=== PATIENT | male | born 1955 | race Two or more races ===

== ENCOUNTER 2019-08-21 15:10 | Inpatient (IN) | payer MEDICAID ==
[~2019-08-21] VITALS: Ht 167.6 cm; Wt 96.6 kg
--- NOTE | 2019-08-21 15:12 | Emergency Room Report ---
History of Present Illness General Chief Complaint: Chest Pain Present Illness HPI Patient is a 66-year-old male presents after increased chest pain for the past 3 days. Prior history of congestive heart failure and pacemaker placement. No prior history of coronary artery disease. He normally takes carvedilol as well as Lasix twice a day. Reports having increased pain at night. States that he had been having some increased difficulty with breathing. He had been given nitroglycerin as well as aspirin by paramedics minimal improvement. Stepped from a bus. He is normally ambulatory with a walker.Patient had onset of symptoms yesterday. Patient had reportedly been compliant with his medications which include Lasix as well as medications for high cholesterol and hypertension. Allergies: Coded Allergies: No Known Allergies (Unverified , 08/21/19) Patient History Past Medical History: see triage record Past Surgical History: pacemaker Reviewed Nursing Documentation: PMH: Agreed; PSxH: Agreed Review of Systems All Other Systems: negative except mentioned in HPI Physical Exam Vital Signs Date Time Temp Pulse Resp B/P (MAP) Pulse Ox O2 Delivery O2 Flow Rate FiO2 08/21/19 15:07 98.2 110 16 168/96 (120) 96 Room Air Sp02 EP Interpretation: reviewed, normal General Appearance: alert, GCS 15, obese Head: atraumatic ENT: normal ENT inspection, hearing grossly normal, normal voice Neck: normal inspection, full range of motion, supple, no bony tend Respiratory: normal inspection, no respiratory distress, no retraction Cardiovascular #1: regular rate, rhythm, no edema Gastrointestinal: normal inspection, normal bowel sounds, non tender, soft, no guarding, no hernia Genitourinary: no CVA tenderness Musculoskeletal: normal inspection, back normal, normal range of motion Neurologic: alert, motor strength/tone normal, utility aide III-XII nml as tested, oriented x3, responsive, speech normal, normal inspection Psychiatric: normal inspection, judgement/insight normal, mood/affect normal Medical Decision Making Diagnostic Impression: Primary Impression: Chest pain Additional Impressions: Abnormal LFTs Metabolic acidosis Elevated troponin ER Course Patient presented for chest pain. Differential diagnosis included but was not limited to acute coronary syndrome, pulmonary embolism, pneumonia, aortic dissection, shingles, pneumothorax, aortic dissection, esophageal rupture, pericarditis. Because of complexity of patient's case laboratory tests and imaging studies were ordered. EKG showed Sinus tachycardia with a rate of [address] or T wave changes. CXR showed cardiomegaly without infiltrate. Patient was given lasix and aspirin. Dr. Williamson was contacted for admission due to covering physician for Dr. Verde. Labs Test 08/21/19 15:45 08/21/19 18:35 White Blood Count 10.1 K/UL (4.8-10.8) Red Blood Count 4.71 M/UL (4.70-6.10) Hemoglobin 14.5 G/DL (14.2-18.0) Hematocrit 43.7 % (42.0-52.0) Mean Corpuscular Volume 93 FL (80-99) Mean Corpuscular Hemoglobin 30.7 PG (27.0-31.0) Mean Corpuscular Hemoglobin Concent 33.1 G/DL (32.0-36.0) Red Cell Distribution Width 14.7 % (11.6-14.8) Platelet Count 239 K/UL (150-450) Mean Platelet Volume 6.2 FL (6.5-10.1) Neutrophils (%) (Auto) 81.4 % (45.0-75.0) Lymphocytes (%) (Auto) 14.1 % (20.0-45.0) Monocytes (%) (Auto) 3.7 % (1.0-10.0) Eosinophils (%) (Auto) 0.0 % (0.0-3.0) Basophils (%) (Auto) 0.8 % (0.0-2.0) Sodium Level 139 MMOL/L (136-145) Potassium Level 3.4 MMOL/L (3.5-5.1) Chloride Level 97 MMOL/L (98-107) Carbon Dioxide Level 13 MMOL/L (21-32) Anion Gap 29 mmol/L (5-15) Blood Urea Nitrogen 16 mg/dL (7-18) Creatinine 0.9 MG/DL (0.55-1.30) Estimat Glomerular Filtration Rate > 60 mL/min (>60) Glucose Level 154 MG/DL (74-106) Calcium Level 8.2 MG/DL (8.5-10.1) Total Bilirubin 1.6 MG/DL (0.2-1.0) Direct Bilirubin 0.4 MG/DL (0.0-0.3) Aspartate Amino Transf (AST/SGOT) 485 U/L (15-37) Alanine Aminotransferase (ALT/SGPT) 369 U/L (12-78) Alkaline Phosphatase 86 U/L (46-116) Pro-B-Type Natriuretic Peptide 904 pg/mL (0-125) Total Protein 7.5 G/DL (6.4-8.2) Albumin 3.3 G/DL (3.4-5.0) Globulin 4.2 g/dL Albumin/Globulin Ratio 0.8 (1.0-2.7) Lipase 328 U/L (73-393) Troponin I 0.117 ng/mL (0.000-0.056) EKG Diagnostic Results Rate: normal Rhythm: NSR ST Segments: no acute changes Last Vital Signs Date Time Temp Pulse Resp B/P (MAP) Pulse Ox O2 Delivery O2 Flow Rate FiO2 08/21/19 15:07 98.2 110 16 168/96 (120) 96 Room Air Status: improved Disposition: ADMITTED INPATIENT Condition: Stable Scripts Unable to Obtain Active Prescriptions or Reported Meds Moris Rayo MD Aug 21, 2019 15:12
[2019-08-21] MEDS ORDERED: Metoprolol Tartrate 5mg/5ml Inj IVP ONE ×2 (15:30→18:45)
[2019-08-21] MEDS ORDERED: Morphine Sulfate 2mg/ml Inj(IV/IM USE ONLY) IVP ONE (15:30)
--- NOTE | 2019-08-21 15:30 | NUR ---
ED Nurse Note:pt. was BIBA from the bus stop with c/o chest pain since yesterday, pt. is A/Ox4, ambulatory with walker, pt. has left chest pacemaker
--- NOTE | 2019-08-21 15:49 | NUR ---
ED Nurse Note:blood sent to labs and IV meds given
--- NOTE | 2019-08-21 16:05 | Diagnostic Imaging Report ---
Indication: Dyspnea Comparison: None A single view chest radiograph was obtained. Findings: No definite infiltrate or pulmonary vascular congestion identified. Single lead pacemaker demonstrated in the left anterior chest wall. The heart is enlarged. The aorta is mildly enlarged consistent with atherosclerotic vascular disease. The bones are osteopenic. There are thoracic vertebral enthesophytes at multiple levels. Impression: No acute disease
[2019-08-21 16:10] VITALS: BP 168/96
[2019-08-21 16:58] LABS: BASOPHILS % (AUTO) 0.8 % (0.0-2.0); HEMATOCRIT 43.7 % (42.0-52.0); HEMOGLOBIN 14.5 G/DL (14.2-18.0); LYMPHOCYTES % (AUTO) 14.1 % (20.0-45.0); MEAN CORPUSCULAR VOLUME 93 FL (80-99); MONOCYTES % (AUTO) 3.7 % (1.0-10.0); NEUTROPHILS % (AUTO) 81.4 % (45.0-75.0); PLATELET COUNT 239 K/UL (150-450); RED BLOOD COUNT 4.71 M/UL (4.70-6.10); RED CELL DISTRIBUTION WIDTH 14.7 % (11.6-14.8); WHITE BLOOD COUNT 10.1 K/UL (4.8-10.8)
[2019-08-21 17:08] LABS: ANION GAP 29 mmol/L (5-15); BLOOD UREA NITROGEN 16 mg/dL (7-18); CALCIUM 8.2 MG/DL (8.5-10.1); CARBON DIOXIDE 13 MMOL/L (21-32); CHLORIDE 97 MMOL/L (98-107); CREATININE 0.9 MG/DL (0.55-1.30); POTASSIUM 3.4 MMOL/L (3.5-5.1); SODIUM 139 MMOL/L (136-145)
[2019-08-21 17:19] LABS: ALANINE AMINOTRANSFERASE 369 U/L (12-78); ALBUMIN 3.3 G/DL (3.4-5.0); ALBUMIN/GLOBULIN RATIO 0.8 (1.0-2.7); ALKALINE PHOSPHATASE 86 U/L (46-116); ASPARTATE AMINO TRANSFERASE 485 U/L (15-37); BILIRUBIN,TOTAL 1.6 MG/DL (0.2-1.0)
[2019-08-21 17:20] LABS: BILIRUBIN,DIRECT 0.4 MG/DL (0.0-0.3)
[2019-08-21 18:14] VITALS: BP 143/91
[2019-08-21] MEDS: Nitroglycerin Subl 0.4mg tab SL PRN ×2 (18:14→18:19)
[2019-08-21] MEDS ORDERED: Morphine Sulfate 4mg/ml Inj (IV USE ONLY) IVP ONE (18:45)
--- NOTE | 2019-08-21 18:52 | NUR ---
ED Nurse Note:repeat troponin sent to labs
[2019-08-21 18:54] VITALS: BP 152/92
[2019-08-21] MEDS ORDERED: Metoprolol Tartrate 5mg/5ml Inj ONE (19:18)
--- NOTE | 2019-08-21 19:19 | NUR ---
ED Nurse Note:second dose out x3 order of metoprolol IV was given
[2019-08-21 19:30] VITALS: BP 148/89
--- NOTE | 2019-08-21 19:30 | NUR ---
ED Nurse Note: received patient from michaela madera. patient in bed with no acute distress. us at bedside. vss.
--- NOTE | 2019-08-21 20:00 | NUR ---
ED Nurse Note: mrsa vre cre swab collected; sent down to lab. belongings list completed.
--- NOTE | 2019-08-21 20:01 | Diagnostic Imaging Report ---
Indication: Abdominal pain Technique: Grayscale and duplex Doppler imaging of the abdomen performed. Comparison: None Findings: Exam is limited by body habitus and bowel gas. The liver is echogenic consistent with fatty infiltration. Doppler interrogation of the main portal vein shows patency with hepatopedal, monophasic flow. There is no biliary ductal dilatation identified. Gallbladder is unremarkable. No obvious stones identified in the gallbladder. Pancreas aorta and IVC are not seen. There is no hydronephrosis. There may be a small stone in the right kidney nonobstructive. IMPRESSION: Fatty liver Suspected nonobstructive stone right kidney. Limited evaluation due to bowel gas
[2019-08-21] MEDS ORDERED: DiphenhydrAMINE 25mg Tab ORAL PRN (20:02)
[2019-08-21] MEDS ORDERED: Nitroglycerin Subl 0.4mg tab SL PRN (20:02)
[2019-08-21 20:40] VITALS: BP 149/93
[2019-08-21] MEDS: D5 1/2NS 1,000 ML IV SCH (21:00)
--- NOTE | 2019-08-21 21:10 | NUR ---
TRANSFER TO FLOOR: Patient transferred to [facility] 208-2 as ordered, per osman lamar. Report given to hsai madera. patient stable for transfer. patient transferred to floor via gurney with grover and rn. belongings and admission packet sent with patient.
[2019-08-21 21:15] VITALS: BP 158/102
--- NOTE | 2019-08-21 21:15 | NUR ---
NURSE NOTES: Received report from Luis Greer RN. Patient was transferred from ED to Telemetry via gurney accompanied by 2 staff members, without any incident. Patient transferred to hospital bed via ambulation with assistance. No signs of acute distress noted. A/Ox4. Primarily German speaking. Checked IV site and flushed. No signs of erythema, bleeding or infiltration noted. Placed tele box on, SR on the monitor, 90bpm. Body assessment done without any skin issues. Belongings list checked done with transferring RN. Walker at bedside. Bed at lowest position, brakes on, siderailsx2. Will continue to monitor. Dr. Lr placed in admitting orders. Noted and carried out.
[2019-08-21] MEDS: Heparin 5000 units/ml inj SUBQ SCH (21:52)
[2019-08-21] MEDS: Docusate 100mg cap ORAL SCH (21:52)
[2019-08-21] MEDS: Hydromorphone 0.5mg/0.5ml inj IVP PRN (21:54)
[2019-08-21] MEDS: LORazepam Inj 2mg/ml 1ml IV PRN (23:37)
[2019-08-22] VITALS: BP 139/84
--- NOTE | 2019-08-22 01:05 | NUR ---
NURSE NOTES: Per field technical specialist, patient has 5 beats of V tach on the monitor, 93 bpm. Immediately went to patient's room, patient is asleep, arousable to name. No signs of acute distress. Patient complained of chest pain, nonradiating, with a pain scale of 7/10. Offered oxygen. Comfort care provided. PRN pain medication given. Will continue to monitor.
[2019-08-22] MEDS: HYDROmorphone 1mg/ml Carpuject IVP PRN (01:26)
[2019-08-22 04:00] VITALS: BP 134/79
--- NOTE | 2019-08-22 04:33 | NUR ---
NURSE NOTES: Resting throughout the night. No significant change of condition noted. Will continue to monitor.
[2019-08-22] MEDS: LORazepam Inj 2mg/ml 1ml IV PRN (06:10)
--- NOTE | 2019-08-22 07:33 | NUR ---
HAND-OFF: Report given to JORGE Zamudio. Plan of care endorsed.
[2019-08-22 08:00] VITALS: BP 160/113
--- NOTE | 2019-08-22 08:06 | NUR ---
NURSE NOTES: recvd report from JORGE Duarte. Pt appears anxious. per Night RN, [facility] will continue dr for alternative anxiety meds/ Addendum: 08/22/19 at 0811 by MICHAEL RUIZ RN Pt is AOx4, pt is on room air. pt is NPO and has left hand 20g running D51/2NS @ 75/hr. Bed in lowest position, call light within reach, will continue with plan of care
[2019-08-22 08:27] LABS: BASOPHILS % (AUTO) 1.7 % (0.0-2.0); EOSINOPHILS % (AUTO) 0.7 % (0.0-3.0); HEMATOCRIT 43.6 % (42.0-52.0); HEMOGLOBIN 15.1 G/DL (14.2-18.0); LYMPHOCYTES % (AUTO) 41.7 % (20.0-45.0); MEAN CORPUSCULAR VOLUME 90 FL (80-99); MONOCYTES % (AUTO) 12.2 % (1.0-10.0); NEUTROPHILS % (AUTO) 43.8 % (45.0-75.0); PLATELET COUNT 223 K/UL (150-450); RED BLOOD COUNT 4.85 M/UL (4.70-6.10); RED CELL DISTRIBUTION WIDTH 12.7 % (11.6-14.8); WHITE BLOOD COUNT 6.4 K/UL (4.8-10.8)
[2019-08-22 08:58] LABS: ALANINE AMINOTRANSFERASE 294 U/L (12-78); ALBUMIN 3.5 G/DL (3.4-5.0); ALBUMIN/GLOBULIN RATIO 0.8 (1.0-2.7); ALKALINE PHOSPHATASE 79 U/L (46-116); ANION GAP 19 mmol/L (5-15); ASPARTATE AMINO TRANSFERASE 313 U/L (15-37); BILIRUBIN,TOTAL 1.7 MG/DL (0.2-1.0); BLOOD UREA NITROGEN 10 mg/dL (7-18); CALCIUM 8.5 MG/DL (8.5-10.1); CARBON DIOXIDE 22 MMOL/L (21-32); CHLORIDE 97 MMOL/L (98-107); CREATININE 0.7 MG/DL (0.55-1.30); POTASSIUM 3.5 MMOL/L (3.5-5.1); SODIUM 138 MMOL/L (136-145)
[2019-08-22 08:59] LABS: BILIRUBIN,DIRECT 0.3 MG/DL (0.0-0.3)
[2019-08-22] MEDS ORDERED: LORazepam Inj 2mg/ml 1ml IV PRN (09:00)
[2019-08-22] MEDS ORDERED: Tubing IV Secondary IV ONE (09:01)
[2019-08-22] MEDS ORDERED: D5 1/2NS 1000ml IV ONE (09:01)
[2019-08-22] MEDS: Docusate 100mg cap ORAL SCH ×2 (09:14→21:04)
[2019-08-22] MEDS: Pantoprazole Inj IV SCH (09:14)
[2019-08-22] MEDS: Carvedilol 6.25mg Tab ORAL SCH (09:15)
[2019-08-22] MEDS: Furosemide 40mg tab ORAL SCH (09:15)
[2019-08-22] MEDS: Losartan 25mg tab ORAL SCH (09:15)
[2019-08-22] MEDS: Heparin 5000 units/ml inj SUBQ SCH (09:16)
[2019-08-22] MEDS: D5 1/2NS 1,000 ML IV SCH ×2 (09:25→23:58)
[2019-08-22] MEDS ORDERED: Omnipaque-300 100ml vial INJ PRN (10:30)
--- NOTE | 2019-08-22 11:05 | GI Initial Consult Note ---
History of Present Illness General Date patient seen: Aug 22, 2019 Time patient seen: 10:59 Reason for Hospitalization: Chest Pain Referring physician: JORGE L Reason for Consultation: ABNORMAL LFTs Present Illness HPI Patient is a 66-year-old male presents after increased chest pain for the past 3 days. Prior history of congestive heart failure and pacemaker placement. No prior history of coronary artery disease. He normally takes carvedilol as well as Lasix twice a day. Reports having increased pain at night. States that he had been having some increased difficulty with breathing. He had been given nitroglycerin as well as aspirin by paramedics minimal improvement. Stepped from a bus. He is normally ambulatory with a walker.Patient had onset of symptoms yesterday. Patient had reportedly been compliant with his medications which include Lasix as well as medications for high cholesterol and hypertension. GI consulted for reported abnormal LFTs. Patient seen, awake alert oriented x4 no apparent distress. The patient had complaint of chest pain which has improved. The patient has no active signs or symptoms of any nausea vomiting. Denied any constipation or diarrhea. The patient did state he had a history of endoscopy, but unsure of exact date. The patient had an abdominal ultrasound performed however the aorta, IVC and pancreas was not visualized secondary to overlying bowel gas and the patient's body habitus. Steatosis of the liver was present. No abdominal fluid collections noted. Labs reviewed note that the patient's total bilirubin 1.7 AST 313, ALT 294, troponin 0.117. Home Meds Unable to Obtain Active Prescriptions or Reported Meds Med list reviewed/reconciled: Yes Allergies: Coded Allergies: No Known Allergies (Unverified , 08/21/19) Patient History PMH Narrative Past Medical History: see triage record Past Surgical History: pacemaker Reviewed Nursing Documentation: PMH: Agreed; PSxH: Agreed Review of Systems All Other Systems: negative except mentioned in HPI Physical Exam Vital Signs Date Time Temp Pulse Resp B/P (MAP) Pulse Ox O2 Delivery O2 Flow Rate FiO2 08/21/19 15:07 98.2 110 16 168/96 (120) 96 Room Air Sp02 EP Interpretation: reviewed, normal Labs Laboratory Tests Test 08/21/19 15:45 08/21/19 18:35 08/22/19 07:40 White Blood Count 10.1 K/UL (4.8-10.8) 6.4 K/UL (4.8-10.8) Red Blood Count 4.71 M/UL (4.70-6.10) 4.85 M/UL (4.70-6.10) Hemoglobin 14.5 G/DL (14.2-18.0) 15.1 G/DL (14.2-18.0) Hematocrit 43.7 % (42.0-52.0) 43.6 % (42.0-52.0) Mean Corpuscular Volume 93 FL (80-99) 90 FL (80-99) Mean Corpuscular Hemoglobin 30.7 PG (27.0-31.0) 31.2 PG (27.0-31.0) H Mean Corpuscular Hemoglobin Concent 33.1 G/DL (32.0-36.0) 34.7 G/DL (32.0-36.0) Red Cell Distribution Width 14.7 % (11.6-14.8) 12.7 % (11.6-14.8) Platelet Count 239 K/UL (150-450) 223 K/UL (150-450) Mean Platelet Volume 6.2 FL (6.5-10.1) L 5.7 FL (6.5-10.1) L Neutrophils (%) (Auto) 81.4 % (45.0-75.0) H 43.8 % (45.0-75.0) L Lymphocytes (%) (Auto) 14.1 % (20.0-45.0) L 41.7 % (20.0-45.0) Monocytes (%) (Auto) 3.7 % (1.0-10.0) 12.2 % (1.0-10.0) H Eosinophils (%) (Auto) 0.0 % (0.0-3.0) 0.7 % (0.0-3.0) Basophils (%) (Auto) 0.8 % (0.0-2.0) 1.7 % (0.0-2.0) Sodium Level 139 MMOL/L (136-145) 138 MMOL/L (136-145) Potassium Level 3.4 MMOL/L (3.5-5.1) L 3.5 MMOL/L (3.5-5.1) Chloride Level 97 MMOL/L (98-107) L 97 MMOL/L (98-107) L Carbon Dioxide Level 13 MMOL/L (21-32) L 22 MMOL/L (21-32) Anion Gap 29 mmol/L (5-15) H 19 mmol/L (5-15) H Blood Urea Nitrogen 16 mg/dL (7-18) 10 mg/dL (7-18) Creatinine 0.9 MG/DL (0.55-1.30) 0.7 MG/DL (0.55-1.30) Estimat Glomerular Filtration Rate > 60 mL/min (>60) > 60 mL/min (>60) Glucose Level 154 MG/DL (74-106) H 141 MG/DL (74-106) H Calcium Level 8.2 MG/DL (8.5-10.1) L 8.5 MG/DL (8.5-10.1) Total Bilirubin 1.6 MG/DL (0.2-1.0) H 1.7 MG/DL (0.2-1.0) H Direct Bilirubin 0.4 MG/DL (0.0-0.3) H 0.3 MG/DL (0.0-0.3) Aspartate Amino Transf (AST/SGOT) 485 U/L (15-37) H 313 U/L (15-37) H Alanine Aminotransferase (ALT/SGPT) 369 U/L (12-78) H 294 U/L (12-78) H Alkaline Phosphatase 86 U/L (46-116) 79 U/L (46-116) Troponin I 0.109 ng/mL (0.000-0.056) 0.117 ng/mL (0.000-0.056) Pro-B-Type Natriuretic Peptide 904 pg/mL (0-125) H Total Protein 7.5 G/DL (6.4-8.2) 7.9 G/DL (6.4-8.2) Albumin 3.3 G/DL (3.4-5.0) L 3.5 G/DL (3.4-5.0) Globulin 4.2 g/dL 4.4 g/dL Albumin/Globulin Ratio 0.8 (1.0-2.7) L 0.8 (1.0-2.7) L Lipase 328 U/L (73-393) General Appearance: well appearing, no apparent distress, alert Head: normocephalic EENT: PERRL/EOMI, normal ENT inspection Neck: supple Respiratory: normal breath sounds, no respiratory distress Cardiovascular: normal rate Gastrointestinal: normal inspection, non tender, soft, normal bowel sounds, non -distended Rectal: deferred Genitourinary: deferred Musculoskeletal: normal inspection, back normal Neurologic: alert, oriented x3, responsive, normal inspection Psychiatric: normal inspection, judgement/insight normal, memory normal Skin: normal inspection, normal color, no rash, warm/dry, palpation normal, well hydrated Lymphatic: normal inspection, no adenopathy Current Medications Current Medications Medications (Trade) Dose Ordered Sig/Fay Route PRN Reason Start Time Stop Time Status Last Admin Dose Admin Acetaminophen (Tylenol) 650 mg Q4H PRN ORAL Mild Pain (Pain Scale 1-3) 08/21/19 20:02 09/20/19 20:01 Barium Sulfate (Readi-Cat 2) 450 ml NOW PRN ORAL Radiology Procedure 08/22/19 10:30 08/24/19 10:28 Carvedilol (Coreg) 6.25 mg DAILY ORAL 08/22/19 09:00 09/21/19 08:59 08/22/19 09:15 Dextrose (Dextrose 50%) 25 ml Q30M PRN IV Hypoglycemia 08/21/19 20:02 09/20/19 20:01 Dextrose (Dextrose 50%) 50 ml Q30M PRN IV Hypoglycemia 08/21/19 20:02 09/20/19 20:01 Dextrose/Sodium Chloride 1,000 ml @ 75 mls/hr [id number] IV 08/21/19 21:00 09/20/19 20:59 08/22/19 09:25 Diphenhydramine HCl (Benadryl) 25 mg Q6H PRN ORAL Itching/Pruritis 08/21/19 20:02 09/20/19 20:01 Docusate Sodium (Colace) 100 mg EVERY 12 HOURS ORAL 08/21/19 21:00 09/20/19 20:59 08/22/19 09:14 Furosemide (Lasix) 40 mg DAILY ORAL 08/22/19 09:00 09/21/19 08:59 08/22/19 09:15 Heparin Sodium (Porcine) (Heparin 5000 units/ml) 5,000 units EVERY 12 HOURS SUBQ 08/21/19 21:00 09/20/19 20:59 08/22/19 09:16 Hydromorphone HCl (Dilaudid) 0.5 mg Q4H PRN IVP Moderate Pain (Pain Scale 4-6) 08/21/19 20:07 08/28/19 20:06 08/21/19 21:54 Hydromorphone HCl (Dilaudid) 1 mg Q4H PRN IVP Severe Pain (Pain Scale 7-10) 08/21/19 20:07 08/28/19 20:06 08/22/19 01:26 Iohexol (OMNIPAQUE-300 100ml) 100 ml NOW PRN INJ Radiology Procedure 08/22/19 10:30 08/24/19 10:28 Lorazepam (Ativan 2mg/ml 1ml) 1 mg Q4H PRN IV For Anxiety 08/22/19 09:00 08/29/19 08:59 08/22/19 09:17 Losartan Potassium (Cozaar) 25 mg DAILY ORAL 08/22/19 09:00 09/21/19 08:59 08/22/19 09:15 Nitroglycerin (Ntg) 0.4 mg Q5M X 3 DOSES PRN SL Prn Chest Pain 08/21/19 20:02 09/20/19 20:01 08/22/19 09:17 Ondansetron HCl (Zofran) 4 mg Q6H PRN IVP Nausea & Vomiting 08/21/19 20:02 09/20/19 20:01 08/21/19 21:52 Pantoprazole (Protonix) 40 mg DAILY IV 08/22/19 09:00 09/21/19 08:59 08/22/19 09:14 GI: Plan Problems: (1) Abnormal LFTs (2) Chest pain (3) Elevated troponin (4) Metabolic acidosis Plan Abdominal ultrasound review >> unable to visualize given patient's body habitus and overlying gas Will obtain abdominal pelvis CT to evaluate hepatocellular versus cholestatic disease Transaminitis could also be elevated due to hepatic congestion given the patient has prior history of CHF Will obtain hepatitis panel to rule out any viral infection No plans for any GI procedures at this time given elevated troponin levels Follow-up cardiology recommendations We will consider GI procedures if needed Repeat liver function test for tomorrow Advance diet as tolerated PPI We will follow on a daily basis with any additional recommendations Discussed with Dr. Viera. Thank you for this patient referral, we will follow. The patient was seen and examined at bedside and all new and available data was reviewed in the patients chart. I agree with the above findings, impression and plan. (Patient seen earlier today. Signature stamp does not reflect patient encounter time.). - MD Andreia MiguelReunion Rehabilitation Hospital PhoenixOlivia RETAIL BUSINESS MANAGER Aug 22, 2019 11:05
--- NOTE | 2019-08-22 11:43 | Consultation ---
History of Present Illness General Date patient seen: Aug 22, 2019 Time patient seen: 11:30 Chief Complaint: Chest Pain Referring physician: JORGE L Reason for Consultation: ABNORMAL LFTs Present Illness HPI Patient is a 66-year-old male presents after increased chest pain for the past 3 days. Patient has prior hx of CHF and PPM. Cardiology consulted for elevated /rising troponin. CP improved with aspirin and nitro. Initial troponin 0.117. Patient also had episode of NSVT. Allergies: Coded Allergies: No Known Allergies (Unverified , 08/21/19) Medication History Unable to Obtain Active Prescriptions or Reported Meds Patient History Healthcare decision maker N Resuscitation status Full Code Advanced Directive on File Review of Systems Constitutional: Reports: no symptoms Eye: Reports: no symptoms ENT: Reports: no symptoms Respiratory: Reports: no symptoms Cardiovascular: Reports: chest pain Gastrointestinal: Reports: no symptoms Genitourinary: Reports: no symptoms Musculoskeletal: Reports: no symptoms Skin: Reports: no symptoms Psychiatric: Reports: no symptoms Neurological: Reports: no symptoms Endocrine: Reports: no symptoms Hematologic/Lymphatic: Reports: no symptoms Physical Exam General Appearance: no apparent distress, alert Lines, tubes and drains: peripheral HEENT: normocephalic, atraumatic Neck: non-tender, normal alignment, supple, normal inspection Respiratory/Chest: chest wall non-tender, lungs clear, normal breath sounds, no respiratory distress, no accessory muscle use Cardiovascular/Chest: normal peripheral pulses, normal rate, regular rhythm Abdomen: normal bowel sounds, non tender Extremities: normal range of motion, non-tender, normal inspection Skin Exam: normal pigmentation, warm/dry, cyanotic Neurologic: databases software consultant II-XII grossly normal, no motor/sensory deficits Last 24 Hour Vital Signs Date Time Temp Pulse Resp B/P (MAP) Pulse Ox O2 Delivery O2 Flow Rate FiO2 08/22/19 09:17 160/113 08/22/19 09:15 160/113 08/22/19 09:15 97 160/113 08/22/19 08:00 91 08/22/19 08:00 98.0 97 20 160/113 (129) 96 08/22/19 04:00 97.9 94 18 134/79 (97) 97 08/22/19 04:00 96 08/22/19 01:56 98.0 08/22/19 00:00 86 08/22/19 00:00 98.0 87 18 139/84 (102) 98 08/21/19 22:24 98.2 08/21/19 21:30 Room Air 08/21/19 21:19 90 08/21/19 21:15 97.7 98 20 158/102 (120) 94 08/21/19 21:10 98.2 88 16 149/93 98 Room Air 08/21/19 20:40 98.2 88 16 149/93 98 Room Air 08/21/19 19:30 98.2 89 16 148/89 98 Room Air 08/21/19 19:26 98.2 08/21/19 19:00 96 152/92 08/21/19 18:54 98.2 96 16 152/92 98 Room Air 08/21/19 18:19 143/91 08/21/19 18:14 143/91 08/21/19 18:14 98.2 87 16 143/91 98 Room Air 08/21/19 16:17 98.2 08/21/19 16:10 105 16 Room Air 08/21/19 16:10 98.2 105 16 168/96 96 Room Air 08/21/19 15:33 110 168/96 08/21/19 15:07 98.2 110 16 168/96 (120) 96 Room Air Intake and Output 08/21/19 08/22/19 19:00 07:00 Intake Total 1110 ml Balance 1110 ml Intake Oral 360 ml IV Total 750 ml # Voids 1 3 Laboratory Tests Test 08/21/19 15:45 08/21/19 18:35 08/22/19 07:40 White Blood Count 10.1 K/UL (4.8-10.8) 6.4 K/UL (4.8-10.8) Red Blood Count 4.71 M/UL (4.70-6.10) 4.85 M/UL (4.70-6.10) Hemoglobin 14.5 G/DL (14.2-18.0) 15.1 G/DL (14.2-18.0) Hematocrit 43.7 % (42.0-52.0) 43.6 % (42.0-52.0) Mean Corpuscular Volume 93 FL (80-99) 90 FL (80-99) Mean Corpuscular Hemoglobin 30.7 PG (27.0-31.0) 31.2 PG (27.0-31.0) H Mean Corpuscular Hemoglobin Concent 33.1 G/DL (32.0-36.0) 34.7 G/DL (32.0-36.0) Red Cell Distribution Width 14.7 % (11.6-14.8) 12.7 % (11.6-14.8) Platelet Count 239 K/UL (150-450) 223 K/UL (150-450) Mean Platelet Volume 6.2 FL (6.5-10.1) L 5.7 FL (6.5-10.1) L Neutrophils (%) (Auto) 81.4 % (45.0-75.0) H 43.8 % (45.0-75.0) L Lymphocytes (%) (Auto) 14.1 % (20.0-45.0) L 41.7 % (20.0-45.0) Monocytes (%) (Auto) 3.7 % (1.0-10.0) 12.2 % (1.0-10.0) H Eosinophils (%) (Auto) 0.0 % (0.0-3.0) 0.7 % (0.0-3.0) Basophils (%) (Auto) 0.8 % (0.0-2.0) 1.7 % (0.0-2.0) Sodium Level 139 MMOL/L (136-145) 138 MMOL/L (136-145) Potassium Level 3.4 MMOL/L (3.5-5.1) L 3.5 MMOL/L (3.5-5.1) Chloride Level 97 MMOL/L (98-107) L 97 MMOL/L (98-107) L Carbon Dioxide Level 13 MMOL/L (21-32) L 22 MMOL/L (21-32) Anion Gap 29 mmol/L (5-15) H 19 mmol/L (5-15) H Blood Urea Nitrogen 16 mg/dL (7-18) 10 mg/dL (7-18) Creatinine 0.9 MG/DL (0.55-1.30) 0.7 MG/DL (0.55-1.30) Estimat Glomerular Filtration Rate > 60 mL/min (>60) > 60 mL/min (>60) Glucose Level 154 MG/DL (74-106) H 141 MG/DL (74-106) H Calcium Level 8.2 MG/DL (8.5-10.1) L 8.5 MG/DL (8.5-10.1) Total Bilirubin 1.6 MG/DL (0.2-1.0) H 1.7 MG/DL (0.2-1.0) H Direct Bilirubin 0.4 MG/DL (0.0-0.3) H 0.3 MG/DL (0.0-0.3) Aspartate Amino Transf (AST/SGOT) 485 U/L (15-37) H 313 U/L (15-37) H Alanine Aminotransferase (ALT/SGPT) 369 U/L (12-78) H 294 U/L (12-78) H Alkaline Phosphatase 86 U/L (46-116) 79 U/L (46-116) Troponin I 0.109 ng/mL (0.000-0.056) 0.117 ng/mL (0.000-0.056) Pro-B-Type Natriuretic Peptide 904 pg/mL (0-125) H Total Protein 7.5 G/DL (6.4-8.2) 7.9 G/DL (6.4-8.2) Albumin 3.3 G/DL (3.4-5.0) L 3.5 G/DL (3.4-5.0) Globulin 4.2 g/dL 4.4 g/dL Albumin/Globulin Ratio 0.8 (1.0-2.7) L 0.8 (1.0-2.7) L Lipase 328 U/L (73-393) Height (Feet): 5 Height (Inches): 6.00 Weight (Pounds): 222 Medications Current Medications Medications (Trade) Dose Ordered Sig/Fay Route PRN Reason Start Time Stop Time Status Last Admin Dose Admin Acetaminophen (Tylenol) 650 mg Q4H PRN ORAL Mild Pain (Pain Scale 1-3) 08/21/19 20:02 09/20/19 20:01 Barium Sulfate (Readi-Cat 2) 450 ml NOW PRN ORAL Radiology Procedure 08/22/19 10:30 08/24/19 10:28 Carvedilol (Coreg) 6.25 mg DAILY ORAL 08/22/19 09:00 09/21/19 08:59 08/22/19 09:15 Dextrose (Dextrose 50%) 25 ml Q30M PRN IV Hypoglycemia 08/21/19 20:02 09/20/19 20:01 Dextrose (Dextrose 50%) 50 ml Q30M PRN IV Hypoglycemia 08/21/19 20:02 09/20/19 20:01 Dextrose/Sodium Chloride 1,000 ml @ 75 mls/hr [id number] IV 08/21/19 21:00 09/20/19 20:59 08/22/19 09:25 Diphenhydramine HCl (Benadryl) 25 mg Q6H PRN ORAL Itching/Pruritis 08/21/19 20:02 09/20/19 20:01 Docusate Sodium (Colace) 100 mg EVERY 12 HOURS ORAL 08/21/19 21:00 09/20/19 20:59 08/22/19 09:14 Furosemide (Lasix) 40 mg DAILY ORAL 08/22/19 09:00 09/21/19 08:59 08/22/19 09:15 Heparin Sodium (Porcine) (Heparin 5000 units/ml) 5,000 units EVERY 12 HOURS SUBQ 08/21/19 21:00 09/20/19 20:59 08/22/19 09:16 Hydromorphone HCl (Dilaudid) 0.5 mg Q4H PRN IVP Moderate Pain (Pain Scale 4-6) 08/21/19 20:07 08/28/19 20:06 08/21/19 21:54 Hydromorphone HCl (Dilaudid) 1 mg Q4H PRN IVP Severe Pain (Pain Scale 7-10) 08/21/19 20:07 08/28/19 20:06 08/22/19 01:26 Iohexol (OMNIPAQUE-300 100ml) 100 ml NOW PRN INJ Radiology Procedure 08/22/19 10:30 08/24/19 10:28 Lorazepam (Ativan 2mg/ml 1ml) 1 mg Q4H PRN IV For Anxiety 08/22/19 09:00 08/29/19 08:59 08/22/19 09:17 Losartan Potassium (Cozaar) 25 mg DAILY ORAL 08/22/19 09:00 09/21/19 08:59 08/22/19 09:15 Nitroglycerin (Ntg) 0.4 mg Q5M X 3 DOSES PRN SL Prn Chest Pain 08/21/19 20:02 09/20/19 20:01 08/22/19 09:17 Ondansetron HCl (Zofran) 4 mg Q6H PRN IVP Nausea & Vomiting 08/21/19 20:02 09/20/19 20:01 08/21/19 21:52 Pantoprazole (Protonix) 40 mg DAILY IV 08/22/19 09:00 09/21/19 08:59 08/22/19 09:14 Assessment/Plan Status: stable Assessment/Plan: Assessment: Chest pain CHF acute on chronic NSVT Elevated troponin/ACS Elevated LFT Plan: Aspirin/plavix Heparin gtt 48 hours Continue coreg/losartan Statin Nitro prn Stress test prior to d/c Ideally patient needs cardiac cath, if transfer to [facility] can be facilitated. Erickson Marin MD Aug 22, 2019 11:43
[2019-08-22 12:00] VITALS: BP 146/98
[2019-08-22] MEDS ORDERED: Heparin 25,000u/D5W 500ml 500 ML IV SCH ×2 (12:30→23:15)
[2019-08-22] MEDS ORDERED: Heparin 5000 units/ml inj IV SCH ×2 (12:30→23:15)
--- NOTE | 2019-08-22 13:03 | History and Physical ---
History of Present Illness General Date patient seen: Aug 22, 2019 Time patient seen: 09:25 Reason for Hospitalization: Chest Pain Present Illness HPI Mr. Le is a 66 year old male with hx of systolic CHF, s/p PPM, presenting with chest pain, abdominal pain, nausea that started last night. He reports taking all his medications including lasix and coreg, last drink was ~1 week ago. He was in normal state of health until yesterday late afternoon when he had sudden onset of symptoms. Allergies: Coded Allergies: No Known Allergies (Unverified , 08/21/19) Medication History Unable to Obtain Active Prescriptions or Reported Meds Patient History Healthcare decision maker N Resuscitation status Full Code Advanced Directive on File Review of Systems Constitutional: Denies: no symptoms, see HPI, chills, sweats, fever, malaise, weakness, other Eye: Denies: no symptoms, see HPI, eye pain, blurred vision, tearing, double vision, nose pain, nose congestion, acuity changes, discharge, other ENT: Denies: no symptoms, see HPI, ear pain, ear discharge, nose pain, nose congestion, throat pain, throat swelling, mouth pain, hearing loss, nasal discharge, other Respiratory: Denies: no symptoms, see HPI, cough, orthopnea, shortness of breath, stridor, wheezing, SHAH, sputum, other Cardiovascular: Reports: chest pain Gastrointestinal: Reports: abdominal pain Genitourinary: Denies: no symptoms, see HPI, discharge, dysuria, frequency, hematuria, pain, retention, incontinence, urgency, vag bleed/dc, other Musculoskeletal: Denies: no symptoms, see HPI, back pain, gout, joint pain, joint swelling, muscle pain, muscle stiffness, other Skin: Denies: no symptoms, see HPI, rash, change in color, change in hair/nails , dryness, lesions, other Psychiatric: Denies: no symptoms, see HPI, prior hx, anxiety, depressed feelings, emotional problems, SI, HI, hallucinations, other Neurological: Denies: no symptoms, see HPI, headache, numbness, paresthesia, seizure, tingling, tremors, focal weakness, syncope, dizziness, other Endocrine: Denies: no symptoms, see HPI, excessive sweating, flushing, intolerance to temperature, increased thirst, increased urine, unexplained weight loss, other Hematologic/Lymphatic: Denies: no symptoms, see HPI, anemia, blood clots, easy bleeding, easy bruising, swollen glands, diathesis, other Physical Exam General Appearance: alert, mild distress HEENT: normocephalic, atraumatic Neck: supple Respiratory/Chest: lungs clear, normal breath sounds Cardiovascular/Chest: normal rate, regular rhythm Abdomen: non tender, soft Extremities: no edema Neurologic: alert, oriented x 3 Last 24 Hour Vital Signs Date Time Temp Pulse Resp B/P (MAP) Pulse Ox O2 Delivery O2 Flow Rate FiO2 08/22/19 12:00 97.7 83 20 146/98 (114) 95 08/22/19 09:17 160/113 08/22/19 09:15 160/113 08/22/19 09:15 97 160/113 08/22/19 09:00 Room Air 08/22/19 08:00 91 08/22/19 08:00 98.0 97 20 160/113 (129) 96 08/22/19 04:00 97.9 94 18 134/79 (97) 97 08/22/19 04:00 96 08/22/19 01:56 98.0 08/22/19 00:00 86 08/22/19 00:00 98.0 87 18 139/84 (102) 98 08/21/19 22:24 98.2 08/21/19 21:30 Room Air 08/21/19 21:19 90 08/21/19 21:15 97.7 98 20 158/102 (120) 94 08/21/19 21:10 98.2 88 16 149/93 98 Room Air 08/21/19 20:40 98.2 88 16 149/93 98 Room Air 08/21/19 19:30 98.2 89 16 148/89 98 Room Air 08/21/19 19:26 98.2 08/21/19 19:00 96 152/92 08/21/19 18:54 98.2 96 16 152/92 98 Room Air 08/21/19 18:19 143/91 08/21/19 18:14 143/91 08/21/19 18:14 98.2 87 16 143/91 98 Room Air 08/21/19 16:17 98.2 08/21/19 16:10 105 16 Room Air 08/21/19 16:10 98.2 105 16 168/96 96 Room Air 08/21/19 15:33 110 168/96 08/21/19 15:07 98.2 110 16 168/96 (120) 96 Room Air Intake and Output 08/21/19 08/22/19 19:00 07:00 Intake Total 1110 ml Balance 1110 ml Intake Oral 360 ml IV Total 750 ml # Voids 1 3 Laboratory Tests Test 08/21/19 15:45 08/21/19 18:35 08/22/19 07:40 08/22/19 12:05 White Blood Count 10.1 K/UL (4.8-10.8) 6.4 K/UL (4.8-10.8) Red Blood Count 4.71 M/UL (4.70-6.10) 4.85 M/UL (4.70-6.10) Hemoglobin 14.5 G/DL (14.2-18.0) 15.1 G/DL (14.2-18.0) Hematocrit 43.7 % (42.0-52.0) 43.6 % (42.0-52.0) Mean Corpuscular Volume 93 FL (80-99) 90 FL (80-99) Mean Corpuscular Hemoglobin 30.7 PG (27.0-31.0) 31.2 PG (27.0-31.0) H Mean Corpuscular Hemoglobin Concent 33.1 G/DL (32.0-36.0) 34.7 G/DL (32.0-36.0) Red Cell Distribution Width 14.7 % (11.6-14.8) 12.7 % (11.6-14.8) Platelet Count 239 K/UL (150-450) 223 K/UL (150-450) Mean Platelet Volume 6.2 FL (6.5-10.1) L 5.7 FL (6.5-10.1) L Neutrophils (%) (Auto) 81.4 % (45.0-75.0) H 43.8 % (45.0-75.0) L Lymphocytes (%) (Auto) 14.1 % (20.0-45.0) L 41.7 % (20.0-45.0) Monocytes (%) (Auto) 3.7 % (1.0-10.0) 12.2 % (1.0-10.0) H Eosinophils (%) (Auto) 0.0 % (0.0-3.0) 0.7 % (0.0-3.0) Basophils (%) (Auto) 0.8 % (0.0-2.0) 1.7 % (0.0-2.0) Sodium Level 139 MMOL/L (136-145) 138 MMOL/L (136-145) Potassium Level 3.4 MMOL/L (3.5-5.1) L 3.5 MMOL/L (3.5-5.1) Chloride Level 97 MMOL/L (98-107) L 97 MMOL/L (98-107) L Carbon Dioxide Level 13 MMOL/L (21-32) L 22 MMOL/L (21-32) Anion Gap 29 mmol/L (5-15) H 19 mmol/L (5-15) H Blood Urea Nitrogen 16 mg/dL (7-18) 10 mg/dL (7-18) Creatinine 0.9 MG/DL (0.55-1.30) 0.7 MG/DL (0.55-1.30) Estimat Glomerular Filtration Rate > 60 mL/min (>60) > 60 mL/min (>60) Glucose Level 154 MG/DL (74-106) H 141 MG/DL (74-106) H Calcium Level 8.2 MG/DL (8.5-10.1) L 8.5 MG/DL (8.5-10.1) Total Bilirubin 1.6 MG/DL (0.2-1.0) H 1.7 MG/DL (0.2-1.0) H Direct Bilirubin 0.4 MG/DL (0.0-0.3) H 0.3 MG/DL (0.0-0.3) Aspartate Amino Transf (AST/SGOT) 485 U/L (15-37) H 313 U/L (15-37) H Alanine Aminotransferase (ALT/SGPT) 369 U/L (12-78) H 294 U/L (12-78) H Alkaline Phosphatase 86 U/L (46-116) 79 U/L (46-116) Troponin I 0.109 ng/mL (0.000-0.056) 0.117 ng/mL (0.000-0.056) Pro-B-Type Natriuretic Peptide 904 pg/mL (0-125) H Total Protein 7.5 G/DL (6.4-8.2) 7.9 G/DL (6.4-8.2) Albumin 3.3 G/DL (3.4-5.0) L 3.5 G/DL (3.4-5.0) Globulin 4.2 g/dL 4.4 g/dL Albumin/Globulin Ratio 0.8 (1.0-2.7) L 0.8 (1.0-2.7) L Lipase 328 U/L (73-393) Prothrombin Time 10.2 SEC (9.30-11.50) Prothromb Time International Ratio 1.0 (0.9-1.1) Activated Partial Thromboplast Time 25 SEC (23-33) Height (Feet): 5 Height (Inches): 6.00 Weight (Pounds): 222 Medications Current Medications Medications (Trade) Dose Ordered Sig/Fay Route PRN Reason Start Time Stop Time Status Last Admin Dose Admin Acetaminophen (Tylenol) 650 mg Q4H PRN ORAL Mild Pain (Pain Scale 1-3) 08/21/19 20:02 09/20/19 20:01 Barium Sulfate (Readi-Cat 2) 450 ml NOW PRN ORAL Radiology Procedure 08/22/19 10:30 08/24/19 10:28 Carvedilol (Coreg) 6.25 mg DAILY ORAL 08/22/19 09:00 09/21/19 08:59 08/22/19 09:15 Dextrose (Dextrose 50%) 25 ml Q30M PRN IV Hypoglycemia 08/21/19 20:02 09/20/19 20:01 Dextrose (Dextrose 50%) 50 ml Q30M PRN IV Hypoglycemia 08/21/19 20:02 09/20/19 20:01 Dextrose/Sodium Chloride 1,000 ml @ 75 mls/hr [id number] IV 08/21/19 21:00 09/20/19 20:59 08/22/19 09:25 Diphenhydramine HCl (Benadryl) 25 mg Q6H PRN ORAL Itching/Pruritis 08/21/19 20:02 09/20/19 20:01 Docusate Sodium (Colace) 100 mg EVERY 12 HOURS ORAL 08/21/19 21:00 09/20/19 20:59 08/22/19 09:14 Furosemide (Lasix) 40 mg DAILY ORAL 08/22/19 09:00 09/21/19 08:59 08/22/19 09:15 Heparin Sodium (Porcine) (Heparin 5000 units/ml) 6,000 units ONCE IV 08/22/19 12:30 08/22/19 13:30 Heparin Sodium/ Dextrose 500 ml @ 20.14 mls/ hr ADJUST PER PROTOCOL IV 08/22/19 12:30 09/21/19 12:29 Hydromorphone HCl (Dilaudid) 0.5 mg Q4H PRN IVP Moderate Pain (Pain Scale 4-6) 08/21/19 20:07 08/28/19 20:06 08/21/19 21:54 Hydromorphone HCl (Dilaudid) 1 mg Q4H PRN IVP Severe Pain (Pain Scale 7-10) 08/21/19 20:07 08/28/19 20:06 08/22/19 01:26 Iohexol (OMNIPAQUE-300 100ml) 100 ml NOW PRN INJ Radiology Procedure 08/22/19 10:30 08/24/19 10:28 Lorazepam (Ativan 2mg/ml 1ml) 1 mg Q4H PRN IV For Anxiety 08/22/19 09:00 08/29/19 08:59 08/22/19 09:17 Losartan Potassium (Cozaar) 25 mg DAILY ORAL 08/22/19 09:00 09/21/19 08:59 08/22/19 09:15 Nitroglycerin (Ntg) 0.4 mg Q5M X 3 DOSES PRN SL Prn Chest Pain 08/21/19 20:02 09/20/19 20:01 08/22/19 09:17 Ondansetron HCl (Zofran) 4 mg Q6H PRN IVP Nausea & Vomiting 08/21/19 20:02 09/20/19 20:01 08/21/19 21:52 Pantoprazole (Protonix) 40 mg DAILY IV 08/22/19 09:00 09/21/19 08:59 08/22/19 09:14 Assessment/Plan Problem List: (1) Metabolic acidosis ICD Codes: E87.2 - Acidosis SNOMED: 76525096, 173917348, 374112400 (2) Elevated troponin ICD Codes: R79.89 - Other specified abnormal findings of blood chemistry SNOMED: 302268216, 324336360, 526278028 (3) Chest pain ICD Codes: R07.9 - Chest pain, unspecified SNOMED: 35803126 (4) Abnormal LFTs ICD Codes: R94.5 - Abnormal results of liver function studies SNOMED: 592683779 Status: stable Diagnosis [place] I: Mr. Le is a 64 year old male with hx of systolic CHF, HTN, presenting with acute onset chest pain, found to have transaminitis. #Chest pain #ACS #HTN #Chronic systolic CHF -Admit to inpatient -Cardiology consult -heparin gtt (08/21 -) -Continue home lasix 40 daily. -Continue home coreg 6.25 BID -Continue losartan 25 daily -Obtain TTE #Transaminitis #Abdominal pain -GI consult placed. appreciate recs. -obtain CT A/P for further visualization. -trend LFT's Extra 37 minutes spent on chart review of pertiennt info (meds, labs, imaging, sql server consultant notes, etc.) Time of note doesn't reflect time of encounter. Ana Paula Williamson M.D. Aug 22, 2019 13:03
--- NOTE | 2019-08-22 13:20 | NUR ---
*-* INSURANCE *-* ALL CLINICALS HAVE BEEN [facility]ED TO; [facility] P:[phone] F: [phone] (FAX CLINICALS HERE AND TO [phone])
--- NOTE | 2019-08-22 14:31 | NUR ---
CASE MANAGEMENT:REVIEW 64 YR OLD MALE BIBA FROM BUS STOP PMH: PACEMAKER CC; CHEST PAIN SI: ACS 98.2 110 16 168/96 96% ON RA TBILI+1.6 DBILI+0.4 AST/ALT+485/369 TROPONIN(+) 0.109 AND 0.117 IS: ASA PO GIVEN LOADER UNLOADER NITRO X2 GIVEN LOADER UNLOADER IV MORPHINE IV METOPROLOL X3 IV LASIX CHEST XRAY : TO TELEMETRY PLAN: CT ABD/PELVIS 2DECHO ABD US
[2019-08-22 16:00] VITALS: BP 134/81
--- NOTE | 2019-08-22 16:30 | Diagnostic Imaging Report ---
INDICATION: Abdominal pain TECHNIQUE: Continuous helical transaxial imaging of the abdomen and pelvis was obtained from the lung bases to the pubic symphysis during intravenous contrast administration. Coronal 2-D reformats were also obtained. Study obtained in a Siemens sensation [address] Automatic Exposure Control was utilized. Total Dose length Product (DLP): 1142.[address] Dose Index Volume (CTDIvol): 20.20 mGy COMPARISON: None FINDINGS: Lungs: The heart is prominent in size. There is a pacemaker present. Small hiatal hernia noted. The lung bases are clear.. Liver: Diffuse low-attenuation of the liver demonstrated consistent with fatty infiltration Gallbladder/biliary system: No gallstones are identified. There is no evidence of intrahepatic or extrahepatic biliary ductal dilatation. Spleen: Unremarkable Pancreas: Unremarkable Kidneys/Bladder: There are punctate nonobstructive stones within the right kidney. There is no hydronephrosis. There is a tiny cyst about 4 mm in size in the anterior part of the right kidney. There is no hydronephrosis.. Adrenal glands: Unremarkable Aorta/IVC: Unremarkable Bowel: Bowel gas pattern is nonobstructive. Appendix is seen and appears normal. Few diverticula noted in the sigmoid colon. Peritoneum: There is no free fluid. Bones: There is narrowing of intervertebral discs and accompanying endplate osteophyte formation. Hypertrophied facet joints also demonstrated. IMPRESSION: Small nonobstructive stones within the right kidney. Fatty liver Diverticulosis of the colon Other incidental findings as above The CT scanner at [facility] is accredited by the [employer] and the scans are performed using dose optimization techniques as appropriate to a performed exam including Automatic Exposure control.
--- NOTE | 2019-08-22 19:00 | NUR ---
NURSE NOTES: Received report from Ainsley/JORGE Florentino. Patient is awake, lying in semi hill's; resting comfortably. A/Ox4. Primarily Thai speaking. Denies pain at this time. No signs of acute distress noted. Checked IV site and flushed with ongoing heparin drip as prescribed. No erythema, bleeding or infiltration noted. Bed at lowest position, brakes on, siderailsx3. Call light within reach. Will continue to monitor.
--- NOTE | 2019-08-22 19:15 | NUR ---
HAND-OFF: Report given to JORGE Duarte. Patient is not in distress, laying on bed comfortable. Plan of care discussed.
[2019-08-22 20:00] VITALS: BP 133/77
[2019-08-22] MEDS: Hydromorphone 0.5mg/0.5ml inj IVP PRN (21:05)
--- NOTE | 2019-08-22 22:30 | NUR ---
NURSE NOTES: Patient stated, "I lived in a hotel [address] [place]" Patient could not recall the name of the hotel. Searched [facility] in the internet and [facility] [address] [facility] and [facility] who confirmed that patient currently resides there. Will endorsed to AM RN to notify youth care worker in AM. Addendum: 08/23/19 at 0518 by Felicia Menjivar RN Ordered Social service consult for homeless as per protocol.
[2019-08-23] VITALS: BP 153/90
--- NOTE | 2019-08-23 02:31 | NUR ---
NURSE NOTES: Resting throughout the night. No significant change of condition noted. Will continue to monitor.
[2019-08-23 04:00] VITALS: BP 135/75
[2019-08-23 05:51] LABS: BASOPHILS % (AUTO) 1.3 % (0.0-2.0); EOSINOPHILS % (AUTO) 3.4 % (0.0-3.0); LYMPHOCYTES % (AUTO) 30.5 % (20.0-45.0); MEAN CORPUSCULAR VOLUME 90 FL (80-99); MONOCYTES % (AUTO) 7.7 % (1.0-10.0); NEUTROPHILS % (AUTO) 57.1 % (45.0-75.0); PLATELET COUNT 157 K/UL (150-450); RED BLOOD COUNT 4.54 M/UL (4.70-6.10); RED CELL DISTRIBUTION WIDTH 12.5 % (11.6-14.8); WHITE BLOOD COUNT 7.3 K/UL (4.8-10.8)
[2019-08-23 06:04] LABS: ALANINE AMINOTRANSFERASE 190 U/L (12-78); ALBUMIN 3.1 G/DL (3.4-5.0); ALBUMIN/GLOBULIN RATIO 0.8 (1.0-2.7); ALKALINE PHOSPHATASE 69 U/L (46-116); ANION GAP 10 mmol/L (5-15); ASPARTATE AMINO TRANSFERASE 185 U/L (15-37); BILIRUBIN,TOTAL 1.5 MG/DL (0.2-1.0); BLOOD UREA NITROGEN 11 mg/dL (7-18); CALCIUM 8.4 MG/DL (8.5-10.1); CARBON DIOXIDE 29 MMOL/L (21-32); CHLORIDE 97 MMOL/L (98-107); CREATININE 0.7 MG/DL (0.55-1.30); POTASSIUM 3.1 MMOL/L (3.5-5.1); SODIUM 136 MMOL/L (136-145)
[2019-08-23 06:07] LABS: BILIRUBIN,DIRECT 0.3 MG/DL (0.0-0.3)
--- NOTE | 2019-08-23 06:24 | NUR ---
NURSE NOTES: Paged [facility] and spoke with Emani reported PTT result of 89, was told to order PTT 3/5 tomorrow 0400 and maintain current rate.
--- NOTE | 2019-08-23 07:15 | NUR ---
HAND-OFF: Report given to JORGE Torres. Plan of care endorsed.
--- NOTE | 2019-08-23 07:28 | NUR ---
NURSE NOTES: Received report from JORGE Duarte. Patient in bed resting, no active s/s cardiac, respiratory distress noticed at this time. Patient AOx4, on room air, IV on left FA 22G, left hand 22G, asymptomatic, patent, intact. IVF running as prescribed rate. Heparin drip on left FA rate of 28.195 ml/h, 14 unit/kg/hr. No s/s bleeding at this time. Bed in lowest position, side rails upx2, call light within reach. Will continue to monitor.
[2019-08-23 08:00] VITALS: BP 150/87
--- NOTE | 2019-08-23 08:26 | Cardiology Progress Note ---
Assessment/Plan Status: stable Assessment/Plan Assessment/Plan Status: stable Assessment/Plan: Assessment: Chest pain CHF acute on chronic NSVT Elevated troponin/ACS Elevated LFT Plan: Aspirin/plavix Heparin gtt 48 hours Continue coreg/losartan Statin Nitro prn Stress test prior after 48 hours heparin Ideally patient needs cardiac cath, if transfer to [facility] can be facilitated. Subjective Cardiovascular: Reports: no symptoms Respiratory: Reports: no symptoms Gastrointestinal/Abdominal: Reports: no symptoms Genitourinary: Reports: no symptoms Subjective No acute events, troponin downtrending, plan for stress test, currently no chest pain Objective Last 24 Hour Vital Signs Date Time Temp Pulse Resp B/P (MAP) Pulse Ox O2 Delivery O2 Flow Rate FiO2 08/23/19 08:00 98.1 101 18 150/87 (108) 94 08/23/19 04:00 98.2 90 18 135/75 (95) 98 08/23/19 04:00 90 08/23/19 00:00 101 08/23/19 00:00 97.7 101 20 153/90 (111) 95 08/22/19 21:35 97.9 08/22/19 21:00 Room Air 08/22/19 20:00 98 08/22/19 20:00 97.7 97 19 133/77 (95) 95 08/22/19 16:00 97.9 99 20 134/81 (98) 96 08/22/19 16:00 95 08/22/19 12:00 97.7 83 20 146/98 (114) 95 08/22/19 12:00 83 08/22/19 09:17 160/113 08/22/19 09:15 160/113 08/22/19 09:15 97 160/113 08/22/19 09:00 Room Air General Appearance: no apparent distress, alert EENT: PERRL/EOMI, normal ENT inspection, TMs normal, pharynx normal Neck: non-tender, normal alignment, supple, normal inspection, no JVD Rhythm: NSR Cardiovascular: normal peripheral pulses, normal rate, regular rhythm Respiratory/Chest: chest wall non-tender, lungs clear, normal breath sounds, no respiratory distress, no accessory muscle use Abdomen: normal bowel sounds, non tender, soft, no organomegaly, no mass Extremities: normal range of motion, non-tender, normal inspection, no calf tenderness, no swelling Neurologic: fire captain II-XII grossly normal, no motor/sensory deficits Intake and Output 08/22/19 08/23/19 19:00 07:00 Intake Total 247 ml 266 ml Balance 247 ml 266 ml Intake Oral 237 ml IV Total 10 ml 166 ml Other 100 ml # Voids 3 3 Laboratory Tests Test 08/22/19 12:05 08/22/19 22:15 08/23/19 05:38 Prothrombin Time 10.2 SEC (9.30-11.50) 10.6 SEC (9.30-11.50) Prothromb Time International Ratio 1.0 (0.9-1.1) 1.0 (0.9-1.1) Activated Partial Thromboplast Time 25 SEC (23-33) 48 SEC (23-33) H 89 SEC (23-33) H Troponin I 0.076 ng/mL (0.000-0.056) White Blood Count 7.3 K/UL (4.8-10.8) Red Blood Count 4.54 M/UL (4.70-6.10) L Hemoglobin 14.0 G/DL (14.2-18.0) L Hematocrit 41.0 % (42.0-52.0) L Mean Corpuscular Volume 90 FL (80-99) Mean Corpuscular Hemoglobin 30.7 PG (27.0-31.0) Mean Corpuscular Hemoglobin Concent 34.1 G/DL (32.0-36.0) Red Cell Distribution Width 12.5 % (11.6-14.8) Platelet Count 157 K/UL (150-450) Mean Platelet Volume 6.2 FL (6.5-10.1) L Neutrophils (%) (Auto) 57.1 % (45.0-75.0) Lymphocytes (%) (Auto) 30.5 % (20.0-45.0) Monocytes (%) (Auto) 7.7 % (1.0-10.0) Eosinophils (%) (Auto) 3.4 % (0.0-3.0) H Basophils (%) (Auto) 1.3 % (0.0-2.0) Sodium Level 136 MMOL/L (136-145) Potassium Level 3.1 MMOL/L (3.5-5.1) L Chloride Level 97 MMOL/L (98-107) L Carbon Dioxide Level 29 MMOL/L (21-32) Anion Gap 10 mmol/L (5-15) Blood Urea Nitrogen 11 mg/dL (7-18) Creatinine 0.7 MG/DL (0.55-1.30) Estimat Glomerular Filtration Rate > 60 mL/min (>60) Glucose Level 158 MG/DL (74-106) H Calcium Level 8.4 MG/DL (8.5-10.1) L Total Bilirubin 1.5 MG/DL (0.2-1.0) H Direct Bilirubin 0.3 MG/DL (0.0-0.3) Aspartate Amino Transf (AST/SGOT) 185 U/L (15-37) H Alanine Aminotransferase (ALT/SGPT) 190 U/L (12-78) H Alkaline Phosphatase 69 U/L (46-116) Total Protein 7.1 G/DL (6.4-8.2) Albumin 3.1 G/DL (3.4-5.0) L Globulin 4.0 g/dL Albumin/Globulin Ratio 0.8 (1.0-2.7) L Hepatitis A IgM Antibody Pending Hepatitis B Surface Antigen Pending Hepatitis B Core IgM Antibody Pending Hepatitis C Antibody Pending Erickson Marin MD Aug 23, 2019 08:26
[2019-08-23] MEDS ORDERED: Lexiscan 0.4mg/5ml syringe IV PRN (08:30)
[2019-08-23] MEDS: Furosemide 40mg tab ORAL SCH (08:57)
[2019-08-23] MEDS: Losartan 25mg tab ORAL SCH (08:57)
[2019-08-23] MEDS: Pantoprazole Inj IV SCH (08:58)
[2019-08-23] MEDS: Docusate 100mg cap ORAL SCH ×2 (08:58→20:51)
[2019-08-23] MEDS: Carvedilol 6.25mg Tab ORAL SCH (08:58)
[2019-08-23] MEDS: Heparin 25,000u/D5W 500ml 500 ML IV SCH (09:25)
--- NOTE | 2019-08-23 10:35 | GI Progress Note ---
Assessment/Plan Problems: (1) Elevated troponin ICD Codes: R79.89 - Other specified abnormal findings of blood chemistry SNOMED: 209260569, 441306130, 932356391 (2) Chest pain ICD Codes: R07.9 - Chest pain, unspecified SNOMED: 93804453 (3) Abnormal LFTs ICD Codes: R94.5 - Abnormal results of liver function studies SNOMED: 855901908 Status: stable, unchanged Status Narrative Discussed with Dr. Viera. Assessment/Plan Abdominal ultrasound review >> unable to visualize given patient's body habitus and overlying gas APCT reviewed >> fatty liver, nonobstructive kidney stones Transaminitis could also be elevated due to hepatic congestion given the patient has prior history of CHF Follow up hepatitis panel to rule out any chronic viral infection No plans for any GI procedures at this time given elevated troponin levels Follow-up cardiology recommendations We will consider GI procedures if needed, otherwise outpatient Repeat liver function test for tomorrow Advance diet as tolerated PPI We will follow on a daily basis with any additional recommendations The patient was seen and examined at bedside and all new and available data was reviewed in the patients chart. I agree with the above findings, impression and plan. (Patient seen earlier today. Signature stamp does not reflect patient encounter time.). - Cecilio Viera MD Subjective Gastrointestinal/Abdominal: Reports: no symptoms Objective Last 24 Hour Vital Signs Date Time Temp Pulse Resp B/P (MAP) Pulse Ox O2 Delivery O2 Flow Rate FiO2 08/23/19 08:58 101 150/87 08/23/19 08:57 150/87 08/23/19 08:00 98.1 101 18 150/87 (108) 94 08/23/19 04:00 98.2 90 18 135/75 (95) 98 08/23/19 04:00 90 08/23/19 00:00 101 08/23/19 00:00 97.7 101 20 153/90 (111) 95 08/22/19 21:35 97.9 08/22/19 21:00 Room Air 08/22/19 20:00 98 08/22/19 20:00 97.7 97 19 133/77 (95) 95 08/22/19 16:00 97.9 99 20 134/81 (98) 96 08/22/19 16:00 95 08/22/19 12:00 97.7 83 20 146/98 (114) 95 08/22/19 12:00 83 Intake and Output 08/22/19 08/23/19 19:00 07:00 Intake Total 247 ml 266 ml Balance 247 ml 266 ml Intake Oral 237 ml IV Total 10 ml 166 ml Other 100 ml # Voids 3 3 Laboratory Tests Test 08/22/19 12:05 08/22/19 22:15 08/23/19 05:38 Prothrombin Time 10.2 SEC (9.30-11.50) 10.6 SEC (9.30-11.50) Prothromb Time International Ratio 1.0 (0.9-1.1) 1.0 (0.9-1.1) Activated Partial Thromboplast Time 25 SEC (23-33) 48 SEC (23-33) H 89 SEC (23-33) H Troponin I 0.076 ng/mL (0.000-0.056) White Blood Count 7.3 K/UL (4.8-10.8) Red Blood Count 4.54 M/UL (4.70-6.10) L Hemoglobin 14.0 G/DL (14.2-18.0) L Hematocrit 41.0 % (42.0-52.0) L Mean Corpuscular Volume 90 FL (80-99) Mean Corpuscular Hemoglobin 30.7 PG (27.0-31.0) Mean Corpuscular Hemoglobin Concent 34.1 G/DL (32.0-36.0) Red Cell Distribution Width 12.5 % (11.6-14.8) Platelet Count 157 K/UL (150-450) Mean Platelet Volume 6.2 FL (6.5-10.1) L Neutrophils (%) (Auto) 57.1 % (45.0-75.0) Lymphocytes (%) (Auto) 30.5 % (20.0-45.0) Monocytes (%) (Auto) 7.7 % (1.0-10.0) Eosinophils (%) (Auto) 3.4 % (0.0-3.0) H Basophils (%) (Auto) 1.3 % (0.0-2.0) Sodium Level 136 MMOL/L (136-145) Potassium Level 3.1 MMOL/L (3.5-5.1) L Chloride Level 97 MMOL/L (98-107) L Carbon Dioxide Level 29 MMOL/L (21-32) Anion Gap 10 mmol/L (5-15) Blood Urea Nitrogen 11 mg/dL (7-18) Creatinine 0.7 MG/DL (0.55-1.30) Estimat Glomerular Filtration Rate > 60 mL/min (>60) Glucose Level 158 MG/DL (74-106) H Calcium Level 8.4 MG/DL (8.5-10.1) L Total Bilirubin 1.5 MG/DL (0.2-1.0) H Direct Bilirubin 0.3 MG/DL (0.0-0.3) Aspartate Amino Transf (AST/SGOT) 185 U/L (15-37) H Alanine Aminotransferase (ALT/SGPT) 190 U/L (12-78) H Alkaline Phosphatase 69 U/L (46-116) Total Protein 7.1 G/DL (6.4-8.2) Albumin 3.1 G/DL (3.4-5.0) L Globulin 4.0 g/dL Albumin/Globulin Ratio 0.8 (1.0-2.7) L Hepatitis A IgM Antibody Pending Hepatitis B Surface Antigen Pending Hepatitis B Core IgM Antibody Pending Hepatitis C Antibody Pending Height (Feet): 5 Height (Inches): 6.00 Weight (Pounds): 235 General Appearance: WD/WN, no apparent distress, alert Cardiovascular: normal rate Respiratory/Chest: normal breath sounds, no respiratory distress Abdominal Exam: normal bowel sounds, non tender, soft Extremities: normal range of motion, non-tender Smitha Boswell PIPE JEEPER Aug 23, 2019 10:35
[2019-08-23] MEDS: HYDROmorphone 1mg/ml Carpuject IVP PRN ×2 (10:52→18:32)
[2019-08-23 12:00] VITALS: BP 141/88
--- NOTE | 2019-08-23 12:57 | NUR ---
CARDIOLOGY I just got a consultation with Dr. Hays regarding to doing this stress test tomorrow. He requests " need new troponins and it has to be down"
--- NOTE | 2019-08-23 15:20 | NUR ---
CASE MANAGEMENT:REVIEW 08/23/19 SI: AC/CHR CHF. NSVT ACS/ELEVATED TROPONIN 98.1 101 18 150/87 94% ON RA K-3.1 CA-8.4 TBILI+1.5 AST/ALT+185/190 TROPONIN(+) 0.076 IS: HEPARIN GTT K-DUR PO QD IV PROTONIX QD COREG PO QD COZAAR PO QD LASIX PO QD IV DILAUDID Q4HRS PRN : TELEMETRY STATUS PLAN: STRESS TEST ORDERED ~ WILL BE DONE TOMORROW NEEDS TO TRANSFER FOR CARDIAC CATH ~ [facility]? LEFT VMM FOR [facility] AT [facility] REGARDING TRANSFER
--- NOTE | 2019-08-23 15:41 | NUR ---
CORRECTED INSURANCE INFO JARED LOPEZSSICA P:[phone] F: [phone] (FAX CLINICALS ALSO TO [phone])
[2019-08-23 16:00] VITALS: BP 130/76
--- NOTE | 2019-08-23 16:31 | General Progress Note ---
Assessment/Plan Problem List: (1) Metabolic acidosis ICD Codes: E87.2 - Acidosis SNOMED: 05203418, 192609406, 937405375 (2) Elevated troponin ICD Codes: R79.89 - Other specified abnormal findings of blood chemistry SNOMED: 808183465, 694287290, 714490829 (3) Chest pain ICD Codes: R07.9 - Chest pain, unspecified SNOMED: 60176200 (4) Abnormal LFTs ICD Codes: R94.5 - Abnormal results of liver function studies SNOMED: 258529982 Status: stable, unchanged Assessment/Plan: Mr. Le is a 64 year old male with hx of systolic CHF, HTN, presenting with acute onset chest pain, found to have transaminitis. #Chest pain #ACS #HTN #Chronic systolic CHF, EF 30% -Cardiology consult -heparin gtt (08/21 -) -Plan for stress test. -Continue home lasix 40 daily. -Continue home coreg 6.25 BID -Continue losartan 25 daily -TTE with EF 30%. severe LV dysfunction. #Transaminitis #Abdominal pain -GI consult placed. appreciate recs. -CT A/P unremarkable. Time spent on encounter: 36 mins, >50% on counseling and coordination of care. Time of note doesn't reflect time of encounter. Subjective Date patient seen: Aug 23, 2019 Time patient seen: 13:30 ROS Limited/Unobtainable: No Constitutional: Denies: no symptoms, chills, diaphoresis, fever, malaise, weakness, other HEENT: Denies: no symptoms, eye pain, blurred vision, tearing, double vision, ear pain, ear discharge, nose pain, nose congestion, throat pain, throat swelling, mouth pain, mouth swelling, other Cardiovascular: Reports: no symptoms, chest pain, edema, irregular heart rate, lightheadedness, palpitations, syncope, other Respiratory: Denies: no symptoms, cough, orthopnea, shortness of breath, SOB with excertion, SOB at rest, sputum, stridor, wheezing, other Gastrointestinal/Abdominal: Denies: no symptoms, abdomen distended, abdominal pain, black stools, tarry stools, blood in stool, constipated, diarrhea, difficulty swallowing, nausea, poor appetite, poor fluid intake, rectal bleeding , vomiting, other Genitourinary: Denies: no symptoms, burning, discharge, frequency, flank pain, hematuria, incontinence, pain, urgency, other Neurologic/Psychiatric: Denies: no symptoms, anxiety, depressed, emotional problems, headache, numbness, paresthesia, pre-existing deficit, seizure, tingling, tremors, weakness, other Endocrine: Denies: no symptoms, excessive sweating, flushing, intolerance to cold, intolerance to heat, increased hunger, increased thirst, increased urine, unexplained weight gain, unexplained weight loss, other Hematologic/Lymphatic: Denies: no symptoms, anemia, easy bleeding, easy bruising, other Allergies: Coded Allergies: No Known Allergies (Unverified , 08/21/19) Subjective resting in bed, wincing. still complaining of chests pain Objective Last 24 Hour Vital Signs Date Time Temp Pulse Resp B/P (MAP) Pulse Ox O2 Delivery O2 Flow Rate FiO2 08/23/19 12:00 87 08/23/19 12:00 98.1 90 18 141/88 (105) 94 08/23/19 09:00 Room Air 08/23/19 08:58 101 150/87 08/23/19 08:57 150/87 08/23/19 08:00 98.1 101 18 150/87 (108) 94 08/23/19 08:00 91 08/23/19 04:00 98.2 90 18 135/75 (95) 98 08/23/19 04:00 90 08/23/19 00:00 101 08/23/19 00:00 97.7 101 20 153/90 (111) 95 08/22/19 21:35 97.9 08/22/19 21:00 Room Air 08/22/19 20:00 98 08/22/19 20:00 97.7 97 19 133/77 (95) 95 Intake and Output 08/22/19 08/23/19 18:59 06:59 Intake Total 312 ml 248 ml Balance 312 ml 248 ml Intake Oral 237 ml IV Total 75 ml 148 ml Other 100 ml # Voids 3 3 Laboratory Tests 08/22/19 22:15: Activated Partial Thromboplast Time 48H, Troponin I 0.076H 08/23/19 05:38: Activated Partial Thromboplast Time 89H, White Blood Count 7.3, Red Blood Count 4.54L, Hemoglobin 14.0L, Hematocrit 41.0L, Mean Corpuscular Volume 90, Mean Corpuscular Hemoglobin 30.7, Mean Corpuscular Hemoglobin Concent 34.1, Red Cell Distribution Width 12.5, Platelet Count 157, Mean Platelet Volume 6.2L, Neutrophils (%) (Auto) 57.1, Lymphocytes (%) (Auto) 30.5, Monocytes (%) (Auto) 7.7, Eosinophils (%) (Auto) 3.4H, Basophils (%) (Auto) 1.3, Prothrombin Time 10.6, Prothromb Time International Ratio 1.0, Sodium Level 136, Potassium Level 3.1L, Chloride Level 97L, Carbon Dioxide Level 29, Anion Gap 10, Blood Urea Nitrogen 11, Creatinine 0.7, Estimat Glomerular Filtration Rate > 60, Glucose Level 158H, Calcium Level 8.4L, Total Bilirubin 1.5H, Direct Bilirubin 0.3, Aspartate Amino Transf (AST/SGOT) 185H, Alanine Aminotransferase (ALT/SGPT) 190H , Alkaline Phosphatase 69, Total Protein 7.1, Albumin 3.1L, Globulin 4.0, Albumin/Globulin Ratio 0.8L, Hepatitis A IgM Antibody [Pending], Hepatitis B Surface Antigen [Pending], Hepatitis B Core IgM Antibody [Pending], Hepatitis C Antibody [Pending] Height (Feet): 5 Height (Inches): 6.00 Weight (Pounds): 235 General Appearance: no apparent distress, alert Neck: supple Cardiovascular: normal rate, regular rhythm Respiratory/Chest: lungs clear, normal breath sounds Abdomen: non tender, soft Neurologic: alert, oriented x 3 Ana Paula Williamson M.D. Aug 23, 2019 16:31
--- NOTE | 2019-08-23 16:56 | NUR ---
NAPPER FIXER NOTE SW attempted to meet w/ pt to assess homelessness. However, pt was sleeping. SW will attempt later. Signed: 08/23/19 at 1656 by RASHEL LEAL <Co-Signature Required>
--- NOTE | 2019-08-23 19:16 | NUR ---
NURSE NOTES: Received patient report from JORGE Torres. Patient in bed, finished eating his dinner. Patient resting comfortably, no signs of distress or pain. IV sites checked, no signs of erythema, infiltration or bleeding. Connected to Heparin Drip. Bed in the lowest position, bed alarm on, side rails up x 2, brakes on. Will continue plan of care.
--- NOTE | 2019-08-23 19:19 | NUR ---
HAND-OFF: Report given to JORGE Becker. Endorsed plan of care.
[2019-08-23 20:00] VITALS: BP 125/78
[2019-08-24] VITALS (14 sets, daily range): BP systolic 87–134; BP diastolic 48–83
[2019-08-24 04:03] LABS: BASOPHILS % (AUTO) 0.7 % (0.0-2.0); HEMATOCRIT 39.1 % (42.0-52.0); HEMOGLOBIN 13.4 G/DL (14.2-18.0); LYMPHOCYTES % (AUTO) 18.8 % (20.0-45.0); MEAN CORPUSCULAR VOLUME 91 FL (80-99); MONOCYTES % (AUTO) 4.5 % (1.0-10.0); PLATELET COUNT 161 K/UL (150-450); RED CELL DISTRIBUTION WIDTH 12.5 % (11.6-14.8); WHITE BLOOD COUNT 12.9 K/UL (4.8-10.8)
[2019-08-24] MEDS: Heparin 25,000u/D5W 500ml 500 ML IV SCH (04:19)
[2019-08-24 04:25] LABS: ALANINE AMINOTRANSFERASE 157 U/L (12-78); ALBUMIN/GLOBULIN RATIO 0.8 (1.0-2.7); ALKALINE PHOSPHATASE 63 U/L (46-116); ANION GAP 9 mmol/L (5-15); ASPARTATE AMINO TRANSFERASE 127 U/L (15-37); BILIRUBIN,TOTAL 1.3 MG/DL (0.2-1.0); BLOOD UREA NITROGEN 23 mg/dL (7-18); CALCIUM 8.6 MG/DL (8.5-10.1); CARBON DIOXIDE 31 MMOL/L (21-32); CHLORIDE 98 MMOL/L (98-107); CREATININE 0.7 MG/DL (0.55-1.30); POTASSIUM 3.3 MMOL/L (3.5-5.1); SODIUM 138 MMOL/L (136-145)
[2019-08-24 05:13] LABS: BILIRUBIN,DIRECT 0.3 MG/DL (0.0-0.3)
[2019-08-24] MEDS ORDERED: Heparin 25,000u/D5W 500ml 500 ML IV SCH (05:30)
[2019-08-24] MEDS ORDERED: Heparin 5000 units/ml inj IV SCH (05:30)
--- NOTE | 2019-08-24 06:08 | NUR ---
NURSE NOTES: Received callback from Dr. Jimenez. No new orders received at this time. Addendum: 08/24/19 at 0609 by BHUPENDRA MCFADDEN RN RN *phuong DOMINGUEZ for Dr. Bravo
--- NOTE | 2019-08-24 06:56 | NUR ---
NURSE NOTES: Per Bennie from Cardiology department, Dr. Hays is requesting for additional Troponin lab order since he might not perform stress test procedure if patient's Troponin level does not come down. Noted and carried out.
--- NOTE | 2019-08-24 07:28 | NUR ---
HAND-OFF: Report given to JORGE Majano. Patient in bed sleeping. No signs of distress or pain noted at this time. Plan of care endorsed.
--- NOTE | 2019-08-24 08:10 | Cardiology Progress Note ---
Assessment/Plan Status: stable Assessment/Plan Assessment/Plan Status: stable Assessment/Plan: Assessment: Chest pain CHF acute on chronic NSVT Elevated troponin/ACS Elevated LFT Plan: Aspirin/plavix Heparin gtt 48 hours Continue coreg/losartan Statin Nitro prn Stress test prior after 48 hours heparin Ideally patient needs cardiac cath, if transfer to [facility] can be facilitated. Subjective Cardiovascular: Reports: no symptoms Respiratory: Reports: no symptoms Gastrointestinal/Abdominal: Reports: no symptoms Genitourinary: Reports: no symptoms Subjective No acute events, troponin downtrending, plan for stress test, currently no chest pain Objective Last 24 Hour Vital Signs Date Time Temp Pulse Resp B/P (MAP) Pulse Ox O2 Delivery O2 Flow Rate FiO2 08/24/19 04:00 95.9 104 18 127/83 (98) 96 08/24/19 04:00 106 08/24/19 00:00 97.9 90 18 130/70 (90) 95 08/24/19 00:00 96 08/23/19 21:00 Room Air 08/23/19 20:00 82 08/23/19 20:00 96.6 93 18 125/78 (94) 96 08/23/19 16:00 90 08/23/19 16:00 97.5 87 18 130/76 (94) 95 08/23/19 12:00 87 08/23/19 12:00 98.1 90 18 141/88 (105) 94 08/23/19 09:00 Room Air 08/23/19 08:58 101 150/87 08/23/19 08:57 150/87 General Appearance: no apparent distress, alert EENT: PERRL/EOMI, normal ENT inspection, TMs normal, pharynx normal Neck: non-tender, normal alignment, supple, normal inspection, no JVD Rhythm: NSR Cardiovascular: normal peripheral pulses, normal rate, regular rhythm, no gallop/murmur Respiratory/Chest: chest wall non-tender, lungs clear, normal breath sounds Abdomen: normal bowel sounds, non tender, soft, no organomegaly, no mass Extremities: non-tender, normal inspection Neurologic: baby attendant II-XII grossly normal, no motor/sensory deficits Intake and Output 08/23/19 08/24/19 19:00 07:00 Intake Total 518.195 ml 320.281 ml Balance 518.195 ml 320.281 ml Intake Oral 490 ml IV Total 28.195 ml 320.281 ml # Voids 1 3 Laboratory Tests Test 08/24/19 03:56 White Blood Count 12.9 K/UL (4.8-10.8) #H Red Blood Count 4.30 M/UL (4.70-6.10) L Hemoglobin 13.4 G/DL (14.2-18.0) L Hematocrit 39.1 % (42.0-52.0) L Mean Corpuscular Volume 91 FL (80-99) Mean Corpuscular Hemoglobin 31.1 PG (27.0-31.0) H Mean Corpuscular Hemoglobin Concent 34.2 G/DL (32.0-36.0) Red Cell Distribution Width 12.5 % (11.6-14.8) Platelet Count 161 K/UL (150-450) Mean Platelet Volume 6.4 FL (6.5-10.1) L Neutrophils (%) (Auto) 74.0 % (45.0-75.0) Lymphocytes (%) (Auto) 18.8 % (20.0-45.0) L Monocytes (%) (Auto) 4.5 % (1.0-10.0) Eosinophils (%) (Auto) 2.0 % (0.0-3.0) Basophils (%) (Auto) 0.7 % (0.0-2.0) Prothrombin Time 10.5 SEC (9.30-11.50) Prothromb Time International Ratio 1.0 (0.9-1.1) Activated Partial Thromboplast Time 51 SEC (23-33) H Sodium Level 138 MMOL/L (136-145) Potassium Level 3.3 MMOL/L (3.5-5.1) L Chloride Level 98 MMOL/L (98-107) Carbon Dioxide Level 31 MMOL/L (21-32) Anion Gap 9 mmol/L (5-15) Blood Urea Nitrogen 23 mg/dL (7-18) H Creatinine 0.7 MG/DL (0.55-1.30) Estimat Glomerular Filtration Rate > 60 mL/min (>60) Glucose Level 147 MG/DL (74-106) H Calcium Level 8.6 MG/DL (8.5-10.1) Total Bilirubin 1.3 MG/DL (0.2-1.0) H Direct Bilirubin 0.3 MG/DL (0.0-0.3) Aspartate Amino Transf (AST/SGOT) 127 U/L (15-37) H Alanine Aminotransferase (ALT/SGPT) 157 U/L (12-78) H Alkaline Phosphatase 63 U/L (46-116) Troponin I 0.045 ng/mL (0.000-0.056) Total Protein 7.0 G/DL (6.4-8.2) Albumin 3.0 G/DL (3.4-5.0) L Globulin 4.0 g/dL Albumin/Globulin Ratio 0.8 (1.0-2.7) L Microbiology Date/Time Source Procedure Growth Status 08/21/19 20:00 Rectum - Final NO CARBAPENEM-RESISTANT ENTEROBACTERI... Complete 08/21/19 20:00 Rectum VRE Culture - Final NO VANCOMYCIN RESISTANT ENTEROCOCCUS ... Complete Erickson Marin MD Aug 24, 2019 08:10
[2019-08-24] MEDS: Furosemide 40mg tab ORAL SCH ×2 (08:55→09:00)
[2019-08-24] MEDS: Pantoprazole Inj IV SCH (08:56)
[2019-08-24] MEDS: Losartan 25mg tab ORAL SCH (09:00)
[2019-08-24] MEDS: Carvedilol 6.25mg Tab ORAL SCH (09:00)
[2019-08-24] MEDS: Docusate 100mg cap ORAL SCH ×2 (09:04→21:00)
--- NOTE | 2019-08-24 09:25 | NUR ---
Upon arrival to Nuclear Medicine department, pt had episode of hematemesis. fish and game warden Linda notified. Pt returned to unit without completing Myocardial Perfusion Scan.
[2019-08-24] MEDS ORDERED: Pantoprazole 80 MG in NS 250 ML IV SCH ×6 (10:00→22:00)
--- NOTE | 2019-08-24 10:04 | NUR ---
*-* INSURANCE *-* ALL CLINICALS HAVE BEEN FAXED TO: JARED FOX KAILA P:[phone] F: [phone] (FAX CLINICALS ALSO TO [phone]) Addendum: 08/24/19 at 1130 by CHAD GONZALEZ CM ALSO FAXED TO: ARIANNE [phone]
[2019-08-24 10:14] LABS: BASOPHILS % (AUTO) 0.8 % (0.0-2.0); EOSINOPHILS % (AUTO) 1.7 % (0.0-3.0); HEMATOCRIT 38.4 % (42.0-52.0); HEMOGLOBIN 13.1 G/DL (14.2-18.0); MEAN CORPUSCULAR VOLUME 92 FL (80-99); MONOCYTES % (AUTO) 5.8 % (1.0-10.0); NEUTROPHILS % (AUTO) 68.8 % (45.0-75.0); PLATELET COUNT 181 K/UL (150-450); RED BLOOD COUNT 4.17 M/UL (4.70-6.10); RED CELL DISTRIBUTION WIDTH 12.5 % (11.6-14.8)
--- NOTE | 2019-08-24 10:57 | General Progress Note ---
Assessment/Plan Problem List: (1) Metabolic acidosis ICD Codes: E87.2 - Acidosis SNOMED: 14259057, 065731093, 429456625 (2) Elevated troponin ICD Codes: R79.89 - Other specified abnormal findings of blood chemistry SNOMED: 983461691, 063515988, 872911894 (3) Chest pain ICD Codes: R07.9 - Chest pain, unspecified SNOMED: 62705938 (4) Abnormal LFTs ICD Codes: R94.5 - Abnormal results of liver function studies SNOMED: 652490932 (5) Hematemesis ICD Codes: K92.0 - Hematemesis SNOMED: 1317979 Status: deteriorating Assessment/Plan: Mr. Le is a 64 year old male with hx of systolic CHF, HTN, presenting with acute onset chest pain, found to have transaminitis. #Chest pain #ACS #HTN #Chronic systolic CHF, EF 30% -Cardiology consult -s/p heparin gtt x 48 hrs (08/21-08/23) -Plan for stress test today. -d/c Lasix for hematemesis and NPO. -Continue home coreg 6.25 BID -Continue losartan 25 daily -TTE with EF 30%. severe LV dysfunction. #Hematemesis #GIB -New on AM of 08/23. -Start protonix gtt (08/23 -) -Start NS at 100 mL/hr -Recheck CBC this AM. No significant drop overnight. -GI notified. #Transaminitis #Abdominal pain -GI consult placed. appreciate recs. -CT A/P unremarkable. Time spent on encounter: 35 mins, >50% on counseling and coordination of care. Time of note doesn't reflect time of encounter. Subjective Date patient seen: Aug 24, 2019 Time patient seen: 10:30 Constitutional: Denies: no symptoms, chills, diaphoresis, fever, malaise, weakness, other HEENT: Denies: no symptoms, eye pain, blurred vision, tearing, double vision, ear pain, ear discharge, nose pain, nose congestion, throat pain, throat swelling, mouth pain, mouth swelling, other Cardiovascular: Denies: no symptoms, chest pain, edema, irregular heart rate, lightheadedness, palpitations, syncope, other Respiratory: Denies: no symptoms, cough, orthopnea, shortness of breath, SOB with excertion, SOB at rest, sputum, stridor, wheezing, other Gastrointestinal/Abdominal: Reports: no symptoms, abdomen distended, abdominal pain, black stools, tarry stools, blood in stool, constipated, diarrhea, difficulty swallowing, nausea, poor appetite, poor fluid intake, rectal bleeding , vomiting, other Genitourinary: Denies: no symptoms, burning, discharge, frequency, flank pain, hematuria, incontinence, pain, urgency, other Neurologic/Psychiatric: Denies: no symptoms, anxiety, depressed, emotional problems, headache, numbness, paresthesia, pre-existing deficit, seizure, tingling, tremors, weakness, other Endocrine: Denies: no symptoms, excessive sweating, flushing, intolerance to cold, intolerance to heat, increased hunger, increased thirst, increased urine, unexplained weight gain, unexplained weight loss, other Hematologic/Lymphatic: Denies: no symptoms, anemia, easy bleeding, easy bruising, other Allergies: Coded Allergies: No Known Allergies (Unverified , 08/21/19) Subjective complaining of thirst, wants to drink. has been npo for a long time. -vomited blood this AM, stress test delayed. Objective Last 24 Hour Vital Signs Date Time Temp Pulse Resp B/P (MAP) Pulse Ox O2 Delivery O2 Flow Rate FiO2 08/24/19 09:00 Room Air 08/24/19 09:00 134/58 08/24/19 09:00 128 134/58 08/24/19 08:00 128 08/24/19 08:00 97.7 65 20 134/58 (83) 96 08/24/19 04:00 95.9 104 18 127/83 (98) 96 08/24/19 04:00 106 08/24/19 00:00 97.9 90 18 130/70 (90) 95 08/24/19 00:00 96 08/23/19 21:00 Room Air 08/23/19 20:00 82 08/23/19 20:00 96.6 93 18 125/78 (94) 96 08/23/19 16:00 90 08/23/19 16:00 97.5 87 18 130/76 (94) 95 08/23/19 12:00 87 08/23/19 12:00 98.1 90 18 141/88 (105) 94 Intake and Output 08/23/19 08/24/19 19:00 07:00 Intake Total 518.195 ml 320.281 ml Balance 518.195 ml 320.281 ml Intake Oral 490 ml IV Total 28.195 ml 320.281 ml # Voids 1 3 Laboratory Tests 08/24/19 03:56: White Blood Count 12.9#H, Red Blood Count 4.30L, Hemoglobin 13.4L, Hematocrit 39.1L, Mean Corpuscular Volume 91, Mean Corpuscular Hemoglobin 31.1H, Mean Corpuscular Hemoglobin Concent 34.2, Red Cell Distribution Width 12.5, Platelet Count 161, Mean Platelet Volume 6.4L, Neutrophils (%) (Auto) 74.0, Lymphocytes ( %) (Auto) 18.8L, Monocytes (%) (Auto) 4.5, Eosinophils (%) (Auto) 2.0, Basophils (%) (Auto) 0.7, Prothrombin Time 10.5, Prothromb Time International Ratio 1.0, Activated Partial Thromboplast Time 51H, Sodium Level 138, Potassium Level 3.3L, Chloride Level 98, Carbon Dioxide Level 31, Anion Gap 9, Blood Urea Nitrogen 23H, Creatinine 0.7, Estimat Glomerular Filtration Rate > 60, Glucose Level 147H, Calcium Level 8.6, Total Bilirubin 1.3H, Direct Bilirubin 0.3, Aspartate Amino Transf (AST/SGOT) 127H, Alanine Aminotransferase (ALT/SGPT) 157H , Alkaline Phosphatase 63, Troponin I 0.045, Total Protein 7.0, Albumin 3.0L, Globulin 4.0, Albumin/Globulin Ratio 0.8L 08/24/19 08:30: White Blood Count 15.0H, Red Blood Count 4.17L, Hemoglobin 13.1L, Hematocrit 38.4L, Mean Corpuscular Volume 92, Mean Corpuscular Hemoglobin 31.4H, Mean Corpuscular Hemoglobin Concent 34.1, Red Cell Distribution Width 12.5, Platelet Count 181, Mean Platelet Volume 6.4L, Neutrophils (%) (Auto) 68.8, Lymphocytes ( %) (Auto) 23.0, Monocytes (%) (Auto) 5.8, Eosinophils (%) (Auto) 1.7, Basophils (%) (Auto) 0.8, Troponin I 0.030 Height (Feet): 5 Height (Inches): 6.00 Weight (Pounds): 235 General Appearance: no apparent distress, alert Neck: supple Cardiovascular: normal rate, regular rhythm Respiratory/Chest: lungs clear, normal breath sounds Abdomen: non tender, soft Ana Paula Williamson M.D. Aug 24, 2019 10:57
--- NOTE | 2019-08-24 11:21 | NUR ---
patient vomited 150 ml fresh blood>>>>>> MADE AWARE>>> HEP DRIP D/C ORDERED, STRESS TEST PENDING GI CLEARANCE PATIENT CONTINUE TO BE NPO , STARTED IV FLUID NS 100 ML / HR ORDERED. WILL CONTINUE TO MONITOR.
--- NOTE | 2019-08-24 12:16 | Pre-Procedure Note/Attestation ---
Pre-Procedure Note/Attestation Complete Prior to Procedure Planned Procedure: not applicable Procedure Narrative: egd Indications for Procedure Pre-Operative Diagnosis: gib Attestation I attest that I discussed the nature of the procedure; its benefits; risks and complications; and alternatives (and the risks and benefits of such alternatives ), prior to the procedure, with the patient (or the patient's legal retail account representative). I attest that, if there was a reasonable possibility of needing a blood transfusion, the patient (or the patient's legal retail account representative) was given the [facility] standardized written summary, pursuant to the Bennie Phyllis Blood Safety Act ([place] Health and Safety Code # 1645, as amended). I attest that I re-evaluated the patient just prior to the surgery and that there has been no change in the patient's H&P, except as documented below: Cecilio Viera MD Aug 24, 2019 12:16
--- NOTE | 2019-08-24 12:22 | Anethesia Preoperative Eval ---
Anesthesia Pre-op PMH/ROS General Date of Evaluation: Aug 24, 2019 Anesthesiologist: Ken ASA Score: ASA 4 - E Mallampati Score Class I : Soft palate, uvula, fauces, pillars visible Class II: Soft palate, uvula, fauces visible Class III: Soft palate, base of uvula visible Class IV: Only hard plate visible Mallampati Classification: Class III Surgeon: Maximiliano Diagnosis: HEmatemesis Surgical Procedure: EGD Anesthesia History: none Family History: no anesthesia problems Allergies: Coded Allergies: No Known Allergies (Unverified , 08/21/19) Medications: see eMAR Patient NPO?: Yes NPO Date: Aug 24, 2019 NPO Time: 00:00 Past Medical History Cardiovascular: Reports: HTN, MO - h/o MO in 2011; presented with elevasted troponins, now downtrending; no current chest pain or sob, other - CHF-acute on chronic, s/p pacemaker vs aicd placement on 07/24/19-patient unsure; Denies: CAD, valve dz, arrhythmia Pulmonary: Denies: asthma, COPD, CURT, other Gastrointestinal/Genitourinary: Denies: GERD, CRI, ESRD, other Neurologic/Psychiatric: Denies: dementia, CVA, depression/anxiety, TIA, other Endocrine: Reports: DM; Denies: hypothyroidism, steroids, other HEENT: Denies: cataract (L), cataract (R), glaucoma, [facility] (L), [facility] (R), other Hematology/Immune: Denies: anemia, DVT, bleeding disorder, other Musculoskeletal/Integumentary: Denies: OA, RA, DJD, DDD, edema, other Other: obesity PSxH Narrative: Denies Anesthesia Pre-op Phys. Exam Physician Exam Last Vital Signs Date Time Temp Pulse Resp B/P (MAP) Pulse Ox O2 Delivery O2 Flow Rate FiO2 08/24/19 09:00 Room Air 08/24/19 09:00 134/58 08/24/19 09:00 128 08/24/19 08:00 97.7 20 96 Constitutional: NAD Cardiovascular: RRR Respiratory: CTA Airway Exam Mallampati Score: Class III MO: limited ROM: limited Anesthesia Pre-op A/P Labs Hematology Test 08/24/19 03:56 08/24/19 08:30 White Blood Count 12.9 K/UL (4.8-10.8) #H 15.0 K/UL (4.8-10.8) H Red Blood Count 4.30 M/UL (4.70-6.10) L 4.17 M/UL (4.70-6.10) L Hemoglobin 13.4 G/DL (14.2-18.0) L 13.1 G/DL (14.2-18.0) L Hematocrit 39.1 % (42.0-52.0) L 38.4 % (42.0-52.0) L Mean Corpuscular Volume 91 FL (80-99) 92 FL (80-99) Mean Corpuscular Hemoglobin 31.1 PG (27.0-31.0) H 31.4 PG (27.0-31.0) H Mean Corpuscular Hemoglobin Concent 34.2 G/DL (32.0-36.0) 34.1 G/DL (32.0-36.0) Red Cell Distribution Width 12.5 % (11.6-14.8) 12.5 % (11.6-14.8) Platelet Count 161 K/UL (150-450) 181 K/UL (150-450) Mean Platelet Volume 6.4 FL (6.5-10.1) L 6.4 FL (6.5-10.1) L Neutrophils (%) (Auto) 74.0 % (45.0-75.0) 68.8 % (45.0-75.0) Lymphocytes (%) (Auto) 18.8 % (20.0-45.0) L 23.0 % (20.0-45.0) Monocytes (%) (Auto) 4.5 % (1.0-10.0) 5.8 % (1.0-10.0) Eosinophils (%) (Auto) 2.0 % (0.0-3.0) 1.7 % (0.0-3.0) Basophils (%) (Auto) 0.7 % (0.0-2.0) 0.8 % (0.0-2.0) Coagulation Test 08/24/19 03:56 Prothrombin Time 10.5 SEC (9.30-11.50) Prothromb Time International Ratio 1.0 (0.9-1.1) Activated Partial Thromboplast Time 51 SEC (23-33) H Chemistry Test 08/24/19 03:56 08/24/19 08:30 Sodium Level 138 MMOL/L (136-145) Potassium Level 3.3 MMOL/L (3.5-5.1) L Chloride Level 98 MMOL/L (98-107) Carbon Dioxide Level 31 MMOL/L (21-32) Anion Gap 9 mmol/L (5-15) Blood Urea Nitrogen 23 mg/dL (7-18) H Creatinine 0.7 MG/DL (0.55-1.30) Estimat Glomerular Filtration Rate > 60 mL/min (>60) Glucose Level 147 MG/DL (74-106) H Calcium Level 8.6 MG/DL (8.5-10.1) Total Bilirubin 1.3 MG/DL (0.2-1.0) H Direct Bilirubin 0.3 MG/DL (0.0-0.3) Aspartate Amino Transf (AST/SGOT) 127 U/L (15-37) H Alanine Aminotransferase (ALT/SGPT) 157 U/L (12-78) H Alkaline Phosphatase 63 U/L (46-116) Troponin I 0.045 ng/mL (0.000-0.056) 0.030 ng/mL (0.000-0.056) Total Protein 7.0 G/DL (6.4-8.2) Albumin 3.0 G/DL (3.4-5.0) L Globulin 4.0 g/dL Albumin/Globulin Ratio 0.8 (1.0-2.7) L Studies Pre-op Studies: echo - EF 30%, severe left ventricular dysfunction Risk Assessment & Plan Assessment: ASA GENA Plan: MAC Status Change Before Surgery: No Pre-Antibiotics Drug: N/A Cornelia Gannon MD Aug 24, 2019 12:22
[2019-08-24] MEDS ORDERED: LR 1000ml 1,000 ML IVLG SCH (12:24)
[2019-08-24] MEDS ORDERED: LR 1000ml ONE (12:30)
[2019-08-24] MEDS ORDERED: Propofol 200mg/20ml IV ONE (12:30)
[2019-08-24] MEDS ORDERED: Lidocaine 1% MPF 10mg/ml 5ml ONE (12:30)
[2019-08-24] MEDS ORDERED: DiphenhydrAMINE 50mg/ml Inj IVP PRN (12:30)
[2019-08-24] MEDS ORDERED: NS 500ML IVPB ONE (12:35)
--- NOTE | 2019-08-24 13:01 | Endoscopy Procedure Note ---
Endoscopy Procedure Note General Indication for Procedure: gib Procedures Performed: EGD Operative Findings/Diagnosis: MVT Specimen: none Pt Tolerated Procedure Well: Yes Estimated Blood Loss: none Anesthesia Anesthesiologist: dangelo Anesthesia: MAC Inserted Devices Implant(s) used?: No GI Core Measures 50 yrs or older w/o bx or poly: Not Applicable 10yrs. F/U recommended: Not Applicable Cecilio Viera MD Aug 24, 2019 13:01
--- NOTE | 2019-08-24 13:10 | Immediate Post-Op Evaluation ---
Immediate Post-Op Evalulation Immediate Post-Op Evalulation Procedure: EGD Date of Evaluation: Aug 24, 2019 Time of Evaluation: 13:12 IV Fluids: 300 Blood Products: 0 Estimated Blood Loss: 0 Urinary Output: 0 Blood Pressure Systolic: 101 Blood Pressure Diastolic: 67 Pulse Rate: 111 Respiratory Rate: 18 O2 Sat by Pulse Oximetry: 100 Temperature (Fahrenheit): 97.2 Pain Score (1-10): 0 Nausea: No Vomiting: No Complications 0 Patient Status: awake, reacts, patent, none Hydration Status: adequate Drug: N/A Cornelia Gannon MD Aug 24, 2019 13:10
--- NOTE | 2019-08-24 13:11 | 48 Hour Post Anesthesia Eval ---
Post Anesthesia Evaluation Procedure: EGD Date of Evaluation: Aug 24, 2019 Airway: patent Nausea: No Vomiting: No Pain Intensity: 0 Hydration Status: adequate Cardiopulmonary Status: at baseline Mental Status/LOC: patient returned to baseline Post-Anesthesia Complications: 0 Follow-up care needed: N/A - further care as per primary team Cornelia Gannon MD Aug 24, 2019 13:11
--- NOTE | 2019-08-24 13:30 | NUR ---
NURSE NOTES: LATE ENTRY: RECEIVED REPORT FROM FARSHAD Gregoyr WENT DOWN TO GI LAB FOR EGD. PT TRANSFERRED TO ICU FOR ACTIVE GI BLEEDING. VS ON MONITOR HR 111, BP 89/53, RR 22, 02SAT 100% ON ROOM AIR. A/OX2. ELIZABETH. LUNGS CLEAR, ABDOMEN DISTENDED, BOWEL SOUNDS HYPOACTIVE. NO BM AT THIS TIME. URINAL AT BEDSIDE. BILATERAL UPPER AND LOWER PULSES WEAK. IV ACCESS LT HAND 22G, LT FA 22G LEAKING AND RT 20G. RUNNING NS AT 75ML/HR. NPO. SKIN INTACT. CALL LIGHT IN REACH, BED ALARM ON. SIDE RAIL X 2. EDUCATION ON PLAN OF CARE. WILL CONTINUE TO MONITOR.
--- NOTE | 2019-08-24 13:59 | NUR ---
CASE MANAGEMENT:REVIEW 08/24/19 SI: AC/CHR CHF. NSVT ACS/ELEVATED TROPONIN 97.7 65 20 134/58 96% ON RA WBC+15.0 K-3.3 BUN+23 AST/ALT+127/157 IS: HEPARIN GTT K-DUR PO QD IV PROTONIX QD COREG PO QD COZAAR PO QD LASIX PO QD IV DILAUDID Q4HRS PRN : TELEMETRY STATUS SI: LARGE EMESIS OF BRIGHT RED BLOOD IS: TRANSFERRED TO ICU PROTONIX GTT TO GI LAB FOR STAT EGD : ICU STATUS
[2019-08-24] MEDS ORDERED: Nitroglycerin Subl 0.4mg tab SL PRN (14:00)
[2019-08-24] MEDS ORDERED: Lexiscan 0.4mg/5ml syringe IV PRN (14:00)
[2019-08-24] MEDS ORDERED: LORazepam Inj 2mg/ml 1ml IV PRN (14:15)
[2019-08-24] MEDS ORDERED: DiphenhydrAMINE 25mg Tab ORAL PRN (14:15)
--- NOTE | 2019-08-24 14:23 | NUR ---
NURSE NOTES: zofran ivp given. pt vomiting blood and sputum. abdomen discomfort 09/28.
[2019-08-24] MEDS ORDERED: Hydromorphone 0.5mg/0.5ml inj IVP PRN (15:00)
[2019-08-24] MEDS ORDERED: HYDROmorphone 1mg/ml Carpuject IVP PRN (15:00)
[2019-08-24] MEDS: Metoclopramide 10mg/2ml Inj IVP SCH ×2 (15:15→21:04)
--- NOTE | 2019-08-24 16:00 | NUR ---
NURSE NOTES: LATE ENTRY: VS ON MONITOR HR 108, BP 100/48, RR 17, 02SAT 97% ON ROOM AIR. A/OX2. ELIZABETH. LUNGS CLEAR, ABDOMEN DISTENDED, BOWEL SOUNDS HYPOACTIVE. NO BM AT THIS TIME. IV ACCESS LT HAND 22G AND RT 20G. RUNNING NS AT 75ML/HR. NPO. SKIN INTACT. CALL LIGHT IN REACH, BED ALARM ON. SIDE RAIL X 2. WILL CONTINUE TO MONITOR.
--- NOTE | 2019-08-24 17:10 | NUR ---
ORACLE SECURITY CONSULTANT NOTE Pt is transferred to ICU on 08/24/2019. [employer]VIS and [employer] #[id number] spoke w/ pt and assessed pt's needs. Pt has been homeless and was staying at [place] [id number] Room[address]. 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 Pt receives no income at this time. PT is and has two adult children living in [place]. Pt does not have any friends/family members in [place] There is no emergency contact provided. Pt has no POA/AD/POLST. Pt is expressing full code. Pt spoke w/ Marva Christopher, social staff worker at [facility] [phone]. There is a 3 days bed hold at the [facility]. Marva will try to hold his bed and will notify ELVIS if she fails to do so. ELVIS will continue to F/U. Signed: 08/24/19 at 1716 by RASHEL LEAL <Co-Signature Required>
--- NOTE | 2019-08-24 17:15 | Procedure Note ---
DATE OF PROCEDURE: 08/24/2019 SURGEON: Cecilio Viera M.D. PROCEDURE: Upper endoscopy with hemostasis. ANESTHESIA: Per Dr. Rogers. INSTRUMENT: Olympus adult flexible upper endoscope. INDICATION: Upper GI bleeding. REASON FOR PROCEDURE: The procedure, risks, benefits, and possible consequences, including hemorrhage, aspiration, perforation and infection, and alternative treatments, were explained to the patient/legal guardian by Dr. Cecilio Viera and the patient/legal guardian understood and accepted these risks. DESCRIPTION OF PROCEDURE: After informed consent was obtained and the patient was adequately sedated, Olympus upper endoscope was advanced from mouth into the second portion of the duodenum and retroflexion was performed in the stomach. The patient had active upper GI bleeding, most probably from a Maame-Pepe tear at the GE junction with a blood clot sitting at the GE junction. There was also blood clot throughout the stomach and duodenum, but this seems to have started from the GE junction. We injected that area with 4 mL of 1:10,000 dilution epinephrine. We decided not to do hemoclip or cauterization given there was a clot and actually the bleeding was little bit under control with a clot sitting on it. The patient tolerated the procedure well without complication. SUMMARY OF FINDINGS: Upper GI bleeding, most probably from a Maame-Pepe tear. RECOMMENDATIONS: Status post hemostasis with 4 mL of epinephrine injection. the patient to be admitted to ICU. Protonix drip. Monitor hemoglobin and hematocrit. Transfuse as needed to keep hemoglobin above 7. Consider re-endoscopy if the patient shows signs and symptoms of re-bleeding. I want to thank Dr. Bravo for this kind referral. Cecilio Viera M.D. DR: PETAR JOB#: [id number] CC: Melina Bravo M.D.; Fax#: [phone]
--- NOTE | 2019-08-24 19:30 | NUR ---
NURSE NOTES: patient in bed awake,alert able to verbalize needs to staff. On 2L oxygen via N/C satting 100%. HOB elevated. Denies any pain or discomfort. Abdomen large and distended. no s/s of hypo/hyperglycemia. IV intact infusing NS at 100cc/hr. Instructed patient to use call light for assistance. bed alarm on. bed locked and in low position. will continue plan of care.
--- NOTE | 2019-08-24 19:34 | NUR ---
HAND-OFF: Report given to EUGENIE Gregory PT IN NO ACUTE DISTRESS
--- NOTE | 2019-08-24 21:30 | NUR ---
NURSE NOTES: Patient uses bedside commode with x1 dark medium soft BM, with x 1 urinate with dark segun urine. Offered pt to get clean but per patient he can clean himself. NPO at this time. Frequent visual checks continued. No s/s of acute distress noted. Encouraged patient to verbalize needs,fears and feelings to staff. call light within easy reach.
[2019-08-24] MEDS: Pantoprazole 80 MG in NS 250 ML IV SCH (22:09)
--- NOTE | 2019-08-24 23:30 | NUR ---
NURSE NOTES: patient in bed sleeping comfortably. no s/s of acute distress noted. no moaning no facial grimaces. frequent visual checks continued. no fever. no n/v. no diarrhea.will continued plan of care.
[2019-08-25] VITALS (15 sets, daily range): BP systolic 78–133; BP diastolic 45–80
--- NOTE | 2019-08-25 01:30 | NUR ---
NURSE NOTES: patient in bed sleeping comfortably. no s/s of acute distress noted. no moaning no facial grimaces. pt able to turned and repositioned in bed. left lower leg with hyperpigmentation brownish skin. frequent visual checks continued. no fever. no n/v. no diarrhea.will continued plan of care
[2019-08-25] MEDS: Metoclopramide 10mg/2ml Inj IVP SCH ×4 (03:10→20:39)
--- NOTE | 2019-08-25 03:30 | NUR ---
NURSE NOTES: Patient in bed sleeping comfortably. no s/s of acute distress noted. On 2L oxygen via N/C satting 100%. no moaning no facial grimaces. pt able to turned and repositioned in bed. left lower leg with hyperpigmentation brownish skin. frequent visual checks continued. no fever. no n/v. no diarrhea. will continued plan of care
[2019-08-25 05:28] LABS: BASOPHILS % (AUTO) 0.8 % (0.0-2.0); EOSINOPHILS % (AUTO) 0.8 % (0.0-3.0); HEMATOCRIT 31.4 % (42.0-52.0); HEMOGLOBIN 10.7 G/DL (14.2-18.0); LYMPHOCYTES % (AUTO) 27.5 % (20.0-45.0); MEAN CORPUSCULAR VOLUME 93 FL (80-99); MONOCYTES % (AUTO) 6.8 % (1.0-10.0); NEUTROPHILS % (AUTO) 64.2 % (45.0-75.0); PLATELET COUNT 139 K/UL (150-450); RED BLOOD COUNT 3.38 M/UL (4.70-6.10); WHITE BLOOD COUNT 9.5 K/UL (4.8-10.8)
--- NOTE | 2019-08-25 05:30 | NUR ---
NURSE NOTES: Patient in bed sleeping comfortably. no s/s of acute distress noted. On 2L oxygen via N/C satting 100%. NPO. On Protonix drip 25cc/hr.No complain of pain or discomfort. no hematuria noted. pt able to turned and repositioned in bed. frequent visual checks continued. no fever. no n/v. no diarrhea. will continued plan of care.
--- NOTE | 2019-08-25 07:23 | NUR ---
HAND-OFF: Report given to Roberto PATEL.
--- NOTE | 2019-08-25 07:25 | NUR ---
NURSE NOTES: Report received from Kyra Dean RN.Pt awake,awake alert resting quietly in bed noted no resp distress denies any pain or vomiting ,SR on the monitor, kept NPO but can have ice chips ,skin warm and dry IV sites x2 intact Lt hand and RH with Protonix 40 mg IV drip at 25ml/hr,and NS at 100 ml/hr,SR up x2 HOB elevated,bed lock in lowest position,will continue with plans of care.
[2019-08-25] MEDS ORDERED: Carvedilol 6.25mg Tab ORAL SCH (09:00)
[2019-08-25] MEDS ORDERED: Losartan 25mg tab ORAL SCH (09:00)
[2019-08-25] MEDS: Pantoprazole 80 MG in NS 250 ML IV SCH (09:01)
[2019-08-25] MEDS: Docusate 100mg cap ORAL SCH ×2 (09:02→20:39)
--- NOTE | 2019-08-25 09:30 | NUR ---
NURSE NOTES: verbalized feeling hungry,pt is NPO except ice chips and medic.Pt given ice chips until further order.
--- NOTE | 2019-08-25 10:21 | Diagnostic Imaging Report ---
Indication: Leg pain and shortness of breath Technique: Grayscale and duplex images of the bilateral lower extremity veins Comparison: None Findings: Bilaterally, grayscale and duplex images demonstrate no evidence of intraluminal thrombus. Normal phasic Doppler waveforms, demonstrating normal augmentation response and no evidence of valvular insufficiency. Greater saphenous vein(s) and tibial veins are patent. Normal compressibility. Impression: Negative for evidence of lower extremity deep venous thrombosis bilaterally
--- NOTE | 2019-08-25 11:24 | NUR ---
*-* INSURANCE *-* ALL CLINICALS HAVE BEEN [facility] P:[phone] F: [phone] (FAX CLINICALS HERE AND TO [phone])
--- NOTE | 2019-08-25 12:00 | NUR ---
NURSE NOTES: Dunia Mccarthyat bedside,updated re pt's status,will continue to monitor pt.
--- NOTE | 2019-08-25 12:07 | General Progress Note ---
Assessment/Plan Problem List: (1) Hematemesis ICD Codes: K92.0 - Hematemesis SNOMED: 8604729 (2) Abnormal LFTs ICD Codes: R94.5 - Abnormal results of liver function studies SNOMED: 189693324 (3) Chest pain ICD Codes: R07.9 - Chest pain, unspecified SNOMED: 49868009 (4) Elevated troponin ICD Codes: R79.89 - Other specified abnormal findings of blood chemistry SNOMED: 634888052, 045486128, 773097110 (5) Diverticulosis ICD Codes: K57.90 - Diverticulosis of intestine, part unspecified, without perforation or abscess without bleeding SNOMED: 093179309 (6) Kidney calculi ICD Codes: N20.0 - Calculus of kidney SNOMED: 27342638 (7) Fatty liver ICD Codes: K76.0 - Fatty (change of) liver, not elsewhere classified SNOMED: 699533200 Status: deteriorating Assessment/Plan: no recurrent bleed post EGD change ppi to Q12 start clears fu cbc repeat lfts Subjective ROS Limited/Unobtainable: Yes Allergies: Coded Allergies: No Known Allergies (Unverified , 08/21/19) Objective Last 24 Hour Vital Signs Date Time Temp Pulse Resp B/P (MAP) Pulse Ox O2 Delivery O2 Flow Rate FiO2 08/25/19 09:01 114/74 08/25/19 09:01 88 114/74 08/25/19 08:00 89 08/25/19 08:00 Room Air 08/25/19 08:00 97.6 88 17 114/74 (87) 100 08/25/19 07:28 100 Nasal Cannula 2.0 28 08/25/19 04:00 Nasal Cannula 2.0 08/25/19 04:00 97.8 92 15 101/65 (77) 99 08/25/19 04:00 96 08/25/19 03:00 96 16 109/78 (88) 99 08/25/19 02:00 97 18 104/59 (74) 100 08/25/19 01:00 96 16 116/73 (87) 99 08/25/19 00:00 97.8 98 17 114/80 (91) 100 08/25/19 00:00 102 08/24/19 23:00 100 17 107/72 (84) 100 08/24/19 22:00 106 16 118/74 (89) 100 08/24/19 21:00 Nasal Cannula 2.0 08/24/19 21:00 111 24 124/68 (86) 100 08/24/19 20:00 104 08/24/19 20:00 97.9 105 17 120/79 (93) 98 08/24/19 16:32 107 18 103/70 (81) 96 08/24/19 16:30 18 87/63 (71) 96 08/24/19 16:00 98.4 18 100/48 (65) 98 08/24/19 16:00 123 08/24/19 13:25 97.4 113 19 101/64 100 Nasal Cannula 3 08/24/19 13:20 104 18 105/62 100 Nasal Cannula 3 08/24/19 13:15 108 18 103/66 100 Nasal Cannula 3 08/24/19 13:10 111 18 100 08/24/19 13:07 97.2 111 14 101/70 100 Nasal Cannula 3 Intake and Output 08/24/19 08/25/19 19:00 07:00 Intake Total 814.446 ml 1421.25 ml Output Total 0 ml 600 ml Balance 814.446 ml 821.25 ml IV Total 814.446 ml 1421.25 ml Output Urine Total 600 ml Estimated Blood Loss 0 ml # Voids 1 1 # Bowel Movements 2 Laboratory Tests 08/25/19 03:15: White Blood Count 9.5, Red Blood Count 3.38L, Hemoglobin 10.7L, Hematocrit 31.4L , Mean Corpuscular Volume 93, Mean Corpuscular Hemoglobin 31.6H, Mean Corpuscular Hemoglobin Concent 34.1, Red Cell Distribution Width 13.0, Platelet Count 139L, Mean Platelet Volume 6.3L, Neutrophils (%) (Auto) 64.2, Lymphocytes (%) (Auto) 27.5, Monocytes (%) (Auto) 6.8, Eosinophils (%) (Auto) 0.8, Basophils (%) (Auto) 0.8 Height (Feet): 5 Height (Inches): 6.00 Weight (Pounds): 210 General Appearance: alert EENT: normal ENT inspection Neck: supple Cardiovascular: normal rate Respiratory/Chest: decreased breath sounds Abdomen: normal bowel sounds, non tender, soft Extremities: non-tender Cecilio Viera MD Aug 25, 2019 12:07
[2019-08-25] MEDS ORDERED: Pantoprazole Inj IVP SCH ×2 (12:15→21:00)
--- NOTE | 2019-08-25 12:25 | General Progress Note ---
Assessment/Plan Problem List: (1) Metabolic acidosis ICD Codes: E87.2 - Acidosis SNOMED: 70257050, 834140632, 841284143 (2) Elevated troponin ICD Codes: R79.89 - Other specified abnormal findings of blood chemistry SNOMED: 093024072, 130335275, 704001639 (3) Chest pain ICD Codes: R07.9 - Chest pain, unspecified SNOMED: 19617800 (4) Abnormal LFTs ICD Codes: R94.5 - Abnormal results of liver function studies SNOMED: 225141232 (5) Hematemesis ICD Codes: K92.0 - Hematemesis SNOMED: 8517254 Status: stable, progressing, deteriorating Assessment/Plan: Mr. Le is a 64 year old male with hx of systolic CHF, HTN, presenting with acute onset chest pain, found to have transaminitis. #Chest pain #ACS #HTN #Chronic systolic CHF, EF 30% -Cardiology consult -s/p heparin gtt x 48 hrs (08/21-08/23) -Plan for stress test per cards -d/c Lasix for hematemesis (see below). can restart later as needed. -Continue home coreg 6.25 BID -Continue losartan 25 daily -TTE with EF 30%. severe LV dysfunction. #Hematemesis #GIB -s/p EGD and epi injection by GI (08/23) -s/p protonix gtt, continue 40 mg BID. -NS at 100 mL/hr. -start feeding. -PT ordered for weakness (08/24) #Transaminitis #Abdominal pain -GI consult placed. appreciate recs. -CT A/P unremarkable. Time spent on encounter: 45 minutes, including time spent on critical care of an acutely ill patient who underwent EGD for active upper GI bleeding. Time of note doesn't reflect time of encounter. Subjective Date patient seen: Aug 25, 2019 Constitutional: Denies: no symptoms, chills, diaphoresis, fever, malaise, weakness, other HEENT: Denies: no symptoms, eye pain, blurred vision, tearing, double vision, ear pain, ear discharge, nose pain, nose congestion, throat pain, throat swelling, mouth pain, mouth swelling, other Cardiovascular: Denies: no symptoms, chest pain, edema, irregular heart rate, lightheadedness, palpitations, syncope, other Respiratory: Denies: no symptoms, cough, orthopnea, shortness of breath, SOB with excertion, SOB at rest, sputum, stridor, wheezing, other Gastrointestinal/Abdominal: Denies: no symptoms, abdomen distended, abdominal pain, black stools, tarry stools, blood in stool, constipated, diarrhea, difficulty swallowing, nausea, poor appetite, poor fluid intake, rectal bleeding , vomiting, other Genitourinary: Denies: no symptoms, burning, discharge, frequency, flank pain, hematuria, incontinence, pain, urgency, other Neurologic/Psychiatric: Denies: no symptoms, anxiety, depressed, emotional problems, headache, numbness, paresthesia, pre-existing deficit, seizure, tingling, tremors, weakness, other Endocrine: Denies: no symptoms, excessive sweating, flushing, intolerance to cold, intolerance to heat, increased hunger, increased thirst, increased urine, unexplained weight gain, unexplained weight loss, other Hematologic/Lymphatic: Denies: no symptoms, anemia, easy bleeding, easy bruising, other Allergies: Coded Allergies: No Known Allergies (Unverified , 08/21/19) Subjective s/p EGD yesterday s/p epi injection. now resting in ICU. hungry, denies any more pain. Objective Last 24 Hour Vital Signs Date Time Temp Pulse Resp B/P (MAP) Pulse Ox O2 Delivery O2 Flow Rate FiO2 08/25/19 09:01 114/74 08/25/19 09:01 88 114/74 08/25/19 08:00 89 08/25/19 08:00 Room Air 08/25/19 08:00 97.6 88 17 114/74 (87) 100 08/25/19 07:28 100 Nasal Cannula 2.0 28 08/25/19 04:00 Nasal Cannula 2.0 08/25/19 04:00 97.8 92 15 101/65 (77) 99 08/25/19 04:00 96 08/25/19 03:00 96 16 109/78 (88) 99 08/25/19 02:00 97 18 104/59 (74) 100 08/25/19 01:00 96 16 116/73 (87) 99 08/25/19 00:00 97.8 98 17 114/80 (91) 100 08/25/19 00:00 102 3/5/20 23:00 100 17 107/72 (84) 100 08/24/19 22:00 106 16 118/74 (89) 100 08/24/19 21:00 Nasal Cannula 2.0 08/24/19 21:00 111 24 124/68 (86) 100 08/24/19 20:00 104 08/24/19 20:00 97.9 105 17 120/79 (93) 98 08/24/19 16:32 107 18 103/70 (81) 96 08/24/19 16:30 18 87/63 (71) 96 08/24/19 16:00 98.4 18 100/48 (65) 98 08/24/19 16:00 123 08/24/19 13:25 97.4 113 19 101/64 100 Nasal Cannula 3 08/24/19 13:20 104 18 105/62 100 Nasal Cannula 3 08/24/19 13:15 108 18 103/66 100 Nasal Cannula 3 08/24/19 13:10 111 18 100 08/24/19 13:07 97.2 111 14 101/70 100 Nasal Cannula 3 Intake and Output 08/24/19 08/25/19 19:00 07:00 Intake Total 814.446 ml 1421.25 ml Output Total 0 ml 600 ml Balance 814.446 ml 821.25 ml IV Total 814.446 ml 1421.25 ml Output Urine Total 600 ml Estimated Blood Loss 0 ml # Voids 1 1 # Bowel Movements 2 Laboratory Tests 08/25/19 03:15: White Blood Count 9.5, Red Blood Count 3.38L, Hemoglobin 10.7L, Hematocrit 31.4L , Mean Corpuscular Volume 93, Mean Corpuscular Hemoglobin 31.6H, Mean Corpuscular Hemoglobin Concent 34.1, Red Cell Distribution Width 13.0, Platelet Count 139L, Mean Platelet Volume 6.3L, Neutrophils (%) (Auto) 64.2, Lymphocytes (%) (Auto) 27.5, Monocytes (%) (Auto) 6.8, Eosinophils (%) (Auto) 0.8, Basophils (%) (Auto) 0.8 Height (Feet): 5 Height (Inches): 6.00 Weight (Pounds): 210 General Appearance: no apparent distress, alert Neck: supple Cardiovascular: normal rate, regular rhythm Respiratory/Chest: lungs clear, normal breath sounds Abdomen: non tender, soft Ana Paula Williamson M.D. Aug 25, 2019 12:25
--- NOTE | 2019-08-25 12:33 | NUR ---
RIVET SPINNERMANAGER LAW SI: CHEST PAIN,ACS S/P EGD T. 97.6 HR 88 RR 17 B/P 114/74 2L NC O2 SAT @ 98% VENOUS DOPPLER= NEGATIVE IS: IVF NS @ 100ML/HR PROTONIX IV ICU STATUS
--- NOTE | 2019-08-25 13:00 | NUR ---
NURSE NOTES: Pt served clear liquid diet for lunch,tolerated well no vomiting or abd pain presented.
--- NOTE | 2019-08-25 13:34 | NUR ---
INSTANT POWDER SUPERVISOR NOTE Pt speaks and understand minimal Indonesian. ELVIS met w/ pt and informed that his bed is still on hold. ELVIS will inform pt if there is any change. Pt verbalized understanding. Signed: 08/25/19 at 1336 by RASHEL LEAL <Co-Signature Required>
--- NOTE | 2019-08-25 14:19 | NUR ---
RD ASSESSMENT & RECOMMENDATIONS SEE CARE ACTIVITY FOR COMPLETE ASSESSMENT DAILY ESTIMATED NEEDS: Needs based on liver dysfunction, cardiac/ 72kg abw 25-30 kcals/kg 1026-7013 total kcals 1-1.5 g protein/kg 72-108 g total protein 25-30 mL/kg 5537-5055 total fluid mLs NUTRITION DIAGNOSIS: Altered nutrition related lab values R/T liver dysfunction as evidenced by elev LFTs and T bili 1.3. CURRENT DIET:CARDIAC PO DIET RECOMMENDATIONS: LOW NA, LOW FAT/ SOFT ADDITIONAL RECOMMENDATIONS: * Standing wt for accurate CBW * Monitor H/H: active GIB, no more bleeding at this time per MD * Monitor lytes, replete as needed (low K) * Monitor BGs, need for carb controlled diet: (BG 147 158) * Check A1C for eval of BG control
--- NOTE | 2019-08-25 14:20 | Cardiology Progress Note ---
Assessment/Plan Status: stable Assessment/Plan Assessment/Plan Status: stable Assessment/Plan: Assessment: Chest pain CHF acute on chronic NSVT Elevated troponin/ACS Elevated LFT Plan: restart when cleared by GI :Aspirin/plavix d/c heparin Continue coreg/losartan Statin Nitro prn Stress test Wednesday Subjective Cardiovascular: Reports: no symptoms Respiratory: Reports: no symptoms Gastrointestinal/Abdominal: Reports: no symptoms Genitourinary: Reports: no symptoms Subjective Stress test delayed due to GI hemoptysis, heparin d/c. Sent to ICU, s/p EGD showed luci la tear. now bleeding stopped and tolerating clear liquid diet Objective Last 24 Hour Vital Signs Date Time Temp Pulse Resp B/P (MAP) Pulse Ox O2 Delivery O2 Flow Rate FiO2 08/25/19 12:00 86 08/25/19 09:01 114/74 08/25/19 09:01 88 114/74 08/25/19 08:00 89 08/25/19 08:00 Room Air 08/25/19 08:00 97.6 88 17 114/74 (87) 100 08/25/19 07:28 100 Nasal Cannula 2.0 28 08/25/19 04:00 Nasal Cannula 2.0 08/25/19 04:00 97.8 92 15 101/65 (77) 99 08/25/19 04:00 96 08/25/19 03:00 96 16 109/78 (88) 99 08/25/19 02:00 97 18 104/59 (74) 100 08/25/19 01:00 96 16 116/73 (87) 99 08/25/19 00:00 97.8 98 17 114/80 (91) 100 08/25/19 00:00 102 08/24/19 23:00 100 17 107/72 (84) 100 08/24/19 22:00 106 16 118/74 (89) 100 08/24/19 21:00 Nasal Cannula 2.0 08/24/19 21:00 111 24 124/68 (86) 100 08/24/19 20:00 104 08/24/19 20:00 97.9 105 17 120/79 (93) 98 08/24/19 16:32 107 18 103/70 (81) 96 08/24/19 16:30 18 87/63 (71) 96 08/24/19 16:00 98.4 18 100/48 (65) 98 08/24/19 16:00 123 General Appearance: no apparent distress, alert EENT: PERRL/EOMI, normal ENT inspection, TMs normal, pharynx normal Neck: non-tender, normal alignment, supple, normal inspection, no JVD Rhythm: NSR Cardiovascular: normal peripheral pulses, normal rate, regular rhythm Respiratory/Chest: chest wall non-tender, lungs clear, normal breath sounds Abdomen: normal bowel sounds, non tender, soft, no organomegaly Extremities: normal range of motion, non-tender Neurologic: greenhouse specialist II-XII grossly normal, no motor/sensory deficits Intake and Output 08/24/19 08/25/19 19:00 07:00 Intake Total 814.446 ml 1421.25 ml Output Total 0 ml 600 ml Balance 814.446 ml 821.25 ml IV Total 814.446 ml 1421.25 ml Output Urine Total 600 ml Estimated Blood Loss 0 ml # Voids 1 1 # Bowel Movements 2 Laboratory Tests Test 08/25/19 03:15 White Blood Count 9.5 K/UL (4.8-10.8) Red Blood Count 3.38 M/UL (4.70-6.10) L Hemoglobin 10.7 G/DL (14.2-18.0) L Hematocrit 31.4 % (42.0-52.0) L Mean Corpuscular Volume 93 FL (80-99) Mean Corpuscular Hemoglobin 31.6 PG (27.0-31.0) H Mean Corpuscular Hemoglobin Concent 34.1 G/DL (32.0-36.0) Red Cell Distribution Width 13.0 % (11.6-14.8) Platelet Count 139 K/UL (150-450) L Mean Platelet Volume 6.3 FL (6.5-10.1) L Neutrophils (%) (Auto) 64.2 % (45.0-75.0) Lymphocytes (%) (Auto) 27.5 % (20.0-45.0) Monocytes (%) (Auto) 6.8 % (1.0-10.0) Eosinophils (%) (Auto) 0.8 % (0.0-3.0) Basophils (%) (Auto) 0.8 % (0.0-2.0) Erickson Marin MD Aug 25, 2019 14:20
--- NOTE | 2019-08-25 14:30 | NUR ---
TRANSFER TO FLOOR: Patient transferred to 2E Telemetry room 204-1, per bed awake,alert oriented in no acute distress. Report given to Carlos MORALES Belongings given to receiving RN.
[2019-08-25] MEDS ORDERED: LORazepam Inj 2mg/ml 1ml IV PRN (15:30)
[2019-08-25] MEDS ORDERED: Nitroglycerin Subl 0.4mg tab SL PRN (15:30)
[2019-08-25] MEDS ORDERED: Lexiscan 0.4mg/5ml syringe IV PRN (15:30)
[2019-08-25] MEDS ORDERED: Hydromorphone 0.5mg/0.5ml inj IVP PRN (15:30)
[2019-08-25] MEDS ORDERED: DiphenhydrAMINE 25mg Tab ORAL PRN (15:30)
--- NOTE | 2019-08-25 19:40 | NUR ---
NURSE NOTES: Received pt and report from JORGE Gonzalez. Observed pt resting in bed with both eyes open and watching television. Pt is A/Ox4. environmental monitoring technician is in placed; pt is NSR. IV site intact, asymptomatic, and patent; running NS @100cc/hr. Bed is in the lowest position and locked. Call light and bedside table is within reach. No signs/symptoms of acute distress noted at this time. Will continue plan of care.
[2019-08-25] MEDS: HYDROmorphone 1mg/ml Carpuject IVP PRN (20:05)
[2019-08-25] MEDS: Pantoprazole Inj IVP SCH (20:40)
[2019-08-26] VITALS: BP 109/65
--- NOTE | 2019-08-26 02:27 | NUR ---
NURSE NOTES: Observed pt asleep in bed. No signs/symptoms of acute distress noted at this time. Will continue plan of care.
[2019-08-26] MEDS: Metoclopramide 10mg/2ml Inj IVP SCH ×4 (03:11→20:23)
[2019-08-26 04:00] VITALS: BP 105/63
[2019-08-26] MEDS: HYDROmorphone 1mg/ml Carpuject IVP PRN (04:09)
--- NOTE | 2019-08-26 07:27 | NUR ---
HAND-OFF: Report given to JORGE Gonzalez. Plan of care endorsed.
[2019-08-26 07:28] LABS: EOSINOPHILS % (AUTO) 4.2 % (0.0-3.0); HEMATOCRIT 25.7 % (42.0-52.0); HEMOGLOBIN 8.6 G/DL (14.2-18.0); MEAN CORPUSCULAR VOLUME 94 FL (80-99); MONOCYTES % (AUTO) 7.3 % (1.0-10.0); NEUTROPHILS % (AUTO) 56.6 % (45.0-75.0); PLATELET COUNT 111 K/UL (150-450); RED BLOOD COUNT 2.72 M/UL (4.70-6.10); RED CELL DISTRIBUTION WIDTH 13.6 % (11.6-14.8); WHITE BLOOD COUNT 5.7 K/UL (4.8-10.8)
[2019-08-26 07:41] LABS: ALANINE AMINOTRANSFERASE 76 U/L (12-78); ALBUMIN 2.6 G/DL (3.4-5.0); ALBUMIN/GLOBULIN RATIO 0.8 (1.0-2.7); ALKALINE PHOSPHATASE 40 U/L (46-116); ANION GAP 6 mmol/L (5-15); ASPARTATE AMINO TRANSFERASE 50 U/L (15-37); BILIRUBIN,TOTAL 0.5 MG/DL (0.2-1.0); BLOOD UREA NITROGEN 16 mg/dL (7-18); CALCIUM 8.3 MG/DL (8.5-10.1); CARBON DIOXIDE 30 MMOL/L (21-32); CHLORIDE 105 MMOL/L (98-107); CREATININE 0.6 MG/DL (0.55-1.30); POTASSIUM 3.5 MMOL/L (3.5-5.1); SODIUM 141 MMOL/L (136-145)
[2019-08-26 08:00] VITALS: BP_SYST 144; BP_SYST 94; BP_DIAS 62
--- NOTE | 2019-08-26 09:11 | General Progress Note ---
Assessment/Plan Problem List: (1) Hematemesis ICD Codes: K92.0 - Hematemesis SNOMED: 8318769 (2) Abnormal LFTs ICD Codes: R94.5 - Abnormal results of liver function studies SNOMED: 776664860 (3) Chest pain ICD Codes: R07.9 - Chest pain, unspecified SNOMED: 21493430 (4) Elevated troponin ICD Codes: R79.89 - Other specified abnormal findings of blood chemistry SNOMED: 517789133, 744470092, 892670604 (5) Diverticulosis ICD Codes: K57.90 - Diverticulosis of intestine, part unspecified, without perforation or abscess without bleeding SNOMED: 521223432 (6) Kidney calculi ICD Codes: N20.0 - Calculus of kidney SNOMED: 95187104 (7) Fatty liver ICD Codes: K76.0 - Fatty (change of) liver, not elsewhere classified SNOMED: 677197434 Status: stable Assessment/Plan: no recurrent bleed post EGD ppi to Q12 fu cbc repeat lfts>>>improving add carafate pending cardiac stress test Subjective ROS Limited/Unobtainable: Yes Allergies: Coded Allergies: No Known Allergies (Unverified , 08/21/19) Objective Last 24 Hour Vital Signs Date Time Temp Pulse Resp B/P (MAP) Pulse Ox O2 Delivery O2 Flow Rate FiO2 08/26/19 08:39 Nasal Cannula 2.0 08/26/19 08:00 97.6 94 19 144/62 (89) 97 08/26/19 04:00 88 08/26/19 04:00 98.4 89 18 105/63 (77) 97 08/26/19 00:00 91 08/26/19 00:00 98.0 91 20 109/65 (80) 98 08/25/19 21:00 Nasal Cannula 2.0 08/25/19 20:00 98.0 89 20 119/60 (79) 100 08/25/19 20:00 89 08/25/19 18:47 98.6 88 16 133/71 (91) 98 08/25/19 16:00 88 08/25/19 16:00 97.9 88 16 105/72 (83) 98 08/25/19 14:00 83 19 102/54 (70) 100 08/25/19 13:00 83 18 103/61 (75) 100 08/25/19 12:00 98.0 86 18 104/57 (73) 100 08/25/19 12:00 86 08/25/19 11:00 88 17 88/49 (62) 100 08/25/19 10:00 88 17 85/45 (58) 100 Intake and Output 08/25/19 08/26/19 19:00 07:00 Intake Total 400 ml 140 ml Output Total 1600 ml Balance 400 ml -1460 ml Intake Oral 140 ml IV Total 400 ml Output Urine Total 1600 ml Stool Total 0 ml # Voids 6 Laboratory Tests 08/26/19 06:10: White Blood Count 5.7, Red Blood Count 2.72L, Hemoglobin 8.6L, Hematocrit 25.7L , Mean Corpuscular Volume 94, Mean Corpuscular Hemoglobin 31.6H, Mean Corpuscular Hemoglobin Concent 33.6, Red Cell Distribution Width 13.6, Platelet Count 111L, Mean Platelet Volume 6.5, Neutrophils (%) (Auto) 56.6, Lymphocytes ( %) (Auto) 31.0, Monocytes (%) (Auto) 7.3, Eosinophils (%) (Auto) 4.2H, Basophils (%) (Auto) 1.0, Sodium Level 141, Potassium Level 3.5, Chloride Level 105, Carbon Dioxide Level 30, Anion Gap 6, Blood Urea Nitrogen 16, Creatinine 0.6, Estimat Glomerular Filtration Rate > 60, Glucose Level 116H, Calcium Level 8.3L, Total Bilirubin 0.5, Aspartate Amino Transf (AST/SGOT) 50H, Alanine Aminotransferase (ALT/SGPT) 76, Alkaline Phosphatase 40L, Total Protein 5.9L, Albumin 2.6L, Globulin 3.3, Albumin/Globulin Ratio 0.8L Height (Feet): 5 Height (Inches): 6.00 Weight (Pounds): 214 General Appearance: alert EENT: normal ENT inspection Neck: supple Cardiovascular: normal rate Respiratory/Chest: decreased breath sounds Abdomen: normal bowel sounds, non tender, soft Extremities: non-tender Cecilio Viera MD Aug 26, 2019 09:11
[2019-08-26] MEDS: Pantoprazole Inj IVP SCH ×2 (09:12→20:23)
[2019-08-26] MEDS: Docusate 100mg cap ORAL SCH ×2 (09:13→20:23)
[2019-08-26] MEDS: Carvedilol 6.25mg Tab ORAL SCH (09:13)
[2019-08-26] MEDS: Losartan 25mg tab ORAL SCH (09:13)
--- NOTE | 2019-08-26 10:12 | General Progress Note ---
Assessment/Plan Status: stable Assessment/Plan: Mr. Le is a 64 year old male with hx of systolic CHF, HTN, presenting with acute onset chest pain, found to have transaminitis. #Chest pain #Elevated troponins/ACS #HTN #Acute on Chronic systolic CHF, HFrEF 30% #NSVT -s/p heparin gtt x 48 hrs (08/21-08/23) -TTE with EF 30%. severe LV dysfunction. -Continue coreg 6.25 BID, losartan 25 daily -d/c Lasix for hematemesis (see below). can restart later as needed. -Cardiology following: restart ASA/Plavix when cleared by GI, plan for stress test wednesday #Hematemesis #GIB #acute blood loss anemia -no signs of bleeding, cont. to monitor -transfuse for Hgb <7 -s/p EGD and epi injection by GI (08/23) -s/p protonix gtt -cont. PPi BID -NS at 100 mL/hr -start feeding. -PT ordered for weakness (08/24) -GI following: carafate #Transaminitis #Abdominal pain -CT A/P unremarkable. -GI following, reccs appreciated Time spent on encounter: 65 minutes, >50% time spent on chart review, pt counseling and coordination of care. Time of note doesn't reflect time of encounter. Subjective Constitutional: Denies: no symptoms, chills, diaphoresis, fever, malaise, weakness, other HEENT: Denies: no symptoms, eye pain, blurred vision, tearing, double vision, ear pain, ear discharge, nose pain, nose congestion, throat pain, throat swelling, mouth pain, mouth swelling, other Cardiovascular: Denies: no symptoms, chest pain, edema, irregular heart rate, lightheadedness, palpitations, syncope, other Respiratory: Denies: no symptoms, cough, orthopnea, shortness of breath, SOB with excertion, SOB at rest, sputum, stridor, wheezing, other Gastrointestinal/Abdominal: Denies: no symptoms, abdomen distended, abdominal pain, black stools, tarry stools, blood in stool, constipated, diarrhea, difficulty swallowing, nausea, poor appetite, poor fluid intake, rectal bleeding , vomiting, other Genitourinary: Denies: no symptoms, burning, discharge, frequency, flank pain, hematuria, incontinence, pain, urgency, other Neurologic/Psychiatric: Denies: no symptoms, anxiety, depressed, emotional problems, headache, numbness, paresthesia, pre-existing deficit, seizure, tingling, tremors, weakness, other Endocrine: Denies: no symptoms, excessive sweating, flushing, intolerance to cold, intolerance to heat, increased hunger, increased thirst, increased urine, unexplained weight gain, unexplained weight loss, other Hematologic/Lymphatic: Denies: no symptoms, anemia, easy bleeding, easy bruising, other Allergies: Coded Allergies: No Known Allergies (Unverified , 08/21/19) Subjective Pt notes vivid dreams qHS that woke him up, states he feels anxious w.mild FULTON. Denies vision changes, N/V, SOB, abd pain, dysuria or constipation at this time. Objective Last 24 Hour Vital Signs Date Time Temp Pulse Resp B/P (MAP) Pulse Ox O2 Delivery O2 Flow Rate FiO2 08/26/19 09:13 144/62 08/26/19 09:13 94 144/62 08/26/19 08:39 Nasal Cannula 2.0 08/26/19 08:00 91 08/26/19 08:00 97.6 94 19 144/62 (89) 97 08/26/19 04:00 88 08/26/19 04:00 98.4 89 18 105/63 (77) 97 08/26/19 00:00 91 08/26/19 00:00 98.0 91 20 109/65 (80) 98 08/25/19 21:00 Nasal Cannula 2.0 08/25/19 20:00 98.0 89 20 119/60 (79) 100 08/25/19 20:00 89 08/25/19 18:47 98.6 88 16 133/71 (91) 98 08/25/19 16:00 88 08/25/19 16:00 97.9 88 16 105/72 (83) 98 08/25/19 14:00 83 19 102/54 (70) 100 08/25/19 13:00 83 18 103/61 (75) 100 08/25/19 12:00 98.0 86 18 104/57 (73) 100 08/25/19 12:00 86 08/25/19 11:00 88 17 88/49 (62) 100 Intake and Output 08/25/19 08/26/19 19:00 07:00 Intake Total 400 ml 140 ml Output Total 1600 ml Balance 400 ml -1460 ml Intake Oral 140 ml IV Total 400 ml Output Urine Total 1600 ml Stool Total 0 ml # Voids 6 Laboratory Tests 08/26/19 06:10: White Blood Count 5.7, Red Blood Count 2.72L, Hemoglobin 8.6L, Hematocrit 25.7L , Mean Corpuscular Volume 94, Mean Corpuscular Hemoglobin 31.6H, Mean Corpuscular Hemoglobin Concent 33.6, Red Cell Distribution Width 13.6, Platelet Count 111L, Mean Platelet Volume 6.5, Neutrophils (%) (Auto) 56.6, Lymphocytes ( %) (Auto) 31.0, Monocytes (%) (Auto) 7.3, Eosinophils (%) (Auto) 4.2H, Basophils (%) (Auto) 1.0, Sodium Level 141, Potassium Level 3.5, Chloride Level 105, Carbon Dioxide Level 30, Anion Gap 6, Blood Urea Nitrogen 16, Creatinine 0.6, Estimat Glomerular Filtration Rate > 60, Glucose Level 116H, Calcium Level 8.3L, Total Bilirubin 0.5, Aspartate Amino Transf (AST/SGOT) 50H, Alanine Aminotransferase (ALT/SGPT) 76, Alkaline Phosphatase 40L, Total Protein 5.9L, Albumin 2.6L, Globulin 3.3, Albumin/Globulin Ratio 0.8L Height (Feet): 5 Height (Inches): 6.00 Weight (Pounds): 214 Objective General Appearance: no apparent distress, alert Neck: supple Cardiovascular: normal rate, regular rhythm Respiratory/Chest: lungs clear, normal breath sounds Abdomen: non tender, soft Ext: no edema Darrius Capellan M.D. Aug 26, 2019 10:12
[2019-08-26 12:00] VITALS: BP 92/55
[2019-08-26] MEDS: Sucralfate 1gm tab ORAL SCH ×3 (13:20→20:23)
[2019-08-26] MEDS ORDERED: Tubing IV Secondary IV ONE (15:14)
[2019-08-26] MEDS ORDERED: NS 275ml ONE (15:14)
[2019-08-26 16:00] VITALS: BP 95/51
--- NOTE | 2019-08-26 19:00 | NUR ---
NURSE NOTES: Report received from JORGE Gonzalez. Pt is observed resting in bed. Pt noted to be alert and oriented x3-4. Pt is able to follow commands and make needs known. Pt assessed for pain; and notes right lower leg discomfort r/t cellulitis. Pt noted to be SR on library monitor with a current HR of 72 and no s/sx of cardiac distress noted. Pt is currently 2L NC and no s/sx of acute distress noted. Right hand 22g IV catheter noted which remain asymptomatic, patent and intact. Ns currently infusing at 100mL/hr as ordered. Skin remains intact. Diagnostics reviewed and pt agrees to safety contract, will use call light despite being ambulatory. Pt remains resting in bed; bed remains in the lowest position with safety wheels engaged, side rails up x3, call light within reach and bed alarm activated. Will continue plan of care. Will continue to monitor.
[2019-08-26 20:00] VITALS: BP 101/71
--- NOTE | 2019-08-26 21:00 | NUR ---
NURSE NOTES: Pt provided with materials for bed bath, oral care and linen change. Pt performed care with minimal assistance and remains resting in bed; bed remains in the lowest position with safety wheels engaged, side rails up x3, call light within reach and bed alarm activated. Will continue plan of care. Will continue to monitor.
[2019-08-27] VITALS: BP 118/69
[2019-08-27] MEDS: Metoclopramide 10mg/2ml Inj IVP SCH ×4 (03:45→22:35)
[2019-08-27 04:00] VITALS: BP 116/70
[2019-08-27 07:08] LABS: BASOPHILS % (AUTO) 0.7 % (0.0-2.0); EOSINOPHILS % (AUTO) 3.6 % (0.0-3.0); HEMATOCRIT 24.2 % (42.0-52.0); HEMOGLOBIN 8.1 G/DL (14.2-18.0); LYMPHOCYTES % (AUTO) 35.4 % (20.0-45.0); MEAN CORPUSCULAR VOLUME 94 FL (80-99); NEUTROPHILS % (AUTO) 52.2 % (45.0-75.0); PLATELET COUNT 112 K/UL (150-450); RED BLOOD COUNT 2.57 M/UL (4.70-6.10); RED CELL DISTRIBUTION WIDTH 13.2 % (11.6-14.8); WHITE BLOOD COUNT 5.2 K/UL (4.8-10.8)
--- NOTE | 2019-08-27 07:11 | NUR ---
HAND-OFF: Report given to JORGE Gonzalez. Pt remains stable at this time.
[2019-08-27 07:33] LABS: ALANINE AMINOTRANSFERASE 67 U/L (12-78); ALBUMIN 2.6 G/DL (3.4-5.0); ALBUMIN/GLOBULIN RATIO 0.8 (1.0-2.7); ALKALINE PHOSPHATASE 39 U/L (46-116); ANION GAP 5 mmol/L (5-15); ASPARTATE AMINO TRANSFERASE 42 U/L (15-37); BILIRUBIN,TOTAL 0.4 MG/DL (0.2-1.0); BLOOD UREA NITROGEN 11 mg/dL (7-18); CALCIUM 8.2 MG/DL (8.5-10.1); CARBON DIOXIDE 31 MMOL/L (21-32); CHLORIDE 104 MMOL/L (98-107); CREATININE 0.7 MG/DL (0.55-1.30); POTASSIUM 3.5 MMOL/L (3.5-5.1); SODIUM 140 MMOL/L (136-145)
[2019-08-27 08:00] VITALS: BP 151/87
--- NOTE | 2019-08-27 08:43 | General Progress Note ---
Assessment/Plan Problem List: (1) Hematemesis ICD Codes: K92.0 - Hematemesis SNOMED: 8387460 (2) Abnormal LFTs ICD Codes: R94.5 - Abnormal results of liver function studies SNOMED: 876648847 (3) Chest pain ICD Codes: R07.9 - Chest pain, unspecified SNOMED: 69118067 (4) Elevated troponin ICD Codes: R79.89 - Other specified abnormal findings of blood chemistry SNOMED: 691771143, 409781752, 617055609 (5) Diverticulosis ICD Codes: K57.90 - Diverticulosis of intestine, part unspecified, without perforation or abscess without bleeding SNOMED: 320901890 (6) Kidney calculi ICD Codes: N20.0 - Calculus of kidney SNOMED: 71680099 (7) Fatty liver ICD Codes: K76.0 - Fatty (change of) liver, not elsewhere classified SNOMED: 054448109 Status: stable Assessment/Plan: no recurrent bleed post EGD ppi to Q12 fu cbc repeat lfts>>>improving carafate pending cardiac stress test dc ivf Subjective ROS Limited/Unobtainable: Yes Allergies: Coded Allergies: No Known Allergies (Unverified , 08/21/19) Objective Last 24 Hour Vital Signs Date Time Temp Pulse Resp B/P (MAP) Pulse Ox O2 Delivery O2 Flow Rate FiO2 08/27/19 04:06 91 08/27/19 04:00 97.7 90 16 116/70 (85) 98 08/27/19 00:00 98.1 91 16 118/69 (85) 98 08/26/19 23:52 93 08/26/19 21:00 Nasal Cannula 2.0 Nasal Cannula 2.0 08/26/19 20:13 88 08/26/19 20:00 99.7 94 18 101/71 (81) 99 08/26/19 19:53 91 08/26/19 16:00 88 08/26/19 16:00 98.2 89 18 95/51 (66) 99 08/26/19 12:00 94 08/26/19 12:00 98.2 91 19 92/55 (67) 98 08/26/19 09:13 144/62 08/26/19 09:13 94 144/62 Intake and Output 08/26/19 08/27/19 19:00 07:00 Intake Total 820 ml 1140.33 ml Output Total 1000 ml 1 ml Balance -180 ml 1139.33 ml Intake Oral 720 ml 242 ml IV Total 100 ml 898.33 ml Output Urine Total 1000 ml Stool Total 1 ml # Voids 4 Laboratory Tests 08/27/19 06:10: White Blood Count 5.2, Red Blood Count 2.57L, Hemoglobin 8.1L, Hematocrit 24.2L , Mean Corpuscular Volume 94, Mean Corpuscular Hemoglobin 31.7H, Mean Corpuscular Hemoglobin Concent 33.7, Red Cell Distribution Width 13.2, Platelet Count 112L, Mean Platelet Volume 6.6, Neutrophils (%) (Auto) 52.2, Lymphocytes ( %) (Auto) 35.4, Monocytes (%) (Auto) 8.0, Eosinophils (%) (Auto) 3.6H, Basophils (%) (Auto) 0.7, Sodium Level 140, Potassium Level 3.5, Chloride Level 104, Carbon Dioxide Level 31, Anion Gap 5, Blood Urea Nitrogen 11, Creatinine 0.7, Estimat Glomerular Filtration Rate > 60, Glucose Level 118H, Calcium Level 8.2L, Total Bilirubin 0.4, Aspartate Amino Transf (AST/SGOT) 42H, Alanine Aminotransferase (ALT/SGPT) 67, Alkaline Phosphatase 39L, Total Protein 5.9L, Albumin 2.6L, Globulin 3.3, Albumin/Globulin Ratio 0.8L Height (Feet): 5 Height (Inches): 6.00 Weight (Pounds): 213 General Appearance: alert EENT: normal ENT inspection Neck: supple Cardiovascular: normal rate Respiratory/Chest: decreased breath sounds Abdomen: normal bowel sounds, non tender, soft Extremities: non-tender Cecilio Viera MD Aug 27, 2019 08:43
[2019-08-27] MEDS: Pantoprazole Inj IVP SCH ×2 (09:25→22:35)
[2019-08-27] MEDS: Docusate 100mg cap ORAL SCH ×2 (09:25→22:35)
[2019-08-27] MEDS: Carvedilol 6.25mg Tab ORAL SCH (09:25)
[2019-08-27] MEDS: Losartan 25mg tab ORAL SCH (09:25)
[2019-08-27] MEDS: Sucralfate 1gm tab ORAL SCH ×4 (09:25→22:35)
[2019-08-27 12:00] VITALS: BP 153/83
--- NOTE | 2019-08-27 12:54 | General Progress Note ---
Assessment/Plan Status: stable Assessment/Plan: Mr. Le is a 64 year old male with hx of systolic CHF, HTN, presenting with acute onset chest pain, found to have transaminitis. #Chest pain #Elevated troponins/ACS #HTN #Acute on Chronic systolic CHF, HFrEF 30% #NSVT -s/p heparin gtt x 48 hrs (08/21-08/23) -TTE with EF 30%. severe LV dysfunction. -Continue coreg 6.25 BID, losartan 25 daily -d/c Lasix for hematemesis (see below). can restart later as needed. -Cardiology following: restart ASA/Plavix when cleared by GI, plan for stress test wednesday NPO past MN #Hematemesis #GIB #acute blood loss anemia -no signs of bleeding, cont. to monitor -transfuse for Hgb <7 -s/p EGD and epi injection by GI (08/23) -s/p protonix gtt -cont. PPi BID -start feeding. -PT ordered for weakness (08/24) -GI following: Carafate #Transaminitis - downtrending #Abdominal pain -CT A/P unremarkable. -GI following: PPI, carafate Time spent on encounter: 35 minutes, >50% time spent on pt counseling and coordination of care. Discussed case w/GI. Time of note doesn't reflect time of encounter. Subjective Allergies: Coded Allergies: No Known Allergies (Unverified , 08/21/19) Subjective Pt states he feels well today, denies any CP, N/V, SOB, abd pain, dysuria or constipation at this time. Objective Last 24 Hour Vital Signs Date Time Temp Pulse Resp B/P (MAP) Pulse Ox O2 Delivery O2 Flow Rate FiO2 08/27/19 12:00 97.7 82 20 153/83 (106) 100 08/27/19 09:25 116/70 08/27/19 09:25 91 116/70 08/27/19 08:00 92 08/27/19 08:00 98.1 88 18 151/87 (108) 98 08/27/19 04:06 91 08/27/19 04:00 97.7 90 16 116/70 (85) 98 08/27/19 00:00 98.1 91 16 118/69 (85) 98 08/26/19 23:52 93 08/26/19 21:00 Nasal Cannula 2.0 Nasal Cannula 2.0 08/26/19 20:13 88 08/26/19 20:00 99.7 94 18 101/71 (81) 99 08/26/19 19:53 91 08/26/19 16:00 88 08/26/19 16:00 98.2 89 18 95/51 (66) 99 Intake and Output 08/26/19 08/27/19 19:00 07:00 Intake Total 820 ml 1140.33 ml Output Total 1000 ml 1 ml Balance -180 ml 1139.33 ml Intake Oral 720 ml 242 ml IV Total 100 ml 898.33 ml Output Urine Total 1000 ml Stool Total 1 ml # Voids 4 Laboratory Tests 08/27/19 06:10: White Blood Count 5.2, Red Blood Count 2.57L, Hemoglobin 8.1L, Hematocrit 24.2L , Mean Corpuscular Volume 94, Mean Corpuscular Hemoglobin 31.7H, Mean Corpuscular Hemoglobin Concent 33.7, Red Cell Distribution Width 13.2, Platelet Count 112L, Mean Platelet Volume 6.6, Neutrophils (%) (Auto) 52.2, Lymphocytes ( %) (Auto) 35.4, Monocytes (%) (Auto) 8.0, Eosinophils (%) (Auto) 3.6H, Basophils (%) (Auto) 0.7, Sodium Level 140, Potassium Level 3.5, Chloride Level 104, Carbon Dioxide Level 31, Anion Gap 5, Blood Urea Nitrogen 11, Creatinine 0.7, Estimat Glomerular Filtration Rate > 60, Glucose Level 118H, Calcium Level 8.2L, Total Bilirubin 0.4, Aspartate Amino Transf (AST/SGOT) 42H, Alanine Aminotransferase (ALT/SGPT) 67, Alkaline Phosphatase 39L, Total Protein 5.9L, Albumin 2.6L, Globulin 3.3, Albumin/Globulin Ratio 0.8L Height (Feet): 5 Height (Inches): 6.00 Weight (Pounds): 213 Objective General Appearance: no apparent distress, alert Neck: supple Cardiovascular: normal rate, regular rhythm Respiratory/Chest: lungs clear, normal breath sounds Abdomen: non tender, soft Ext: no edema Darrius Capellan M.D. Aug 27, 2019 12:54
[2019-08-27 16:00] VITALS: BP 142/71
--- NOTE | 2019-08-27 19:05 | Cardiology Progress Note ---
Assessment/Plan Status: stable Assessment/Plan Assessment/Plan Status: stable Assessment/Plan: Assessment: Chest pain CHF acute on chronic NSVT Elevated troponin/ACS Elevated LFT Plan: restart when cleared by GI :Aspirin/plavix d/c heparin Continue coreg/losartan - increase coreg dose Start aldactone 25 mg daily Spot dose lasix Statin Nitro prn Stress test Wednesday arrange for life vest given systolic dysfunction LVEF 30% May need ICD if LVEF does not improve Subjective Cardiovascular: Reports: no symptoms Respiratory: Reports: no symptoms Gastrointestinal/Abdominal: Reports: no symptoms Genitourinary: Reports: no symptoms Subjective NO acute events, H.H stable, vitals stable, no complaints, stress test for wednesday Objective Last 24 Hour Vital Signs Date Time Temp Pulse Resp B/P (MAP) Pulse Ox O2 Delivery O2 Flow Rate FiO2 08/27/19 12:00 97.7 82 20 153/83 (106) 100 08/27/19 12:00 87 08/27/19 09:25 116/70 08/27/19 09:25 91 116/70 08/27/19 09:00 Room Air 08/27/19 08:00 92 08/27/19 08:00 98.1 88 18 151/87 (108) 98 08/27/19 04:06 91 08/27/19 04:00 97.7 90 16 116/70 (85) 98 08/27/19 00:00 98.1 91 16 118/69 (85) 98 08/26/19 23:52 93 08/26/19 21:00 Nasal Cannula 2.0 Nasal Cannula 2.0 08/26/19 20:13 88 08/26/19 20:00 99.7 94 18 101/71 (81) 99 08/26/19 19:53 91 General Appearance: no apparent distress, alert EENT: PERRL/EOMI, normal ENT inspection, TMs normal, pharynx normal Neck: non-tender, normal alignment, supple, normal inspection, no JVD Rhythm: NSR Cardiovascular: normal peripheral pulses, normal rate, regular rhythm Respiratory/Chest: chest wall non-tender, lungs clear, normal breath sounds, no respiratory distress Abdomen: normal bowel sounds, non tender, soft, no organomegaly, no mass Extremities: normal range of motion, non-tender, normal inspection, no calf tenderness, no swelling Neurologic: human resources representative II-XII grossly normal, no motor/sensory deficits Intake and Output 08/26/19 08/27/19 19:00 07:00 Intake Total 820 ml 1140.33 ml Output Total 1000 ml 1 ml Balance -180 ml 1139.33 ml Intake Oral 720 ml 242 ml IV Total 100 ml 898.33 ml Output Urine Total 1000 ml Stool Total 1 ml # Voids 4 Laboratory Tests Test 08/27/19 06:10 White Blood Count 5.2 K/UL (4.8-10.8) Red Blood Count 2.57 M/UL (4.70-6.10) L Hemoglobin 8.1 G/DL (14.2-18.0) L Hematocrit 24.2 % (42.0-52.0) L Mean Corpuscular Volume 94 FL (80-99) Mean Corpuscular Hemoglobin 31.7 PG (27.0-31.0) H Mean Corpuscular Hemoglobin Concent 33.7 G/DL (32.0-36.0) Red Cell Distribution Width 13.2 % (11.6-14.8) Platelet Count 112 K/UL (150-450) L Mean Platelet Volume 6.6 FL (6.5-10.1) Neutrophils (%) (Auto) 52.2 % (45.0-75.0) Lymphocytes (%) (Auto) 35.4 % (20.0-45.0) Monocytes (%) (Auto) 8.0 % (1.0-10.0) Eosinophils (%) (Auto) 3.6 % (0.0-3.0) H Basophils (%) (Auto) 0.7 % (0.0-2.0) Sodium Level 140 MMOL/L (136-145) Potassium Level 3.5 MMOL/L (3.5-5.1) Chloride Level 104 MMOL/L (98-107) Carbon Dioxide Level 31 MMOL/L (21-32) Anion Gap 5 mmol/L (5-15) Blood Urea Nitrogen 11 mg/dL (7-18) Creatinine 0.7 MG/DL (0.55-1.30) Estimat Glomerular Filtration Rate > 60 mL/min (>60) Glucose Level 118 MG/DL (74-106) H Calcium Level 8.2 MG/DL (8.5-10.1) L Total Bilirubin 0.4 MG/DL (0.2-1.0) Aspartate Amino Transf (AST/SGOT) 42 U/L (15-37) H Alanine Aminotransferase (ALT/SGPT) 67 U/L (12-78) Alkaline Phosphatase 39 U/L (46-116) L Total Protein 5.9 G/DL (6.4-8.2) L Albumin 2.6 G/DL (3.4-5.0) L Globulin 3.3 g/dL Albumin/Globulin Ratio 0.8 (1.0-2.7) L Erickson Marin MD Aug 27, 2019 19:05
[2019-08-27] MEDS ORDERED: Lexiscan 0.4mg/5ml syringe IV PRN (19:15)
--- NOTE | 2019-08-27 19:30 | NUR ---
NURSE NOTES: Received patient from Carlos PATEL. Patient sitting at bedside, on room air, no signs of respiratory distress. Alert and oriented x4. Calm and cooperative. Call light within reach.
[2019-08-27 20:00] VITALS: BP 142/87
[2019-08-28] VITALS: BP 123/71
[2019-08-28 04:00] VITALS: BP 96/58
[2019-08-28] MEDS: Metoclopramide 10mg/2ml Inj IVP SCH ×4 (04:03→20:31)
[2019-08-28 07:55] VITALS: BP 130/87
[2019-08-28 08:02] LABS: BASOPHILS % (AUTO) 0.9 % (0.0-2.0); HEMATOCRIT 24.4 % (42.0-52.0); HEMOGLOBIN 8.3 G/DL (14.2-18.0); LYMPHOCYTES % (AUTO) 30.4 % (20.0-45.0); MEAN CORPUSCULAR VOLUME 93 FL (80-99); MONOCYTES % (AUTO) 8.8 % (1.0-10.0); NEUTROPHILS % (AUTO) 56.9 % (45.0-75.0); PLATELET COUNT 141 K/UL (150-450); RED BLOOD COUNT 2.62 M/UL (4.70-6.10); RED CELL DISTRIBUTION WIDTH 13.6 % (11.6-14.8)
[2019-08-28 08:32] LABS: ALANINE AMINOTRANSFERASE 66 U/L (12-78); ALBUMIN 2.8 G/DL (3.4-5.0); ALBUMIN/GLOBULIN RATIO 0.8 (1.0-2.7); ALKALINE PHOSPHATASE 42 U/L (46-116); ANION GAP 7 mmol/L (5-15); ASPARTATE AMINO TRANSFERASE 45 U/L (15-37); BILIRUBIN,TOTAL 0.5 MG/DL (0.2-1.0); BLOOD UREA NITROGEN 6 mg/dL (7-18); CALCIUM 8.6 MG/DL (8.5-10.1); CARBON DIOXIDE 29 MMOL/L (21-32); CHLORIDE 104 MMOL/L (98-107); CREATININE 0.6 MG/DL (0.55-1.30); POTASSIUM 3.4 MMOL/L (3.5-5.1); SODIUM 140 MMOL/L (136-145)
[2019-08-28] MEDS: Losartan 25mg tab ORAL SCH (08:59)
[2019-08-28] MEDS: Carvedilol 6.25mg Tab ORAL SCH (09:00)
[2019-08-28] MEDS: Sucralfate 1gm tab ORAL SCH ×4 (09:00→20:29)
[2019-08-28] MEDS: Docusate 100mg cap ORAL SCH ×2 (09:00→20:29)
[2019-08-28] MEDS: Pantoprazole Inj IVP SCH ×2 (09:01→20:30)
[2019-08-28] MEDS: Spironolactone 25mg tab ORAL SCH (09:01)
--- NOTE | 2019-08-28 09:05 | NUR ---
CASE MANAGEMENT:REVIEW 08/28/19 SI: AC/CHR CHF EF 30%. NSVT ACS/ELEVATED TROPONIN 97.2 88 20 130/87 100% ON RA H/H-8.3/24.4 PLT-141 AST+45 IS: IVF@75/HR ALDACTONE PO QD COREG PO QD CARAFATE PO QID : TELEMETRY STATUS PLAN: STRESS TEST MAY NEED LIFE VEST
--- NOTE | 2019-08-28 10:04 | Cardiology Progress Note ---
Assessment/Plan Status: stable Assessment/Plan Assessment/Plan Status: stable Assessment/Plan: Assessment: Chest pain CHF acute on chronic NSVT Elevated troponin/ACS Elevated LFT Plan: restart when cleared by GI :Aspirin/plavix d/c heparin Continue coreg/losartan - increased coreg dose 12.5 mg bid Start aldactone 25 mg daily Spot dose lasix prn Statin Nitro prn Stress test Wednesday arrange for life vest given systolic dysfunction LVEF 30% May need ICD if LVEF does not improve Subjective Cardiovascular: Reports: no symptoms Respiratory: Reports: no symptoms Gastrointestinal/Abdominal: Reports: no symptoms Genitourinary: Reports: no symptoms Subjective NO acute events, H.H stable, vitals stable, no complaints, stress test for wednesday Objective Last 24 Hour Vital Signs Date Time Temp Pulse Resp B/P (MAP) Pulse Ox O2 Delivery O2 Flow Rate FiO2 08/28/19 09:00 87 130/87 08/28/19 08:59 130/87 08/28/19 07:56 87 08/28/19 07:55 97.2 88 20 130/87 (101) 100 08/28/19 04:00 86 08/28/19 04:00 98.2 91 20 96/58 (71) 99 08/28/19 00:00 98.8 91 20 123/71 (88) 98 08/28/19 00:00 96 08/27/19 21:00 Room Air 08/27/19 20:00 98.2 91 18 142/87 (105) 96 08/27/19 20:00 90 08/27/19 16:00 98.3 88 16 142/71 (94) 98 08/27/19 16:00 88 08/27/19 12:00 97.7 82 20 153/83 (106) 100 08/27/19 12:00 87 General Appearance: no apparent distress, alert EENT: PERRL/EOMI, normal ENT inspection, TMs normal, pharynx normal Neck: non-tender, normal alignment, supple, normal inspection, no JVD Rhythm: NSR Cardiovascular: normal peripheral pulses, normal rate, regular rhythm Respiratory/Chest: chest wall non-tender, lungs clear, normal breath sounds, no respiratory distress, no accessory muscle use, respiratory distress Abdomen: normal bowel sounds, non tender, soft, no organomegaly, no mass Extremities: normal range of motion, non-tender, normal inspection, no calf tenderness, no swelling Neurologic: hardness tester II-XII grossly normal, no motor/sensory deficits Intake and Output 08/27/19 08/28/19 18:59 06:59 Intake Total 720 ml 450 ml Output Total 900 ml 400 ml Balance -180 ml 50 ml Intake Oral 720 ml IV Total 450 ml Output Urine Total 900 ml 400 ml Laboratory Tests Test 08/28/19 06:32 White Blood Count 5.0 K/UL (4.8-10.8) Red Blood Count 2.62 M/UL (4.70-6.10) L Hemoglobin 8.3 G/DL (14.2-18.0) L Hematocrit 24.4 % (42.0-52.0) L Mean Corpuscular Volume 93 FL (80-99) Mean Corpuscular Hemoglobin 31.6 PG (27.0-31.0) H Mean Corpuscular Hemoglobin Concent 34.0 G/DL (32.0-36.0) Red Cell Distribution Width 13.6 % (11.6-14.8) Platelet Count 141 K/UL (150-450) L Mean Platelet Volume 6.6 FL (6.5-10.1) Neutrophils (%) (Auto) 56.9 % (45.0-75.0) Lymphocytes (%) (Auto) 30.4 % (20.0-45.0) Monocytes (%) (Auto) 8.8 % (1.0-10.0) Eosinophils (%) (Auto) 3.0 % (0.0-3.0) Basophils (%) (Auto) 0.9 % (0.0-2.0) Sodium Level 140 MMOL/L (136-145) Potassium Level 3.4 MMOL/L (3.5-5.1) L Chloride Level 104 MMOL/L (98-107) Carbon Dioxide Level 29 MMOL/L (21-32) Anion Gap 7 mmol/L (5-15) Blood Urea Nitrogen 6 mg/dL (7-18) L Creatinine 0.6 MG/DL (0.55-1.30) Estimat Glomerular Filtration Rate > 60 mL/min (>60) Glucose Level 108 MG/DL (74-106) H Calcium Level 8.6 MG/DL (8.5-10.1) Total Bilirubin 0.5 MG/DL (0.2-1.0) Aspartate Amino Transf (AST/SGOT) 45 U/L (15-37) H Alanine Aminotransferase (ALT/SGPT) 66 U/L (12-78) Alkaline Phosphatase 42 U/L (46-116) L Total Protein 6.3 G/DL (6.4-8.2) L Albumin 2.8 G/DL (3.4-5.0) L Globulin 3.5 g/dL Albumin/Globulin Ratio 0.8 (1.0-2.7) L Erickson Marin MD Aug 28, 2019 10:04
--- NOTE | 2019-08-28 11:16 | GI Progress Note ---
Assessment/Plan Problems: (1) Elevated troponin ICD Codes: R79.89 - Other specified abnormal findings of blood chemistry SNOMED: 622586327, 721526041, 928529057 (2) Chest pain ICD Codes: R07.9 - Chest pain, unspecified SNOMED: 64539616 (3) Abnormal LFTs ICD Codes: R94.5 - Abnormal results of liver function studies SNOMED: 741086647 Status: stable Status Narrative Discussed with Dr. Viera. Assessment/Plan APCT reviewed hepatitis panel negative no recurrent bleed post EGD ppi to Q12 fu cbc repeat lfts>>>improving carafate pending cardiac stress test dc ivf The patient was seen and examined at bedside and all new and available data was reviewed in the patients chart. I agree with the above findings, impression and plan. (Patient seen earlier today. Signature stamp does not reflect patient encounter time.). - Cecilio Viera MD Subjective Gastrointestinal/Abdominal: Reports: no symptoms Objective Last 24 Hour Vital Signs Date Time Temp Pulse Resp B/P (MAP) Pulse Ox O2 Delivery O2 Flow Rate FiO2 08/28/19 09:00 87 130/87 08/28/19 08:59 130/87 08/28/19 07:56 87 08/28/19 07:55 97.2 88 20 130/87 (101) 100 08/28/19 04:00 86 08/28/19 04:00 98.2 91 20 96/58 (71) 99 08/28/19 00:00 98.8 91 20 123/71 (88) 98 08/28/19 00:00 96 08/27/19 21:00 Room Air 08/27/19 20:00 98.2 91 18 142/87 (105) 96 08/27/19 20:00 90 08/27/19 16:00 98.3 88 16 142/71 (94) 98 08/27/19 16:00 88 08/27/19 12:00 97.7 82 20 153/83 (106) 100 08/27/19 12:00 87 Intake and Output 08/27/19 08/28/19 19:00 07:00 Intake Total 720 ml 525 ml Output Total 900 ml 400 ml Balance -180 ml 125 ml Intake Oral 720 ml IV Total 525 ml Output Urine Total 900 ml 400 ml Laboratory Tests Test 08/28/19 06:32 White Blood Count 5.0 K/UL (4.8-10.8) Red Blood Count 2.62 M/UL (4.70-6.10) L Hemoglobin 8.3 G/DL (14.2-18.0) L Hematocrit 24.4 % (42.0-52.0) L Mean Corpuscular Volume 93 FL (80-99) Mean Corpuscular Hemoglobin 31.6 PG (27.0-31.0) H Mean Corpuscular Hemoglobin Concent 34.0 G/DL (32.0-36.0) Red Cell Distribution Width 13.6 % (11.6-14.8) Platelet Count 141 K/UL (150-450) L Mean Platelet Volume 6.6 FL (6.5-10.1) Neutrophils (%) (Auto) 56.9 % (45.0-75.0) Lymphocytes (%) (Auto) 30.4 % (20.0-45.0) Monocytes (%) (Auto) 8.8 % (1.0-10.0) Eosinophils (%) (Auto) 3.0 % (0.0-3.0) Basophils (%) (Auto) 0.9 % (0.0-2.0) Sodium Level 140 MMOL/L (136-145) Potassium Level 3.4 MMOL/L (3.5-5.1) L Chloride Level 104 MMOL/L (98-107) Carbon Dioxide Level 29 MMOL/L (21-32) Anion Gap 7 mmol/L (5-15) Blood Urea Nitrogen 6 mg/dL (7-18) L Creatinine 0.6 MG/DL (0.55-1.30) Estimat Glomerular Filtration Rate > 60 mL/min (>60) Glucose Level 108 MG/DL (74-106) H Calcium Level 8.6 MG/DL (8.5-10.1) Total Bilirubin 0.5 MG/DL (0.2-1.0) Aspartate Amino Transf (AST/SGOT) 45 U/L (15-37) H Alanine Aminotransferase (ALT/SGPT) 66 U/L (12-78) Alkaline Phosphatase 42 U/L (46-116) L Total Protein 6.3 G/DL (6.4-8.2) L Albumin 2.8 G/DL (3.4-5.0) L Globulin 3.5 g/dL Albumin/Globulin Ratio 0.8 (1.0-2.7) L Height (Feet): 5 Height (Inches): 6.00 Weight (Pounds): 215 General Appearance: WD/WN, no apparent distress, alert Cardiovascular: normal rate Respiratory/Chest: normal breath sounds, no respiratory distress Abdominal Exam: normal bowel sounds, non tender, soft Extremities: normal range of motion, non-tender Smitha Boswell NP Aug 28, 2019 11:16
[2019-08-28 12:00] VITALS: BP 126/69
--- NOTE | 2019-08-28 14:29 | NUR ---
*-* INSURANCE *-* ALL CLINICALS HAVE BEEN [facility]ED [facility]; [facility] P:[phone] F: [phone] (FAX CLINICALS HERE AND TO [phone])
--- NOTE | 2019-08-28 14:30 | General Progress Note ---
Assessment/Plan Status: stable Assessment/Plan: Mr. Le is a 64 year old male with hx of systolic chronic sCHF, HTN, presenting with acute onset chest pain, found to have transaminitis. #Chest pain #ACS #HTN #Acute on Chronic systolic CHF, HFrEF 30% #NSVT -s/p heparin gtt x 48 hrs (08/21-08/23) -TTE with EF 30%. severe LV dysfunction. -Continue coreg 6.25 BID, losartan 25 daily -Off Lasix for now -Cardiology following: restart ASA/Plavix when cleared by GI -Stress test today #Hematemesis #GIB #acute blood loss anemia -transfuse for Hgb <7 -s/p EGD and epi injection by GI (08/23) -s/p protonix gtt -cont. PPI BID -start feeding. -PT ordered for weakness (08/24) -GI following: Carafate #Transaminitis - downtrending #Abdominal pain -CT A/P unremarkable. -GI following: PPI, carafate Time spent on encounter: 35 minutes, >50% time spent on pt counseling and coordination of care. Time of note doesn't reflect time of encounter. Subjective Date patient seen: Aug 28, 2019 Time patient seen: 09:00 ROS Limited/Unobtainable: No Constitutional: Denies: chills, fever Cardiovascular: Denies: chest pain, irregular heart rate Respiratory: Denies: cough, shortness of breath Neurologic/Psychiatric: Denies: anxiety Endocrine: Denies: excessive sweating Hematologic/Lymphatic: Denies: anemia Allergies: Coded Allergies: No Known Allergies (Unverified , 08/21/19) Subjective Follow up for acute blood loss anemia, acute on chronic systolic CHF Feeling well today, no new complaints. Going for stress testing today. Objective Last 24 Hour Vital Signs Date Time Temp Pulse Resp B/P (MAP) Pulse Ox O2 Delivery O2 Flow Rate FiO2 08/28/19 14:03 Room Air 08/28/19 12:00 83 08/28/19 12:00 97.9 91 20 126/69 (88) 100 08/28/19 09:00 Room Air 08/28/19 09:00 87 130/87 08/28/19 08:59 130/87 08/28/19 07:56 87 08/28/19 07:55 97.2 88 20 130/87 (101) 100 08/28/19 04:00 86 08/28/19 04:00 98.2 91 20 96/58 (71) 99 08/28/19 00:00 98.8 91 20 123/71 (88) 98 08/28/19 00:00 96 08/27/19 21:00 Room Air 08/27/19 20:00 98.2 91 18 142/87 (105) 96 08/27/19 20:00 90 08/27/19 16:00 98.3 88 16 142/71 (94) 98 08/27/19 16:00 88 Intake and Output 08/27/19 08/28/19 19:00 07:00 Intake Total 720 ml 525 ml Output Total 900 ml 400 ml Balance -180 ml 125 ml Intake Oral 720 ml IV Total 525 ml Output Urine Total 900 ml 400 ml Laboratory Tests 08/28/19 06:32: White Blood Count 5.0, Red Blood Count 2.62L, Hemoglobin 8.3L, Hematocrit 24.4L , Mean Corpuscular Volume 93, Mean Corpuscular Hemoglobin 31.6H, Mean Corpuscular Hemoglobin Concent 34.0, Red Cell Distribution Width 13.6, Platelet Count 141L, Mean Platelet Volume 6.6, Neutrophils (%) (Auto) 56.9, Lymphocytes ( %) (Auto) 30.4, Monocytes (%) (Auto) 8.8, Eosinophils (%) (Auto) 3.0, Basophils (%) (Auto) 0.9, Sodium Level 140, Potassium Level 3.4L, Chloride Level 104, Carbon Dioxide Level 29, Anion Gap 7, Blood Urea Nitrogen 6L, Creatinine 0.6, Estimat Glomerular Filtration Rate > 60, Glucose Level 108H, Calcium Level 8.6, Total Bilirubin 0.5, Aspartate Amino Transf (AST/SGOT) 45H, Alanine Aminotransferase (ALT/SGPT) 66, Alkaline Phosphatase 42L, Total Protein 6.3L, Albumin 2.8L, Globulin 3.5, Albumin/Globulin Ratio 0.8L Height (Feet): 5 Height (Inches): 6.00 Weight (Pounds): 215 General Appearance: no apparent distress, alert Neck: supple Cardiovascular: normal rate, regular rhythm Respiratory/Chest: lungs clear, normal breath sounds Abdomen: non tender, soft Edema: mild edema Tirso Christie MD Aug 28, 2019 14:30
--- NOTE | 2019-08-28 15:33 | NUR ---
NURSE NOTES: Received report Carlos PATEL. Pt in bed awake and orientedx4 sitting in a chair and able to make needs known. IV site in right upper shoulder 22G running with NS@100ml/hr patent and asymptomatic. Denied any pain. No c/o SOB. Dr. Mathias notified of K+ 3.4 today. No new order received. Will continue to plan of care.
--- NOTE | 2019-08-28 15:58 | Diagnostic Imaging Report ---
Indication: chest pain Technique: The study was conducted under the supervision of a supervisor specialty plant. lexiscan (regadenoson) infusion over 10 seconds followed by intravenous administration of 30.6 mCi of technetium 99m Myoview was performed. Three plane SPECT imaging of the heart was then performed. A resting study was performed as part of the one-day protocol with 10.1 mCi of technetium 99m myoview injected intravenously at that time. Three plane SPECT imaging of the heart was obtained. Comparison: None Clinical data: 1. Clinical response: Non ischemic 2. Electrocardiographic response: Non ischemic Findings: The myocardial perfusion scan demonstrates LVEF of 30%. LV dilatation demonstrated. Heterogeneous perfusion noted without any definite areas of reversibility or ischemia. IMPRESSION: LV dilatation. No definite evidence of myocardial ischemia. LVEF estimated at 30% Note: Estimation of LVEF on this examination is likely inaccurate. In our experience, the calculated LVEF is usually overestimated on this software program.
[2019-08-28 16:00] VITALS: BP 101/71
--- NOTE | 2019-08-28 19:30 | NUR ---
NURSE NOTES: IVF off. Ordered while patient was NPO. Patient is no longer NPO.
--- NOTE | 2019-08-28 19:30 | NUR ---
NURSE NOTES: Received patient from Min RN. Patient sitting up on the bed, on room air, no signs of respiratory distress. Alert and oriented x4. Calm and cooperative. Call light within reach. Right upper arm 22 gauge piv intact, patent, dressing dry, no signs of infiltration. Bed in low position, locked, call light within reach.
--- NOTE | 2019-08-28 19:30 | NUR ---
HAND-OFF: Report given to West PATEL. Pt remains stable.
[2019-08-28 20:00] VITALS: BP 117/75
[2019-08-29] VITALS: BP 114/73
[2019-08-29] MEDS: Metoclopramide 10mg/2ml Inj IVP SCH ×3 (03:33→15:00)
[2019-08-29 04:00] VITALS: BP 101/71
--- NOTE | 2019-08-29 07:10 | NUR ---
NURSE NOTES: Received report from West PATEL. Pt in bed awake and orientedx4. No c/o pain. Resting comfortably in bed. Denied SOB on room air. IV site in right upper shoulder 22G SL patent and asymptomatic. Side railsx2 up for safety. Call light within easy reach. Bed in lowest position and locked. Will continue to plan of care.
[2019-08-29 07:19] LABS: BASOPHILS % (AUTO) 0.8 % (0.0-2.0); EOSINOPHILS % (AUTO) 3.4 % (0.0-3.0); HEMATOCRIT 25.3 % (42.0-52.0); HEMOGLOBIN 8.3 G/DL (14.2-18.0); LYMPHOCYTES % (AUTO) 28.9 % (20.0-45.0); MEAN CORPUSCULAR VOLUME 93 FL (80-99); MONOCYTES % (AUTO) 11.9 % (1.0-10.0); NEUTROPHILS % (AUTO) 54.9 % (45.0-75.0); PLATELET COUNT 165 K/UL (150-450); RED BLOOD COUNT 2.71 M/UL (4.70-6.10); RED CELL DISTRIBUTION WIDTH 13.5 % (11.6-14.8); WHITE BLOOD COUNT 5.1 K/UL (4.8-10.8)
[2019-08-29 07:52] LABS: ALANINE AMINOTRANSFERASE 64 U/L (12-78); ALBUMIN 2.8 G/DL (3.4-5.0); ALBUMIN/GLOBULIN RATIO 0.8 (1.0-2.7); ALKALINE PHOSPHATASE 46 U/L (46-116); ANION GAP 10 mmol/L (5-15); ASPARTATE AMINO TRANSFERASE 39 U/L (15-37); BILIRUBIN,TOTAL 0.5 MG/DL (0.2-1.0); BLOOD UREA NITROGEN 11 mg/dL (7-18); CALCIUM 8.6 MG/DL (8.5-10.1); CARBON DIOXIDE 25 MMOL/L (21-32); CHLORIDE 105 MMOL/L (98-107); CREATININE 0.7 MG/DL (0.55-1.30); PHOSPHORUS 4.1 MG/DL (2.5-4.9); POTASSIUM 3.7 MMOL/L (3.5-5.1); SODIUM 140 MMOL/L (136-145)
[2019-08-29 08:00] VITALS: BP 120/76
[2019-08-29] MEDS: Pantoprazole Inj IVP SCH (08:59)
[2019-08-29] MEDS: Spironolactone 25mg tab ORAL SCH (09:00)
[2019-08-29] MEDS: Losartan 25mg tab ORAL SCH (09:00)
[2019-08-29] MEDS: Docusate 100mg cap ORAL SCH (09:00)
[2019-08-29] MEDS: Carvedilol 6.25mg Tab ORAL SCH (09:00)
[2019-08-29] MEDS: Sucralfate 1gm tab ORAL SCH ×2 (09:00→13:00)
--- NOTE | 2019-08-29 09:14 | NUR ---
CASE MANAGEMENT:REVIEW 08/29/19 SI: AC/CHR CHF EF 30%. NSVT ACS/ELEVATED TROPONIN 97.9 95 20 120/76 99% ON RA H/H-8.3/25.3 MAG-1.7 IS: ALDACTONE PO QD COREG PO QD CARAFATE PO QID COZAAR PO QD K-DUR PO QD IV REGLAN Q6HRS IV PROTONIX Q12 : TELEMETRY STATUS PLAN: LABOR RELATIONS DIRECTOR IS RECOMMENDING [facility] WILL NEED AUTHORIZATION FROM [employer] ~ LEFT MESSAGE FOR DOMINIQUE BRIGHT @ [facility]
--- NOTE | 2019-08-29 10:18 | NUR ---
[facility] DR MEJÍA REQUESTED [facility] FOR PATIENT FLAME CUTTING MACHINE OPERATOR CONTACTED [facility] REP. PASTOR T: [phone] PLAN IS TO DELIVER [facility] LATER THIS AFTERNOON
--- NOTE | 2019-08-29 10:24 | General Progress Note ---
Assessment/Plan Problem List: (1) Hematemesis ICD Codes: K92.0 - Hematemesis SNOMED: 2819676 (2) Abnormal LFTs ICD Codes: R94.5 - Abnormal results of liver function studies SNOMED: 975113551 (3) Chest pain ICD Codes: R07.9 - Chest pain, unspecified SNOMED: 41114693 (4) Elevated troponin ICD Codes: R79.89 - Other specified abnormal findings of blood chemistry SNOMED: 327650849, 230949489, 333214626 (5) Diverticulosis ICD Codes: K57.90 - Diverticulosis of intestine, part unspecified, without perforation or abscess without bleeding SNOMED: 906188741 (6) Kidney calculi ICD Codes: N20.0 - Calculus of kidney SNOMED: 28627870 (7) Fatty liver ICD Codes: K76.0 - Fatty (change of) liver, not elsewhere classified SNOMED: 948962845 Status: stable Assessment/Plan: no recurrent bleed post EGD ppi to Q12 fu cbc repeat lfts>>>improving carafate fu cardiology Subjective ROS Limited/Unobtainable: Yes Allergies: Coded Allergies: No Known Allergies (Unverified , 08/21/19) Objective Last 24 Hour Vital Signs Date Time Temp Pulse Resp B/P (MAP) Pulse Ox O2 Delivery O2 Flow Rate FiO2 08/29/19 09:00 95 120/76 08/29/19 09:00 120/76 08/29/19 08:35 Room Air 08/29/19 08:00 97.9 95 20 120/76 (91) 99 08/29/19 08:00 95 08/29/19 04:00 98.1 95 20 101/71 (81) 99 08/29/19 04:00 93 08/29/19 00:00 98.6 94 20 114/73 (87) 99 08/29/19 00:00 93 08/28/19 21:00 Room Air 08/28/19 20:00 103 08/28/19 20:00 98.1 95 20 117/75 (89) 97 08/28/19 16:00 97.0 92 18 101/71 (81) 100 08/28/19 16:00 110 08/28/19 14:03 Room Air 08/28/19 12:00 83 08/28/19 12:00 97.9 91 20 126/69 (88) 100 Intake and Output 08/28/19 08/29/19 19:00 07:00 Intake Total 250 ml Output Total 600 ml Balance -350 ml Intake Oral 250 ml Output Urine Total 600 ml # Voids 4 # Bowel Movements 1 Laboratory Tests 08/29/19 05:38: White Blood Count 5.1, Red Blood Count 2.71L, Hemoglobin 8.3L, Hematocrit 25.3L , Mean Corpuscular Volume 93, Mean Corpuscular Hemoglobin 30.8, Mean Corpuscular Hemoglobin Concent 33.0, Red Cell Distribution Width 13.5, Platelet Count 165, Mean Platelet Volume 6.0L, Neutrophils (%) (Auto) 54.9, Lymphocytes ( %) (Auto) 28.9, Monocytes (%) (Auto) 11.9H, Eosinophils (%) (Auto) 3.4H, Basophils (%) (Auto) 0.8, Sodium Level 140, Potassium Level 3.7, Chloride Level 105, Carbon Dioxide Level 25, Anion Gap 10, Blood Urea Nitrogen 11, Creatinine 0.7, Estimat Glomerular Filtration Rate > 60, Glucose Level 100, Calcium Level 8.6, Phosphorus Level 4.1, Magnesium Level 1.7L, Total Bilirubin 0.5, Aspartate Amino Transf (AST/SGOT) 39H, Alanine Aminotransferase (ALT/SGPT) 64, Alkaline Phosphatase 46, Total Protein 6.3L, Albumin 2.8L, Globulin 3.5, Albumin/ Globulin Ratio 0.8L Height (Feet): 5 Height (Inches): 6.00 Weight (Pounds): 213 General Appearance: alert EENT: normal ENT inspection Neck: supple Cardiovascular: normal rate Respiratory/Chest: decreased breath sounds Abdomen: normal bowel sounds, non tender, soft Extremities: non-tender Cecilio Viera MD Aug 29, 2019 10:24
--- NOTE | 2019-08-29 10:29 | Cardiology Progress Note ---
Assessment/Plan Status: stable Assessment/Plan Assessment/Plan Status: stable Assessment/Plan: Assessment: Chest pain CHF acute on chronic NSVT Elevated troponin/ACS Elevated LFT Plan: restart when cleared by GI :Aspirin/plavix d/c heparin Continue coreg/losartan - increased coreg dose 12.5 mg bid Start aldactone 25 mg daily Spot dose lasix prn Statin Nitro prn Stress test negative Pacemaker interrogation, patient unaware if device if PPM or ICD-> if no ICD then arrange lifevest - EP consulted to assist Clear for discharge Subjective Cardiovascular: Reports: no symptoms Respiratory: Reports: no symptoms Gastrointestinal/Abdominal: Reports: no symptoms Genitourinary: Reports: no symptoms Subjective NO acute events, H.H stable, vitals stable, no complaints, stress test negative Objective Last 24 Hour Vital Signs Date Time Temp Pulse Resp B/P (MAP) Pulse Ox O2 Delivery O2 Flow Rate FiO2 08/29/19 09:00 95 120/76 08/29/19 09:00 120/76 08/29/19 08:35 Room Air 08/29/19 08:00 97.9 95 20 120/76 (91) 99 08/29/19 08:00 95 08/29/19 04:00 98.1 95 20 101/71 (81) 99 08/29/19 04:00 93 08/29/19 00:00 98.6 94 20 114/73 (87) 99 08/29/19 00:00 93 08/28/19 21:00 Room Air 08/28/19 20:00 103 08/28/19 20:00 98.1 95 20 117/75 (89) 97 08/28/19 16:00 97.0 92 18 101/71 (81) 100 08/28/19 16:00 110 08/28/19 14:03 Room Air 08/28/19 12:00 83 08/28/19 12:00 97.9 91 20 126/69 (88) 100 General Appearance: no apparent distress, alert EENT: PERRL/EOMI, normal ENT inspection, TMs normal, pharynx normal Neck: non-tender, normal alignment, supple, normal inspection, no JVD Rhythm: NSR Cardiovascular: normal peripheral pulses, normal rate Respiratory/Chest: chest wall non-tender, lungs clear, normal breath sounds, no respiratory distress, no accessory muscle use Abdomen: normal bowel sounds, non tender, soft, no organomegaly, no mass Extremities: normal range of motion, non-tender Neurologic: process engineering intern II-XII grossly normal, no motor/sensory deficits Intake and Output 08/28/19 08/29/19 19:00 07:00 Intake Total 250 ml Output Total 600 ml Balance -350 ml Intake Oral 250 ml Output Urine Total 600 ml # Voids 4 # Bowel Movements 1 Laboratory Tests Test 08/29/19 05:38 White Blood Count 5.1 K/UL (4.8-10.8) Red Blood Count 2.71 M/UL (4.70-6.10) L Hemoglobin 8.3 G/DL (14.2-18.0) L Hematocrit 25.3 % (42.0-52.0) L Mean Corpuscular Volume 93 FL (80-99) Mean Corpuscular Hemoglobin 30.8 PG (27.0-31.0) Mean Corpuscular Hemoglobin Concent 33.0 G/DL (32.0-36.0) Red Cell Distribution Width 13.5 % (11.6-14.8) Platelet Count 165 K/UL (150-450) Mean Platelet Volume 6.0 FL (6.5-10.1) L Neutrophils (%) (Auto) 54.9 % (45.0-75.0) Lymphocytes (%) (Auto) 28.9 % (20.0-45.0) Monocytes (%) (Auto) 11.9 % (1.0-10.0) H Eosinophils (%) (Auto) 3.4 % (0.0-3.0) H Basophils (%) (Auto) 0.8 % (0.0-2.0) Sodium Level 140 MMOL/L (136-145) Potassium Level 3.7 MMOL/L (3.5-5.1) Chloride Level 105 MMOL/L (98-107) Carbon Dioxide Level 25 MMOL/L (21-32) Anion Gap 10 mmol/L (5-15) Blood Urea Nitrogen 11 mg/dL (7-18) Creatinine 0.7 MG/DL (0.55-1.30) Estimat Glomerular Filtration Rate > 60 mL/min (>60) Glucose Level 100 MG/DL (74-106) Calcium Level 8.6 MG/DL (8.5-10.1) Phosphorus Level 4.1 MG/DL (2.5-4.9) Magnesium Level 1.7 MG/DL (1.8-2.4) L Total Bilirubin 0.5 MG/DL (0.2-1.0) Aspartate Amino Transf (AST/SGOT) 39 U/L (15-37) H Alanine Aminotransferase (ALT/SGPT) 64 U/L (12-78) Alkaline Phosphatase 46 U/L (46-116) Total Protein 6.3 G/DL (6.4-8.2) L Albumin 2.8 G/DL (3.4-5.0) L Globulin 3.5 g/dL Albumin/Globulin Ratio 0.8 (1.0-2.7) L Erickson Marin MD Aug 29, 2019 10:29
--- NOTE | 2019-08-29 10:44 | Cardiac Electrophysiology PN ---
Subjective Subjective [id number] Objective Last 24 Hour Vital Signs Date Time Temp Pulse Resp B/P (MAP) Pulse Ox O2 Delivery O2 Flow Rate FiO2 08/29/19 09:00 95 120/76 08/29/19 09:00 120/76 08/29/19 08:35 Room Air 08/29/19 08:00 97.9 95 20 120/76 (91) 99 08/29/19 08:00 95 08/29/19 04:00 98.1 95 20 101/71 (81) 99 08/29/19 04:00 93 08/29/19 00:00 98.6 94 20 114/73 (87) 99 08/29/19 00:00 93 08/28/19 21:00 Room Air 08/28/19 20:00 103 08/28/19 20:00 98.1 95 20 117/75 (89) 97 08/28/19 16:00 97.0 92 18 101/71 (81) 100 08/28/19 16:00 110 08/28/19 14:03 Room Air 08/28/19 12:00 83 08/28/19 12:00 97.9 91 20 126/69 (88) 100 Intake and Output 08/28/19 08/29/19 19:00 07:00 Intake Total 250 ml Output Total 600 ml Balance -350 ml Intake Oral 250 ml Output Urine Total 600 ml # Voids 4 # Bowel Movements 1 Laboratory Tests Test 08/29/19 05:38 White Blood Count 5.1 K/UL (4.8-10.8) Red Blood Count 2.71 M/UL (4.70-6.10) L Hemoglobin 8.3 G/DL (14.2-18.0) L Hematocrit 25.3 % (42.0-52.0) L Mean Corpuscular Volume 93 FL (80-99) Mean Corpuscular Hemoglobin 30.8 PG (27.0-31.0) Mean Corpuscular Hemoglobin Concent 33.0 G/DL (32.0-36.0) Red Cell Distribution Width 13.5 % (11.6-14.8) Platelet Count 165 K/UL (150-450) Mean Platelet Volume 6.0 FL (6.5-10.1) L Neutrophils (%) (Auto) 54.9 % (45.0-75.0) Lymphocytes (%) (Auto) 28.9 % (20.0-45.0) Monocytes (%) (Auto) 11.9 % (1.0-10.0) H Eosinophils (%) (Auto) 3.4 % (0.0-3.0) H Basophils (%) (Auto) 0.8 % (0.0-2.0) Sodium Level 140 MMOL/L (136-145) Potassium Level 3.7 MMOL/L (3.5-5.1) Chloride Level 105 MMOL/L (98-107) Carbon Dioxide Level 25 MMOL/L (21-32) Anion Gap 10 mmol/L (5-15) Blood Urea Nitrogen 11 mg/dL (7-18) Creatinine 0.7 MG/DL (0.55-1.30) Estimat Glomerular Filtration Rate > 60 mL/min (>60) Glucose Level 100 MG/DL (74-106) Calcium Level 8.6 MG/DL (8.5-10.1) Phosphorus Level 4.1 MG/DL (2.5-4.9) Magnesium Level 1.7 MG/DL (1.8-2.4) L Total Bilirubin 0.5 MG/DL (0.2-1.0) Aspartate Amino Transf (AST/SGOT) 39 U/L (15-37) H Alanine Aminotransferase (ALT/SGPT) 64 U/L (12-78) Alkaline Phosphatase 46 U/L (46-116) Total Protein 6.3 G/DL (6.4-8.2) L Albumin 2.8 G/DL (3.4-5.0) L Globulin 3.5 g/dL Albumin/Globulin Ratio 0.8 (1.0-2.7) L Anthony Lewis MD Aug 29, 2019 10:44
--- NOTE | 2019-08-29 11:50 | NUR ---
*-* INSURANCE *-* ALL CLINICALS HAVE BEEN FAXED TO; [facility] P:[phone] F: [phone] (FAX CLINICALS HERE AND TO [phone])
--- NOTE | 2019-08-29 11:52 | NUR ---
*-* INSURANCE *-* ALL CLINICALS HAVE BEEN FAXED TO: J[employer] BR[employer] P:[phone] F: [phone] (FAX CLINICALS ALSO TO [phone]) ALSO FAXED TO: [phone]
[2019-08-29 12:00] VITALS: BP 118/72
[2019-08-29] MEDS ORDERED: SERTRALINE HCL25 MG ORAL (12:39)
[2019-08-29] MEDS ORDERED: NITRO0.4 SL (12:39)
[2019-08-29] MEDS ORDERED: LOSARTAN POTASS50 MG ORAL (12:39)
[2019-08-29] MEDS ORDERED: ASPIRIN EC81 MG ORAL (12:39)
[2019-08-29] MEDS ORDERED: FUROSEMIDE40 MG ORAL (12:39)
[2019-08-29] MEDS ORDERED: CARVEDILOL6.25 MG ORAL (12:39)
[2019-08-29] MEDS ORDERED: ATORVASTATIN CA40 MG ORAL (12:39)
--- NOTE | 2019-08-29 12:48 | NUR ---
ROLL FORMER NOTE ELVIS spoke w/ ELVIS Bowser from [facility] [phone] that pt is no longer in her program and was dis-enrolled after being admitted to ICU. Marva recommended ELVIS to contact Kelsey Shahid, psych social worker from [facility] [phone] ([address], [place] [address]). Per Marva, Kelsey assisted pt placing at her program. ELVIS left a vm to Kelsey for call back. ELVIS left a vm to the residential coordinators at [facility] [phone] and [phone] for call back. Signed: 08/29/19 at 1254 by RASHEL LEAL <Co-Signature Required>
[2019-08-29] MEDS ORDERED: CARAFATE1 GM/10 M1 ORAL (12:59)
[2019-08-29] MEDS ORDERED: PROTONIX40 MG ORAL (12:59)
--- NOTE | 2019-08-29 14:30 | Discharge Summary ---
Discharge Summary Hospital Course Date of Admission Aug 21, 2019 at 18:30 Date of Discharge 08/29/19 Admitting Diagnosis chest pain, acs HPI Pete Le is a 64 year old male who was admitted on Aug 21, 2019 at 18:30 for Chest Pain,Acute Coronary Syndrome Consultations Cardiology GI Hospital Course Mr. Le is a 64 year old male with hx of systolic chronic sCHF, HTN, presenting with acute onset chest pain, found to have transaminitis. Admitted to the medical service with ACS, treated with heparin drip as per cardiology recs Patient developed acute blood loss anemia, UGI bleed, underwent EGD by Dr. Viera, s/p epi injection by GI, will continue PPI and Carafate as outpatient Patient underwent cardiac stress testing that was negative, noted to have ICD so life vest not necessary, cleared by Cardiology for discharge home Discharge Diagnoses: #Chest pain #ACS #HTN #Acute on Chronic systolic CHF, HFrEF 30% #NSVT #Hematemesis #GIB #acute blood loss anemia #Transaminitis - downtrending #Abdominal pain Time spent on preparing discharge was 35 minutes, >50% time spent on pt counseling and coordination of care. Time of note doesn't reflect time of encounter. Discharge Medications New Medications: Pantoprazole* (Protonix*) 40 Mg Tablet.dr 40 MG ORAL DAILY for 30 Days, #30 TAB Sucralfate (Carafate) 1 Gm/10 Ml Oral.susp 1 GM ORAL FOUR TIMES A DAY for 14 Days, #14 ML Continued Medications: Aspirin Ec* (Aspirin Ec*) 81 Mg Tablet.dr 81 MG ORAL DAILY for CAD, TAB Atorvastatin Calcium* (Atorvastatin Calcium*) 40 Mg Tablet 40 MG ORAL BEDTIME for HLD, TAB Carvedilol* (Carvedilol*) 6.25 Mg Tablet 6.25 MG ORAL EVERY 12 HOURS for CHF, TAB Furosemide* (Lasix*) 40 Mg Tablet 40 MG ORAL DAILY for CHF, TAB Losartan Potassium* (Losartan Potassium*) 50 Mg Tablet 50 MG ORAL DAILY for HTN, TAB Nitroglycerin 0.4MG table* (Nitroglycerin*) 0.4 Mg Tab.subl 0.4 MG SL .Q5MIN X 3 DOSES PRN for CHEST PAIN, TAB Sertraline Hcl* (Sertraline Hcl*) 25 Mg Tablet 50 MG ORAL DAILY for DEPRESSION, TAB Discharge Condition Upon Discharge: improving Discharge Vital Signs Last Vital Signs Date Time Temp Pulse Resp B/P (MAP) Pulse Ox O2 Delivery O2 Flow Rate FiO2 08/29/19 12:00 94 08/29/19 09:00 120/76 08/29/19 08:35 Room Air 08/29/19 08:00 97.9 20 99 08/26/19 21:00 2.0 2.0 08/25/19 07:28 28 Discharge Disposition Patient was discharged to home Discharge Diagnoses: (1) Hematemesis (2) Chest pain (3) Metabolic acidosis (4) Elevated troponin Tirso Christie MD Aug 29, 2019 14:30
--- NOTE | 2019-08-29 15:00 | NUR ---
PROGRAM SUPPORT CLERK NOLAN LEAL received a phone call from Kelsey and obtained information. Pt was placed at [facility] through [facility] interim housing program [phone]. ELVIS requested application form from [facility] for [place] [phone]. Signed: 08/29/19 at 1503 by RASHEL LEAL <Co-Signature Required>
--- NOTE | 2019-08-29 16:06 | NUR ---
[employer]OL REGISTRAR NOTE SW discussed the case w/ assigned RN that pt is medically cleared and he does not F/U w/ his medical issue. SW spoke w/ Sushant from [facility] [phone]. Per Sushant, it will be first come first serve and encouraged pt to be there by 4:30pm. The address is [address] [place] [address]. Pt relayed information to pt. Pt reports he sees PCP at [facility]. SW also provided a community resource packet, the list of social security office (for replacing social security card), and the GR application w/ the list of [facility] offices in [place]. Pt also reports he lost his green card. SW encouraged pt to contact [facility] for replacement. SW also relayed information that [facility] [address] [place] [address] #[phone] will have the intake at 7pm. Pt verbalized understanding and agreed to be discharged to [facility]. ELVIS provided appropriate clothing i.e pants and a shirt. Signed: 08/29/19 at 1614 by RASHEL LEAL <Co-Signature Required>
--- NOTE | 2019-08-29 16:25 | NUR ---
Homeless Discharge: Patient is being discharged from medical care. Awake, alert and oriented x4. After care instructions, including referral to community resources were given. Patient verbalized understanding of After care instructions; at this time patient does not request medications, equipment. Social service spoke to the patient and discharge placement given to the patient. The patient will be discharged to [address] [place] [address]. Taxi voucher provided to the patient and RN called the taxi for the patient to be picked up to the address. Patient signed patient consent in the medical record for patient destination upon discharge. All medical devices such as IV, panel monitor and ID band were removed. Patient ambulated out with all personal belongings with steady gait with his own walker.
--- NOTE | 2019-08-29 18:15 | Consultation ---
DATE OF CONSULTATION: 08/29/2019 CARDIAC ELECTROPHYSIOLOGY CONSULTATION CONSULTING PHYSICIAN: Anthony Lewis M.D. REFERRING PHYSICIAN: Erickson Marin M.D. REASON FOR CONSULTATION: Evaluation of the patient's pacemaker versus defibrillator. HISTORY OF PRESENT ILLNESS: The patient is a 66-year-old gentleman with history of hypertension and cardiomyopathy, who undergone a pacemaker versus defibrillator implantation at [facility] in June. The patient was evaluated by Dr. Marin for elevated troponin. He also has chest pain, did not improve. He is on aspirin and nitroglycerin. The patient also had episode of nonsustained ventricular tachycardia. His echocardiogram showed EF of 30%. The patient also had hematemesis and had abnormal liver function test, and underwent EGD by Dr. Viera that showed no recurrent bleed and stress test by Dr. Marin as well. REVIEW OF SYSTEMS: Review of systems was negative other than what was mentioned in the history of present illness. PAST MEDICAL HISTORY: As mentioned above. FAMILY HISTORY: Noncontributory. SOCIAL HISTORY: Does not smoke or drink alcohol. PHYSICAL EXAMINATION: VITAL SIGNS: Show blood pressure is 110/70, pulse 95, respirations , and temperature 97.9. HEAD AND NECK: Shows no JVD. LUNGS: Clear. CARDIOVASCULAR: Shows regular S1 and S2. Defibrillator incision in the left subclavian. ABDOMEN: Soft. EXTREMITIES: No pitting edema. LABORATORY AND DIAGNOSTIC DATA: White count of 5.1, hemoglobin 8.7, hematocrit 25.3, and platelet of 165,000. Sodium 140, potassium 3.7, BUN of 11, creatinine 0.7, and glucose of 100. Troponin is initially positive with subsequent was negative. ASSESSMENT AND PLAN: 1. Status post single-chamber defibrillator implantation based on chest x-ray and imaging. The patient does not need a LifeVest. We will try to find the brand of the defibrillator and interrogate that after further evaluation. 2. Congestive heart failure, EF of 30%. The patient is already on Coreg 12.5 mg, Aldactone 25 mg daily, Cozaar 25 mg daily. and increase the Coreg. Further evaluation by Dr. Marin. 3. Cardiomyopathy, ischemic versus nonischemic. The patient had cardiac catheterization at [facility], we will try to get those records. 4. Status post GI bleed. 5. Nonsustained ventricular tachycardia. Thank you very much for allowing me to participate in the care of this patient. Please do not hesitate to contact me for any questions regarding my evaluation. Anthony Lewis M.D. DR: MANUEL JOB#: [id number] CC:
--- NOTE | 2019-08-30 16:35 | NUR ---
*-* INSURANCE *-* DISCHARGE SUMMARY HAS BEEN FAXED TO: JARED BRIGHT P:[phone] F: [phone] (FAX CLINICALS ALSO TO [phone]) ALSO FAXED TO: [phone]
== END 2019-08-29 16:25 | DRG 198 ==
LOC: EDBD 15:10 → EMR 15:40 → 2E 18:30 → EDBEDREQ 20:06 → 2E 20:41 → ICU 08-24 13:52 → 2E 08-25 14:22
PROC: 0W3P8ZZ Control Bleeding in Gastrointestinal Tract, Via Natural or Artificial Opening Endoscopic (ICD-10-PCS; principal; 2019-08-24 12:50)
DX: I24.9 Acute ischemic heart disease, unspecified (principal); K22.6 Gastro-esophageal laceration-hemorrhage syndrome; E87.2 Acidosis; I47.1 Supraventricular tachycardia; I11.0 Hypertensive heart disease with heart failure; I50.23 Acute on chronic systolic (congestive) heart failure; I42.9 Cardiomyopathy, unspecified; D62 Acute posthemorrhagic anemia; R94.5 Abnormal results of liver function studies; K57.90 Diverticulosis of intestine, part unspecified, without perforation or abscess without bleeding; N20.0 Calculus of kidney; K76.0 Fatty (change of) liver, not elsewhere classified; R74.0 Nonspecific elevation of levels of transaminase and lactic acid dehydrogenase [LDH]
CPT/HCPCS: 36415; 71045; 74177; 76700; 78452; 80053; 82248; 82962; 83690; 83735; 83880; 84100; 84484; 85025; 85610; 85730; 86705; 86709; 86803; 87081; 87340; 93005; 93017; 93306; 93970; 94003; 94150; 96374; 96375; 96376; 99285; J0171; J2405; J2765; J2785; J7030; J8499